=== PATIENT | male | born 1940 | race Caucasian/White ===

== ENCOUNTER 2018-06-10 12:21 | Inpatient (IN) ==
[2018-06-10] MEDS ORDERED: Sodium Chlor 0.9% Inj 500 ML IV.SIG SCH (13:00)
[2018-06-10 13:07] LABS: Baso # (Auto) 0.1 th/mm3 (0.0-0.2); Baso % (Auto) 0.6 % (0.0-2.0); Eos % (Auto) 0.1 % (0.0-4.0); Hematocrit 28.9 % (39.0-51.0); Hemoglobin 9.5 gm/dL (13.0-17.0); Lymph # (Auto) 0.7 th/mm3 (1.0-4.8); Lymph % (Auto) 7.5 % (9.0-44.0); Mean Corpuscular Hemoglobin 31.3 pg (27.0-34.0); Mean Corpuscular Volume 94.6 fL (80.0-100.0); Mean Platelet Volume 9.8 fL (7.0-11.0); Mono # (Auto) 1.2 th/mm3 (0.0-0.9); Mono % (Auto) 12.9 % (0.0-8.0); Neut # (Auto) 7.1 th/mm3 (1.8-7.7); Neut % (Auto) 78.9 % (16.0-70.0); Platelet Count 250 th/mm3 (150-450); Red Blood Count 3.05 mil/mm3 (4.50-5.90); Red Cell Distribution Width 21.1 % (11.6-17.2)
[2018-06-10 13:14] LABS: Bacteria,Urine Rare /hpf; Bilirubin,Urine Negative (Negative); Clarity,Urine Hazy (Clear); Color,Urine Yellow (Yellw/Straw); Glucose,Urine (UA) Negative (Negative); Leukocyte Esterase,Urine Trace (Negative); Nitrite,Urine Negative (Negative); Specific Gravity,Urine 1.015 (1.002-1.035)
[2018-06-10 13:17] LABS: Alanine Aminotransferase 22 U/L (12-78); Albumin 3.1 g/dL (3.4-5.0); Anion Gap 9 meq/L (5-15); Aspartate Aminotransferase 32 U/L (15-37); Blood Urea Nitrogen 33 mg/dL (7-18); Calcium 8.7 mg/dL (8.5-10.1); Carbon Dioxide 28.3 meq/L (21.0-32.0); Chloride 110 meq/L (98-107); Glomerular Filtration Rate 29 mL/min (>89); Glucose,Random 99 mg/dL (74-106); Magnesium 2.4 mg/dL (1.5-2.5); Potassium 4.5 meq/L (3.5-5.1); Sodium 147 meq/L (136-145)
[2018-06-10 13:21] LABS: Alkaline Phosphatase 73 U/L (45-117); Creatine Kinase 489 U/L (39-308); Total Protein 7.7 g/dL (6.4-8.2)
[2018-06-10 13:28] LABS: Troponin I 1.17 ng/mL (0.02-0.05)
[2018-06-10 13:37] LABS: Lymphocytes 6 % (9-44); Monocytes 19 % (0-8)
[2018-06-10 13:38] LABS: Platelet Estimate Normal (Normal)
[2018-06-10 13:41] LABS: CKMB Percent 0.8 % (0.0-4.0)
--- NOTE | 2018-06-10 13:56 | XR ---
EXAM DATE: 06/10/2018 1:49 PM EST AGE/SEX: 78 years / Male INDICATIONS: Fever. CLINICAL DATA: This is the patient's initial encounter. Patient reports that signs and symptoms have been present for 1 day and indicates a pain score of Nonresponsive. MEDICAL/SURGICAL HISTORY: Non-responsive. Non-responsive. COMPARISON: No prior exams available for comparison. FINDINGS: Minimal bibasilar airspace disease. Postsurgical features of prior median sternotomy. The cardiomedia stinal contours are unremarkable. Osseous structures are intact. CONCLUSION: 1. Minimal bibasilar airspace disease, presumably atelectasis. Formal PA and lateral views of the ch est may be obtained if there is continued clinical uncertainty. Electronically signed by: Dallas Pitts MD Board Certified Radiologist 06/10/2018 1:55 PM EST
[2018-06-10] MEDS ORDERED: Bisacodyl 10 MG Supp RECTAL PRN (14:38)
[2018-06-10] MEDS ORDERED: Acetaminophen 325 MG Tablet PO PRN (14:38)
[2018-06-10] MEDS ORDERED: Vancomycin Consult Pharmacy OTHER PRN (14:41)
--- NOTE | 2018-06-10 14:50 | CT ---
EXAM DATE: 06/10/2018 2:37 PM EST AGE/SEX: 78 years / Male INDICATIONS: Altered mental status. CLINICAL DATA: This is the patient's initial encounter. Patient reports that signs and symptoms have been present for 1 day and indicates a pain score of Nonresponsive. MEDICAL/SURGICAL HISTORY: Dementia. Diabetes. Hypertension. TIA. None. RADIATION DOSE: 37.02 CTDI (mGy) COMPARISON: No prior exams available for comparison. TECHNIQUE: CT of the head without contrast. Using automated exposure control and adjustment of the mA and/or kV according to patient size, radiation dose was kept as low as reasonably achievable to ob tain optimal diagnostic quality images. DICOM format image data is available electronically for revi ew and comparison. FINDINGS: There is a large area of cytotoxic edema involving the left MCA territory including frontoparietal lo bes and parts of the anterior temporal lobe extending into the insular gyrus. There is no hemorrhage. Diffuse brain atrophy is present with ventriculomegaly due to chronic atrophic changes. There is old encephalomalacia involving the left cerebellar hemisphere. Chronic white matter demyelinization is a lso seen. CONCLUSION: Acute nonhemorrhagic infarction left MCA territory without any mass effect. Findings were discussed w vkiash Mccray at the time of this dictation on 06/10/2018 at 2:45 hours. Electronically signed by: Wilfredo Cisenros MD Board Certified Radiologist 06/10/2018 2:48 PM EST
[2018-06-10] MEDS ORDERED: Piperacil/Tazo 3.375 GM Premix 3.375 GM/50 ML PIGGYBACK IV.SIG SCH (15:00)
[2018-06-10] MEDS: Sod Chloride 0.9% Inj 1,000 ML IV.CONT SCH (15:11)
[2018-06-10] MEDS: Heparin - SQ 10,000 UNITS/ML Vial SQ SCH ×2 (15:12→23:50)
--- NOTE | 2018-06-10 15:18 | XR ---
EXAM DATE: 06/10/2018 3:10 PM EST AGE/SEX: 78 years / Male INDICATIONS: Right foot pain, first and fifth digits, unknown injury. The patients great toe was red and black. CLINICAL DATA: This is the patient's initial encounter. Patient reports that signs and symptoms have been present for 1 day and indicates a pain score of 7/10. MEDICAL/SURGICAL HISTORY: Diabetes. None. COMPARISON: No prior exams available for comparison. FINDINGS: No definite fractures, or dislocations are identified. No definite lytic or sclerotic les ion is seen. 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 CONCLUSION: Chronic changes and no definite fracture for technique. Electronically signed by: Wilfredo Cisneros MD Board Certified Radiologist 06/10/2018 3:17 PM EST
--- NOTE | 2018-06-10 15:20 | P.PNCC ---
Subjective Subjective Remarks/Hospital Course: Acute nonhemorrhagic infarction left MCA territory without any mass effect. Objective Vital Signs / I&O: Vital Signs 06/10/18 12:27 06/10/18 12:46 06/10/18 12:47 Temperature 100.3 F H Pulse Rate 94 H 94 H Respiratory Rate 16 16 16 Blood Pressure 137/72 146/89 H Pulse Oximetry 100 06/10/18 12:53 06/10/18 12:54 Temperature Pulse Rate 89 Respiratory Rate 16 Blood Pressure Pulse Oximetry 100 Intake & Output 06/09/18 06/10/18 06/10/18 18:59 06:59 18:59 Intake Total 500 / 500 Balance 500 / 500 Weight 79.379 kg Intake: IV 500 / 500 NS Inj 500 ML @ 1000 mls/hr IV. 500 / 500 SIG BOLUS [facility] Rx#:[id number] Result Diagrams: 06/10/18 12:45 06/10/18 12:45
--- NOTE | 2018-06-10 15:22 | P.HPCC ---
History of Present Illness Service: Critical care Primary Care Physician: UNKNOWN Chief Complaint: Altered mental status History of Present Illness: Patient is a 78-year-old male who is a [facility] resident with past medical history of TIA, dementia, chronic kidney disease, hypertension, type 2 diabetes. He also has a history of gangrene of the right big toe and fifth toe and was receiving antibiotics (Bactrim and Flagyl) at the [facility]. He presented to the emergency department with altered mental status. No further history is available and time of onset is not clearly known. Further workup showed patient had evidence of UTI. His troponin was elevated at 1.4 with EKG showing evidence of lateral ischemia. A CT of the head showed acute left MCA stroke. Critical care medicine was consulted for admission of this critically ill patient. I evaluated the patient in the ED. He is lethargic eyes are spontaneously open with left gaze. He does not speak but moans on exam. Withdraws left upper and bilateral lower extremity right upper extremity is flaccid. He is severely encephalopathic and appears critically ill. Received 1 L normal saline bolus in the ED and vancomycin and Zosyn. I will continue vancomycin Zosyn after making sure cultures have been sent, Give additional 1 L fluid bolus. His stroke had been discussed with neurology Dr. Frederick. Because of unknown time of onset and overall poor prognosis he is not a candidate for any acute invasive procedures including angiogram, also his creatinine is elevated. He is developing multiorgan failure at this time. He also had right foot cellulitis and gangrene of right big toe and right fifth toe. I will consult palliative care for assistance in addressing goals of care - Diagnosis (1) Acute ischemic left MCA stroke (2) Acute encephalopathy (3) Sepsis (4) Non-ST elevation [place] (NSTEMI) (5) UTI (urinary tract infection) (6) Gangrene of right foot (7) Cellulitis of right foot (8) Altered mental status (9) Chronic kidney disease (10) TIA (transient ischemic attack) (11) Type 2 diabetes mellitus (12) Hypertension (13) Dementia Review of Systems unobtainable due to mental status PMFSH - History History Provided By: Medical Record, [employer] / EMT - Medical History Medical History: Medical History (Last Reviewed 06/10/18 @ 15:21 by Mylene Saunders MD) Anxiety CRD (chronic renal disease) Dementia Diabetes Hypertension Hypocalcemia Tourette disease Transient ischemic attack - Tobacco History Smoking Status: Unknown if ever smoked - Alcohol History How Often Do You Have a Drink Containing Alcohol: Unable to Obtain - Substance Use History Substance History: Unable to Obtain - Travel History Recent Travel in the [place] Within the Last 8 Weeks: No Recent Travel Out of the Country Within the Last 8 Weeks: No - Immunization History Tetanus Immunization: Unable to Assess Medications and Allergies Active Medications: Active Medications Acetaminophen (Tylenol) 650 mg PO Q6H PRN PRN Reason: PAIN 1-10 AND/OR FEVER >101F Al Hydroxide/Mg Hydroxide (Milk Of Magnesia Liq) 30 ml PO Q12H PRN PRN Reason: Mild Constipation Albuterol (Duoneb Neb (Prn)) 1 ampul NEB Q2HR NEB PRN PRN Reason: WHEEZING Bisacodyl (Dulcolax Supp) 10 mg RECTAL DAILY PRN PRN Reason: SEVERE CONSITIPATION Chlorhexidine Gluconate (Chlorhexidine 2% Cloth) 3 pack TOPICAL DAILY@0400 [facility] Stop: 06/16/18 03:59 Chlorhexidine Gluconate (Chlorhexidine 2% Cloth) 3 pack TOPICAL DAILY@0400 PRN PRN Reason: Extra cloth needed Stop: 06/16/18 03:59 Divalproex Sodium (Depakote Dr) 250 mg PO TID [facility] Famotidine (Pepcid Pf Inj) 10 mg IV.PUSH Q12HR [facility] Heparin Sodium (Porcine) (Heparin Inj) 5,000 units SQ Q8H [facility] Last Admin: 06/10/18 15:12 Dose: 5,000 units Sodium Chloride (Ns Inj) 1,000 mls @ 84 mls/hr IV.CONT .[id number] [facility] Last Admin: 06/10/18 15:11 Dose: 84 mls/hr Piperacillin/Tazobactam/Dextrose (Zosyn 2.25 Gm Premix) 2.25 gm in 50 mls @ 100 mls/hr IV.SIG Q6H [facility] Vancomycin HCl 1,500 mg/ (Sodium Chloride) 515 mls @ 250 mls/hr IV.SIG ONCE ONE Stop: 06/10/18 18:03 Lactulose (Lactulose Liq) 30 ml PO DAILY PRN PRN Reason: SEVERE CONSITIPATION Pharmacy Profile Note (Vancomycin Consult Pharmacy) 1 each OTHER UNSCH PRN PRN Reason: Pharmacy to dose Senna/Docusate Sodium (Danitza-Colace) 1 tab PO BID [facility] Sennosides (Senokot) 17.2 mg PO Q12H PRN PRN Reason: Moderate Constipation Sodium Chloride (Ns Flush) 2 ml IV.FLUSH BID [facility] Sodium Chloride (Ns Flush) 2 ml IV.FLUSH UNSCH PRN PRN Reason: FLUSH AFTER USING IV ACCESS Allergies Allergy/AdvReac Type Severity Reaction Status Date / Time No Known Allergies Allergy Verified 06/10/18 12:35 Home Medications Medication Instructions Recorded Confirmed Type albuterol sulfate 0.63 mg INHALATION Q4-6H PRN 06/10/18 06/10/18 History carvedilol 3.125 mg PO BID 06/10/18 06/10/18 History cholecalciferol (vitamin D3) 2,000 unit PO DAILY 06/10/18 06/10/18 History [Vitamin D3] collagenase clostridium histo. 1 applic TOPICAL DAILY 06/10/18 06/10/18 History [Santyl] dextromethorphan-guaifenesin 10 ml PO Q4-6H PRN 06/10/18 06/10/18 History [Robafen DM] divalproex 250 mg PO TID 06/10/18 06/10/18 History furosemide 30 mg PO DAILY 06/10/18 06/10/18 History insulin detemir U-100 [Levemir 20 unit SUBCUT QAM 06/10/18 06/10/18 History FlexTouch U-100 Insuln] liraglutide [Victoza 3-[place]] 0.6 mg SUBCUT DAILY 06/10/18 06/10/18 History lorazepam [Ativan] 0.5 mg PO TID 06/10/18 06/10/18 History melatonin 3 mg PO HS PRN 06/10/18 06/10/18 History memantine 10 mg PO BID 06/10/18 06/10/18 History metronidazole [Flagyl] 500 mg PO BID 06/10/18 06/10/18 History nut.tx.gluc.intol,lac-free,soy See Protocol PO BID 06/10/18 06/10/18 History [Glucerna Shake] pyridoxine (vitamin B6) [Vitamin 50 mg PO DAILY 06/10/18 06/10/18 History B-6] sulfamethoxazole-trimethoprim 1 tab PO BID 06/10/18 06/10/18 History [Bactrim DS] ziprasidone HCl 20 mg PO BID 06/10/18 06/10/18 History Results - Labs CBC & Chem 7: 06/10/18 12:45 06/10/18 12:45 Labs: Short CBC 06/10/18 Range/Units 12:45 WBC 9.0 (4.0-11.0) th/mm3 Hgb 9.5 L (13.0-17.0) gm/dL Hct 28.9 L (39.0-51.0) % Plt Count 250 (150-450) th/mm3 BMP 06/10/18 12:45 Sodium 147 H Potassium 4.5 Chloride 110 H Carbon Dioxide 28.3 BUN 33 H Creatinine 2.21 H Calcium 8.7 Cardiac Enzymes 06/10/18 Range/Units 12:45 Total Creatine Kinase 489 H (39-308) U/L CK-MB (CK-2) 4.0 H (0.5-3.6) ng/mL Troponin I 1.17 H* (0.02-0.05) ng/mL Liver Function 06/10/18 Range/Units 12:45 Total Bilirubin 0.4 (0.2-1.0) mg/dL AST 32 (15-37) U/L ALT 22 (12-78) U/L Alkaline Phosphatase 73 (45-117) U/L Albumin 3.1 L (3.4-5.0) g/dL Urine 06/10/18 Range/Units 12:45 Urine Color Yellow (Yellw/Straw) Urine Clarity Hazy H (Clear) Urine pH 5.0 (5.0-8.5) Ur Specific [place] 1.015 (1.002-1.035) Urine Protein 100 H (Neg-Trace) mg/dL Urine Glucose (UA) Negative (Negative) mg/dL - Imaging Impressions Foot X-Ray 06/10/18 00:00 CONCLUSION: Chronic changes and no definite fracture for technique. Chest X-Ray 06/10/18 12:45 CONCLUSION: 1. Minimal bibasilar airspace disease, presumably atelectasis. Formal PA and lateral views of the chest may be obtained if there is continued clinical uncertainty. Head CT 06/10/18 13:20 CONCLUSION: Acute nonhemorrhagic infarction left MCA territory without any mass effect. Findings were discussed with Dr. Mccray at the time of this dictation on 06/10/2018 at 2:45 hours. Exam Vital signs: Vital Signs 06/10/18 12:27 06/10/18 12:46 06/10/18 12:47 Temperature 100.3 F H Pulse Rate 94 H 94 H Respiratory Rate 16 16 16 Blood Pressure 137/72 146/89 H Pulse Oximetry 100 06/10/18 12:53 06/10/18 12:54 Temperature Pulse Rate 89 Respiratory Rate 16 Blood Pressure Pulse Oximetry 100 Intake & Output 06/09/18 06/10/18 06/10/18 18:59 06:59 18:59 Intake Total 500 / 500 Balance 500 / 500 Weight 79.379 kg Intake: IV 500 / 500 NS Inj 500 ML @ 1000 mls/hr IV. 500 / 500 SIG BOLUS [facility] Rx#:[id number] Narrative: GENERAL: Critically ill elderly male who is lying in ED gurney. He does not track has left gaze preference HEENT: Atraumatic normocephalic. Pupils reactive left gaze preference no nystagmus. Oral cavity is dry NECK: Supple. No JVD LUNGS: Bilateral coarse breath sounds, no wheezes or crackles HEART: S1 and S2 normal, no murmurs. ABDOMEN: Soft. Nontender no organomegaly EXTREMITIES: Right foot is tender to touch. Right big toe and right small toe has evidence of gangrene. Cellulitis surrounding right big toe extending to the dorsum of the right foot NEUROLOGIC: Patient is nonverbal but moans in between. Left gaze preference do not track. He is flaccid on the right upper extremities spontaneously moves other 3 extremities. Withdraws briskly left upper and bilateral lower extremities. Septic Shock Reassessment Septic shock perfusion: reassessment completed Caprini VTE Risk Assessment Caprini VTE Risk Assessment: Moderate/High Risk (score >= 2) Caprini Risk Assessment Model: Point Value = 1 Point Value = 2 Point Value = 3 Point Value = 5 Age 41-60 Minor surgery BMI > 25 kg/m2 Swollen legs Varicose veins or History of unexplained or recurrent spontaneous Oral contraceptives or hormone replacement Sepsis (< 1 month) Serious lung disease, including pneumonia (< 1 month) Abnormal pulmonary function Acute myocardial infarction Congestive heart failure (< 1 month) History of inflammatory bowel disease Medical patient at bed rest Age 61-74 Arthroscopic surgery Major open surgery (> 45 min) Laparoscopic surgery (> 45 min) Malignancy Confined to bed (> 72 hours) Immobilizing plaster cast Central venous access Age >= 75 History of VTE Family history of VTE Factor V Leiden Prothrombin [id number] Lupus anticoagulant Anticardiolipin antibodies Elevated serum homocysteine Heparin-induced thrombocytopenia Other congenital or acquired thrombophilia Stroke (< 1 month) Elective arthroplasty Hip, pelvis, or leg fracture Acute spinal cord injury (< 1 month) Prophylaxis Regimen: Total Risk Factor Score Risk Level Prophylaxis Regimen 0-1 Low Early ambulation 2 Moderate Order ONE of the following: *Sequential Compression Device (SCD) *Heparin 5000 units SQ BID 3-4 Higher Order ONE of the following medications: *Heparin 5000 units SQ TID *Enoxaparin/Lovenox 40 mg SQ daily (WT < 150 kg, CrCl > 30 mL/min) *Enoxaparin/Lovenox 30 mg SQ daily (WT < 150 kg, CrCl > 10-29 mL/min) *Enoxaparin/Lovenox 30 mg SQ BID (WT < 150 kg, CrCl > 30 mL/min) AND/OR *Sequential Compression Device (SCD) 5 or more Highest Order ONE of the following medications: *Heparin 5000 units SQ TID (Preferred with Epidurals) *Enoxaparin/Lovenox 40 mg SQ daily (WT < 150 kg, CrCl > 30 mL/min) *Enoxaparin/Lovenox 30 mg SQ daily (WT < 150 kg, CrCl > 10-29 mL/min) *Enoxaparin/Lovenox 30 mg SQ BID (WT < 150 kg, CrCl > 30 mL/min) AND *Sequential Compression Device (SCD) Assessment and Plan - Problem List (1) Acute ischemic left MCA stroke Code(s): I63.512 - Cerebral infarction due to unspecified occlusion or stenosis of left middle cerebral artery Status: Acute (2) Acute encephalopathy Code(s): G93.40 - Encephalopathy, unspecified Status: Acute (3) Sepsis Code(s): A41.9 - Sepsis, unspecified organism Status: Acute (4) Non-ST elevation [place] (NSTEMI) Code(s): I21.4 - Non-ST elevation (NSTEMI) myocardial infarction Status: Acute (5) UTI (urinary tract infection) Code(s): N39.0 - Urinary tract infection, site not specified Status: Acute (6) Gangrene of right foot Code(s): I96 - Gangrene, not elsewhere classified Status: Acute (7) Cellulitis of right foot Code(s): L03.115 - Cellulitis of right lower limb Status: Acute (8) Altered mental status Code(s): R41.82 - Altered mental status, unspecified Status: Acute (9) Chronic kidney disease Code(s): N18.9 - Chronic kidney disease, unspecified Status: Chronic (10) TIA (transient ischemic attack) Code(s): G45.9 - Transient cerebral ischemic attack, unspecified Status: Chronic (11) Type 2 diabetes mellitus Code(s): E11.9 - Type 2 diabetes mellitus without complications Status: Chronic (12) Hypertension Code(s): I10 - Essential (primary) hypertension Status: Chronic (13) Dementia Code(s): F03.90 - Unspecified dementia without behavioral disturbance Status: Chronic - Assessment and Plan Plan: NEURO: Acute left MCA stroke Acute metabolic encephalopathy History of TIA Dementia -CT shows acute stroke involving left MCA territory -Not a TPA candidate unknown time of onset -Not a candidate for CT angiogram due to creatinine more than 2.2, and unknown time of onset -Aspirin 81 mg daily -Further workup with 2D echo, B12, TSH, carotid Doppler -Statins when p.o. permitted -PT OT, swallow eval RESP: Respiratory insufficiency -DuoNeb every 6 hours scheduled and as needed -Monitor closely for airway protection CV: Non-ST elevation [place] Hypertension -Normal saline IV fluids 2 L bolus and 84 mL/h, 2d echo, cardiology consult, serial troponin -Start aspirin 81 mg daily, Lipitor 20 mg daily -Not a candidate for IV anticoagulation due to acute stroke -Start low-dose beta-timothy Coreg 3.125 mg twice daily -Avoid systolic blood pressure less than 150 due to acute stroke however need control due to acute [place] GI: -N.p.o. swallow evaluation, IV famotidine -NG tube placement for medication administration : Acute on chronic kidney disease -Monitor renal function closely. Place Joseph catheter. -Previous creatinine unknown. -Careful hydration as above, if creatinine not improving will consult nephrology ID/MSK: Severe sepsis UTI Left foot gangrene and cellulitis -Antibiotics in the form of vancomycin and Zosyn -Blood urine and sputum cultures -Podiatry consult for left foot gangrene HEME: Anemia -Monitor CBC, coags -Check B12 ENDO: -Electrolyte replacement as needed -Sliding scale insulin, if needed PROPH: -Bilateral lower extremity SCDs. Heparin/famotidine LINES: -Utilize peripheral IVs, central line if needed CC time 82 min Patient is very critical with poor prognosis. He has acute left MCA stroke which is large in size complicated by acute on chronic renal failure non-ST elevation [place], sepsis, right foot gangrene, cellulitis, and UTI. He is overall prognosis is very poor and I have consulted palliative care. He needs close ICU monitoring for potential neurological and respiratory decompensation Code Status: Full Discussed Condition With: Dr. Mccray (5) UTI (urinary tract infection) Qualifiers: Urinary tract infection type: site unspecified Hematuria presence: without hematuria Qualified Code(s): N39.0 - Urinary tract infection, site not specified (8) Altered mental status Qualifiers: Altered mental status type: unspecified Qualified Code(s): R41.82 - Altered mental status, unspecified
[2018-06-10] MEDS ORDERED: Piperacil/Tazo 3.375 GM Premix 3.375 GM/50 ML PIGGYBACK IV.SIG ONE (15:26)
[2018-06-10] MEDS ORDERED: Vancomycin Inj 1,000 MG in Sodium Chlor 0.9% Inj 250 ML IV.SIG ONE (15:26)
[2018-06-10] MEDS ORDERED: Sod Chloride 0.9% Inj 1,000 ML IV.SIG SCH (15:30)
[2018-06-10] MEDS ORDERED: Vancomycin Inj 1,500 MG in Sodium Chlor 0.9% Inj 500 ML IV.SIG ONE (16:00)
[2018-06-10] MEDS ORDERED: Piperacil/Tazo 2.25 GM Premix 2.25 GM/50 ML PIGGYBACK IV.SIG SCH (16:00)
--- NOTE | 2018-06-10 16:32 | ED ---
HPI General Chief Complaint: Altered Mental Status Stated Complaint: Medical Time Seen by Provider: 06/10/18 12:32 History of Present Illness HPI narrative: Is a 78-year-old male with a history of dementia, previous CVA, cellulitis of the right foot, hypertension, chronic kidney disease, diabetes mellitus, who presents from the longterm with altered mental status. According to the paramedics, the patient was last seen at his baseline of a GCS of 14 yesterday afternoon. Report was that after change of shift at night, he started to decline. This morning he was brought in nonverbal. He had somewhat of a left gaze. The patient was unable to give any history. Patient also had a low-grade temperature. He is currently being treated with topical Flagyl on his right foot that is infected as well as p.o. Bactrim. No further history could be elicited. The patient is reportedly a full code. Related Data Home Medications Medication Instructions Recorded Confirmed albuterol sulfate 0.63 mg INHALATION Q4-6H PRN 06/10/18 06/10/18 carvedilol 3.125 mg PO BID 06/10/18 06/10/18 cholecalciferol (vitamin D3) 2,000 unit PO DAILY 06/10/18 06/10/18 [Vitamin D3] collagenase clostridium histo. 1 applic TOPICAL DAILY 06/10/18 06/10/18 [Santyl] dextromethorphan-guaifenesin 10 ml PO Q4-6H PRN 06/10/18 06/10/18 [Robafen DM] divalproex 250 mg PO TID 06/10/18 06/10/18 furosemide 30 mg PO DAILY 06/10/18 06/10/18 insulin detemir U-100 [Levemir 20 unit SUBCUT QAM 06/10/18 06/10/18 FlexTouch U-100 Insuln] liraglutide [Victoza 3-Jefferson] 0.6 mg SUBCUT DAILY 06/10/18 06/10/18 lorazepam [Ativan] 0.5 mg PO TID 06/10/18 06/10/18 melatonin 3 mg PO HS PRN 06/10/18 06/10/18 memantine 10 mg PO BID 06/10/18 06/10/18 metronidazole [Flagyl] 500 mg PO BID 06/10/18 06/10/18 nut.tx.gluc.intol,lac-free,soy See Protocol PO BID 06/10/18 06/10/18 [Glucerna Shake] pyridoxine (vitamin B6) [Vitamin 50 mg PO DAILY 06/10/18 06/10/18 B-6] sulfamethoxazole-trimethoprim 1 tab PO BID 06/10/18 06/10/18 [Bactrim DS] ziprasidone HCl 20 mg PO BID 06/10/18 06/10/18 Allergies Allergy/AdvReac Type Severity Reaction Status Date / Time No Known Allergies Allergy Verified 06/10/18 12:35 Review of Systems ROS Unobtainable ROS Unobtainable: unobtainable due to mental status (Patient is nonverbal and gives no further history. Please see HPI) [facility] Social History Social History Substance History: Unable to Obtain Smoking Status: Unknown if ever smoked How Often Do You Have a Drink Containing Alcohol: Unable to Obtain Recent Travel in [facility] within the Last 8 Weeks: No Recent Out of Country Travel within the Last 8 Weeks: No Immunization History Tetanus Immunization: Unable to Assess Exam Narrative Exam Narrative: GENERAL: Well-developed ill-appearing male in no acute respiratory distress. SKIN: Focused skin assessment warm/dry. Patient has necrotic right great toe and right fifth toe. There is cellulitis over the foot as well. HEAD: Atraumatic. Normocephalic. EYES: Predominantly left-sided gaze. No scleral icterus. No injection or drainage. ENT: No nasal bleeding or discharge. Mucous membranes pink and moist. NECK: Trachea midline. No JVD. CARDIOVASCULAR: Regular rate and rhythm. Questionable murmur heard at the left sternal border. RESPIRATORY: No accessory muscle use. Clear to auscultation. Breath sounds equal bilaterally. Decreased respiratory effort. GASTROINTESTINAL: Abdomen soft, non-tender, nondistended. No pulsatile masses. MUSCULOSKELETAL: No obvious deformities. Patient appears to be contracted in the left upper and left lower extremity. There is necrotic toes as above on the right foot. NEUROLOGICAL: Awake and nonverbal. Patient had a predominant left-sided gaze. He would not follow commands. Course Initial Documented Vital Signs Temperature 100.3 F H 06/10/18 12:27 Pulse Rate 94 H 06/10/18 12:27 Respiratory Rate 16 06/10/18 12:27 Blood Pressure 137/72 06/10/18 12:27 Last Documented Vital Signs Temperature 100.3 F H 06/10/18 12:27 Pulse Rate 66 06/10/18 15:41 Respiratory Rate 14 06/10/18 15:41 Blood Pressure 153/66 H 06/10/18 15:41 Pulse Oximetry 99 06/10/18 15:41 Critical Care Time Critical Care Time: Yes Total Critical Care Time: 45 Attestation: Aggregate critical care time was 45 minutes. Time to perform other separately billable procedures was not included in the critical care time. My time did not include minutes spent treating any other patients simultaneously or on activities that did not directly contribute to the patient's treatment. The services I provided to this patient were to treat and/or prevent clinically significant deterioration that could result in: I provided critical care services requiring my management, as noted below: Chart data review, documentation time, medication orders and management, vital sign assessments/reviewing monitor data, ordering and reviewing lab tests, ordering and interpreting/reviewing x-rays and diagnostic studies, care of the patient and discussion of the patient with the admitting physicians. Medical Decision Making MDM Narrative Medical decision making narrative: 78-year-old male with a history of chronic kidney disease, TIAs, diabetes mellitus, hypertension, dementia, presents from the longterm with altered mental status. The patient is febrile and appears septic. He also has necrosis of his right great toe and fifth toe. He is been given Vanco and Zosyn. The patient CT scan came back showing a nonhemorrhagic stroke. In conference with the neurologist, automation and controls supervisor, the patient at this time is not a TPA candidate. He will be admitted to the intensive care service under Dr. Saunders. Medical Screen Exam Complete: Yes Emergency Medical Condition: Yes Differential Diagnosis Differential Diagnosis: Sepsis versus metabolic derangement versus CVA Lab Data Result diagrams: 06/10/18 12:45 06/10/18 12:45 Lab Results 06/10/18 06/10/18 06/10/18 Range/Units 12:45 12:45 12:45 WBC 9.0 (4.0-11.0) th/mm3 RBC 3.05 L (4.50-5.90) mil/mm3 Hgb 9.5 L (13.0-17.0) gm/dL Hct 28.9 L (39.0-51.0) % MCV 94.6 (80.0-100.0) fL MCH 31.3 (27.0-34.0) pg MCHC 33.0 (32.0-36.0) % RDW 21.1 H (11.6-17.2) % Plt Count 250 (150-450) th/mm3 MPV 9.8 (7.0-11.0) fL Prelim Diff (Auto) Slide review pending Neut % (Auto) 78.9 H (16.0-70.0) % Lymph % (Auto) 7.5 L (9.0-44.0) % [place] % (Auto) 12.9 H (0.0-8.0) % Eos % (Auto) 0.1 (0.0-4.0) % Baso % (Auto) 0.6 (0.0-2.0) % Neut # (Auto) 7.1 (1.8-7.7) th/mm3 Lymph # (Auto) 0.7 L (1.0-4.8) th/mm3 [place] # (Auto) 1.2 H (0.0-0.9) th/mm3 Eos # (Auto) 0.0 (0.0-0.4) th/mm3 Baso # (Auto) 0.1 (0.0-0.2) th/mm3 WBC Differential Manual diff final Seg Neuts % (Manual) 61 (16-70) % Band Neuts % (Manual) 14 H (0-6) % Lymphocytes % (Manual) 6 L (9-44) % Monocytes % (Manual) 19 H (0-8) % Abs Neuts (Manual) 6.8 (1.8-7.7) th/mm3 Differential Comment . Platelet Estimate Normal (Normal) Platelet Morphology Enlarged H (Normal) Sodium 147 H (136-145) meq/L Potassium 4.5 (3.5-5.1) meq/L Chloride 110 H (98-107) meq/L Carbon Dioxide 28.3 (21.0-32.0) meq/L Anion Gap 9 (5-15) meq/L BUN 33 H (7-18) mg/dL Creatinine 2.21 H (0.60-1.30) mg/dL Estimated GFR 29 L (>89) mL/min Random Glucose 99 (74-106) mg/dL Lactic Acid 2.0 (0.4-2.0) mmol/L Calcium 8.7 (8.5-10.1) mg/dL Magnesium 2.4 (1.5-2.5) mg/dL Total Bilirubin 0.4 (0.2-1.0) mg/dL AST 32 (15-37) U/L ALT 22 (12-78) U/L Alkaline Phosphatase 73 (45-117) U/L Total Creatine Kinase 489 H (39-308) U/L CK-MB (CK-2) 4.0 H (0.5-3.6) ng/mL CK-MB (CK-2) % 0.8 (0.0-4.0) % Troponin I 1.17 H* (0.02-0.05) ng/mL Total Protein 7.7 (6.4-8.2) g/dL Albumin 3.1 L (3.4-5.0) g/dL Urine Color (Yellw/Straw) Urine Clarity (Clear) Urine pH (5.0-8.5) Ur Specific [place] (1.002-1.035) Urine Protein (Neg-Trace) mg/dL Urine Glucose (UA) (Negative) mg/dL Urine Ketones (Negative) mg/dL Urine Occult Blood (Negative) Urine Nitrate (Negative) Urine Bilirubin (Negative) Urine Urobilinogen (Less than 2) mg/dL Ur Leukocyte Esterase (Negative) Urine RBC (0-3) /hpf Urine WBC (0-5) /hpf Urine Bacteria (None) /hpf Micro UA Comment Ur Microscopic Review Urine Culture Comments 06/10/18 Range/Units 12:45 WBC (4.0-11.0) th/mm3 RBC (4.50-5.90) mil/mm3 Hgb (13.0-17.0) gm/dL Hct (39.0-51.0) % MCV (80.0-100.0) fL MCH (27.0-34.0) pg MCHC (32.0-36.0) % RDW (11.6-17.2) % Plt Count (150-450) th/mm3 MPV (7.0-11.0) fL Prelim Diff (Auto) Neut % (Auto) (16.0-70.0) % Lymph % (Auto) (9.0-44.0) % [place] % (Auto) (0.0-8.0) % Eos % (Auto) (0.0-4.0) % Baso % (Auto) (0.0-2.0) % Neut # (Auto) (1.8-7.7) th/mm3 Lymph # (Auto) (1.0-4.8) th/mm3 [place] # (Auto) (0.0-0.9) th/mm3 Eos # (Auto) (0.0-0.4) th/mm3 Baso # (Auto) (0.0-0.2) th/mm3 WBC Differential Seg Neuts % (Manual) (16-70) % Band Neuts % (Manual) (0-6) % Lymphocytes % (Manual) (9-44) % Monocytes % (Manual) (0-8) % Abs Neuts (Manual) (1.8-7.7) th/mm3 Differential Comment Platelet Estimate (Normal) Platelet Morphology (Normal) Sodium (136-145) meq/L Potassium (3.5-5.1) meq/L Chloride (98-107) meq/L Carbon Dioxide (21.0-32.0) meq/L Anion Gap (5-15) meq/L BUN (7-18) mg/dL Creatinine (0.60-1.30) mg/dL Estimated GFR (>89) mL/min Random Glucose (74-106) mg/dL Lactic Acid (0.4-2.0) mmol/L Calcium (8.5-10.1) mg/dL Magnesium (1.5-2.5) mg/dL Total Bilirubin (0.2-1.0) mg/dL AST (15-37) U/L ALT (12-78) U/L Alkaline Phosphatase (45-117) U/L Total Creatine Kinase (39-308) U/L CK-MB (CK-2) (0.5-3.6) ng/mL CK-MB (CK-2) % (0.0-4.0) % Troponin I (0.02-0.05) ng/mL Total Protein (6.4-8.2) g/dL Albumin (3.4-5.0) g/dL Urine Color Yellow (Yellw/Straw) Urine Clarity Hazy H (Clear) Urine pH 5.0 (5.0-8.5) Ur Specific [place] 1.015 (1.002-1.035) Urine Protein 100 H (Neg-Trace) mg/dL Urine Glucose (UA) Negative (Negative) mg/dL Urine Ketones Negative (Negative) mg/dL Urine Occult Blood Moderate H (Negative) Urine Nitrate Negative (Negative) Urine Bilirubin Negative (Negative) Urine Urobilinogen 2.0 H (Less than 2) mg/dL Ur Leukocyte Esterase Trace H (Negative) Urine RBC 18 H (0-3) /hpf Urine WBC 31 H (0-5) /hpf Urine Bacteria Rare H (None) /hpf Micro UA Comment Cath-culture ind Ur Microscopic Review Not Reportable Urine Culture Comments Cath-cult indicated Imaging Data Radiologist's impression: Foot X-Ray 06/10/18 00:00 CONCLUSION: Chronic changes and no definite fracture for technique. Chest X-Ray 06/10/18 12:45 CONCLUSION: 1. Minimal bibasilar airspace disease, presumably atelectasis. Formal PA and lateral views of the chest may be obtained if there is continued clinical uncertainty. Head CT 06/10/18 13:20 CONCLUSION: Acute nonhemorrhagic infarction left MCA territory without any mass effect. Findings were discussed with Dr. Mccray at the time of this dictation on 06/10/2018 at 2:45 hours. Discharge Plan Discharge Disposition Patient Disposition: ED Admit(ED Internal Use Only) Discharge Order Discharge Orders: ED Use Only Admit Order (Routine); Ordered 06/10/18 Ordered By: Don Mccray Discharge Details Diagnosis: Altered mental status, Sepsis, Non-ST elevation SD (NSTEMI), UTI (urinary tract infection), Gangrene of right foot, Acute cerebrovascular accident Physicians Team ED Provider: Don Mccray Primary Care Provider: UNKNOWN, Attending Provider: Mylene Saunders Other Providers: Yanni Callaway ; Mariluz Velazquez ; Kenia Alexander Discharge Interventions Interventions: Vital Signs Last Done: 06/10/18 12:46 Status ED Status: Admitted Patient
--- NOTE | 2018-06-10 16:42 | US ---
EXAM DATE: 06/10/2018 4:40 PM EST AGE/SEX: 78 years / Male INDICATIONS: Altered mental status. CLINICAL DATA: This is the patient's initial encounter. Patient reports that signs and symptoms have been present for 1 day and indicates a pain score of Nonresponsive. MEDICAL/SURGICAL HISTORY: Hypertension. Diabetes. Transient ischemic attack. Hypocalcemia. T ourette disease. None. COMPARISON: No prior exams available for comparison. VELOCITY PARAMETERS: ICA/CCA Ratio: Right 0.9 , Left 0.8 ICA: Right 69 cm/sec, Left 79 cm/sec CCA: Right 76 cm/sec, Left 103 cm/sec ECA: Right 133 cm/sec, Left 97 cm/sec Vertebral: Right 38 cm/sec antegrade, Left Not visualized. Cm/sec absent FINDINGS: Right Carotid: Moderate arteriosclerotic plaque is visualized.The waveforms are within normal limits . Left Carotid: Moderate arteriosclerotic plaque is visualized. The waveforms are within normal limits . Other: None. CONCLUSION: 1. Moderate atherosclerotic plaquing at both carotid bifurcations. 2. No focal high-grade or hemodynamically significant stenosis. 3. The left vertebral artery was not visualized. Electronically signed by: Олег Gautam MD Board Certified Radiologist 06/10/2018 4:41 PM EST
--- NOTE | 2018-06-10 17:32 | P.PNPAL ---
Palliative care was consulted to assist and clarification of medical treatment goals in this 78-year-old male patient with dementia who was admitted with acute CVA, sepsis, right foot gangrene and NSTEMI. Patient is a resident at [facility]. Spoke to the merit system director at [facility] who stated the patient did not have written advanced directives or any known family. Attempted to contact Tatum Vargas, court appointed guardian, at . Message left on Mrs. Vargas's voicemail with [facility] contact information;awaiting return phone call. Goals remain aggressive pending conversations with patient's court appointed guardian. Dr. Saunders notified.
--- NOTE | 2018-06-10 19:04 | MB ---
cc: Mike Johnosn MD DATE: 06/10/2018 REASON FOR CONSULTATION: Abnormal troponin level. HISTORY OF PRESENT ILLNESS: The patient is unable to give any history. He is nonverbal. He apparently is a 78-year-old white male with a history of dementia, CVA, hypertension, chronic renal insufficiency, diabetes, who was brought to the hospital due to mental status changes. Troponin level was checked and found to be abnormal. The patient appears to be resting comfortably. PAST MEDICAL HISTORY: 1. Dementia. 2. Cerebrovascular accident. 3. Hypertension. 4. Chronic renal insufficiency. 5. Diabetes. PAST SURGICAL HISTORY: Unknown. CARDIAC MEDICATIONS AT HOME: 1. Furosemide 30 mg daily. 2. Carvedilol 3.125 mg b.i.d. ALLERGIES: NO KNOWN DRUG ALLERGIES. FAMILY HISTORY: Currently unobtainable. SOCIAL HISTORY: Currently unobtainable. REVIEW OF SYSTEMS: Currently unobtainable. PHYSICAL EXAMINATION: VITAL SIGNS: His blood pressure 157/70 with a pulse of 100, and respirations 20. GENERAL: He is a well-developed, well-nourished white male, in no acute distress. HEENT: Jugular venous pressure is normal. Carotid pulses are 2+ bilaterally and without bruits. CHEST: Reveals clear lungs pro anteriorly. CARDIAC: He has a regular rhythm and rate with a grade 1-2/6 systolic murmur heard at the lower left sternal border. No gallop is audible. ABDOMEN: He has a soft, nontender abdomen. Bowel sounds are present. There is no definite hepatosplenomegaly. EXTREMITIES: Reveals no clubbing, cyanosis or edema. LABORATORY DATA: EKG shows extensive baseline artifact, possible sinus rhythm, anterolateral ST and T-wave abnormality, consider ischemia. Chest x-ray shows minimal bibasilar airspace disease. LABORATORY DATA: Includes WBC 9.0, hemoglobin 9.5, platelets 250. Potassium 4.5, BUN 33, creatinine 2.21, AST 32, ALT 22. CK 489, with 0.8% MB fraction. Troponin 1.17. IMPRESSION: Mildly elevated troponin level in the setting of renal insufficiency in this 78-year-old white male with a history of hypertension, diabetes, chronic renal insufficiency, CVA, dementia, admitted with mental status changes. It is somewhat difficult to interpret the significance of the elevated troponin level in the setting of a creatinine of 2.2. CK MB% is negative for myocardial infarction. Unfortunately, clinical history is unobtainable from the patient at this time. He has no reported history of coronary artery disease. EKG does show anterolateral ST and T-wave abnormalities suggestive of ischemia, the chronicity of which is unclear. Given his poor functional status, renal insufficiency, comorbid conditions, would recommend conservative cardiac management and workup. RECOMMENDATIONS: 1. Agree with continuing his carvedilol and adding daily aspirin. 2. Await his 2-D echo. 3. As noted above, given his renal insufficiency and comorbid conditions recommend conservative cardiac management. MD ANDI Patrick/wenceslao , 06:40 PM , 06:48 PM MTDKari
[2018-06-10] MEDS: Senna/Docusate Sodium 8.6/50 MG Tablet PO SCH (20:38)
[2018-06-10] MEDS: Famotidine PF Inj 20 MG/2 ML Vial IV.PUSH SCH (20:41)
[2018-06-10] MEDS: Piperacil/Tazo 2.25 GM Premix 2.25 GM/50 ML PIGGYBACK IV.SIG SCH (23:51)
[2018-06-10 23:57] LABS: Troponin I 1.15 ng/mL (0.02-0.05)
[2018-06-11 03:08] LABS: Baso % (Auto) 0.5 % (0.0-2.0); Eos % (Auto) 0.3 % (0.0-4.0); Hemoglobin 8.7 gm/dL (13.0-17.0); Lymph # (Auto) 0.8 th/mm3 (1.0-4.8); Lymph % (Auto) 11.6 % (9.0-44.0); Mean Corpuscular HGB Conc 33.4 % (32.0-36.0); Mean Corpuscular Hemoglobin 31.4 pg (27.0-34.0); Mean Corpuscular Volume 93.9 fL (80.0-100.0); Mean Platelet Volume 10.1 fL (7.0-11.0); Mono % (Auto) 14.2 % (0.0-8.0); Neut # (Auto) 5.2 th/mm3 (1.8-7.7); Neut % (Auto) 73.4 % (16.0-70.0); Platelet Count 209 th/mm3 (150-450); Red Blood Count 2.77 mil/mm3 (4.50-5.90)
[2018-06-11] MEDS: Piperacil/Tazo 2.25 GM Premix 2.25 GM/50 ML PIGGYBACK IV.SIG SCH ×4 (03:14→22:34)
[2018-06-11] MEDS: Sod Chloride 0.9% Inj 1,000 ML IV.CONT SCH ×2 (03:15→14:51)
[2018-06-11] MEDS ORDERED: Chlorhexidine Gluconate 2% 1 Pack (2 Cloths) TOPICAL PRN (04:00)
[2018-06-11 04:06] LABS: Alanine Aminotransferase 21 U/L (12-78); Albumin 2.6 g/dL (3.4-5.0); Alkaline Phosphatase 62 U/L (45-117); Anion Gap 11 meq/L (5-15); Aspartate Aminotransferase 32 U/L (15-37); Blood Urea Nitrogen 32 mg/dL (7-18); Calcium 7.8 mg/dL (8.5-10.1); Carbon Dioxide 22.1 meq/L (21.0-32.0); Chloride 116 meq/L (98-107); Glomerular Filtration Rate 37 mL/min (>89); Glucose,Random 114 mg/dL (74-106); Magnesium 2.1 mg/dL (1.5-2.5); Potassium 4.4 meq/L (3.5-5.1); Sodium 149 meq/L (136-145); Total Protein 6.6 g/dL (6.4-8.2); Vancomycin,Random 9.8 Comment
[2018-06-11] MEDS: Heparin - SQ 10,000 UNITS/ML Vial SQ SCH ×2 (07:57→15:23)
[2018-06-11] MEDS: Famotidine PF Inj 20 MG/2 ML Vial IV.PUSH SCH ×2 (08:00→20:46)
[2018-06-11] MEDS: Senna/Docusate Sodium 8.6/50 MG Tablet PO SCH ×2 (08:00→20:45)
[2018-06-11] MEDS: Divalproex 250 MG DR Tablet PO SCH ×4 (08:00→17:27)
--- NOTE | 2018-06-11 11:16 | MB ---
cc: Mariluz Velazquez MD DATE: 06/11/2018 REASON FOR CONSULT: Stroke. HISTORY OF PRESENT ILLNESS: This is a 78-year-old man, resident of a [place] [facility], with prior history of transient ischemic attack, dementia, chronic kidney disease, type 2 diabetes, hypertension, gangrene of the left big toe and fifth toe, on antibiotics at the [place] [facility]. He comes in with altered mental status. No further history. Admitted to ICU, not on the ventilator, found to have a left MCA infarct without mass effect on his CT. There was no time of onset when he came in. Due to the patient's presentation, he was not deemed a tPA candidate. PHYSICAL EXAMINATION: VITAL SIGNS: Temperature is 98.4, pulse 85, respiratory rate 17, blood pressure 112/56, saturating at 100%. GENERAL: The patient is a 78-year-old man, lying in bed, in no distress, nonverbal, tense gaze to the right. Pupils are pinpoint and reactive. Does not follow commands. Withdraws to pain, moans. Toes withdraws. Does not follow any commands. LABORATORY DATA: Reviewed. His hemoglobin is 8.7, white count 7, platelets 209,000. His chemistries: Sodium 149, BUN 32, creatinine 1.79, GFR of 37, albumin 2.6. B12 677. TSH 1.570. UA culture is pending. Moderate blood, 31 white cells. IMAGING STUDIES: CT head confirms an acute infarct, left MCA without any mass effect. Carotid ultrasound shows moderate arthrosclerosis both bifurcations of the carotid, not nonvisualized left vertebral. No focal high-grade stenosis. ASSESSMENT AND PLAN: A 78-year-old man with a left middle cerebral artery stroke. Recommend completing a stroke workup. We will get an echo. I believe he has been seen by cardiology. Get an MRI of brain [place]. Start him on aspirin. Continue Lipitor. Check a lipid panel. Permissible hypertension. Monitor for any mass effect. I believe palliative is on the case. Trying to find who his legal POA court-appointed is. I believe they left a message on this person's phone. Will continue current care and make further recommendations accordingly. I will go ahead and order an MRI/MRA for completion. MD Karine Blanchard , 10:46 AM , 10:52 AM
--- NOTE | 2018-06-11 12:46 | P.CONPOD ---
History of Present Illness Service: podiatry Consult date: 06/11/18 Reason for Consult: right 1st/5th toes necrotic Primary Care Provider: UNKNOWN Chief Complaint: Altered mental status History of Present Illness: Patient known to me in [facility] has not been seen in quite some time. Now with signs of gangrenous changes to right 1st and 5th digits. He is not awake, so uncertain of how long it has been present or if painful. He is not a good historian due to dementia, as well, and comes to my clinic with a health customer sales representative each time. Review of Systems All other systems reviewed negative except as stated in [facility] - History History Provided By: Medical Record, Bullet Maker / EMT - Medical History Medical History: Medical History (Last Reviewed 06/11/18 @ 11:40 by Rocio Vera) Anxiety CRD (chronic renal disease) Dementia Diabetes Hypertension Hypocalcemia Tourette disease Transient ischemic attack - Tobacco History Smoking Status: Unknown if ever smoked - Alcohol History How Often Do You Have a Drink Containing Alcohol: Unable to Obtain - Substance Use History Substance History: Unable to Obtain - Travel History Recent Travel in the [facility] Within the Last 8 Weeks: No Recent Travel Out of the Country Within the Last 8 Weeks: No - Immunization History Tetanus Immunization: Unable to Assess Medications and Allergies Active Medications: Active Medications Acetaminophen (Tylenol) 650 mg PO Q6H PRN PRN Reason: PAIN 1-10 AND/OR FEVER >101F Al Hydroxide/Mg Hydroxide (Milk Of [place] Liq) 30 ml PO Q12H PRN PRN Reason: Mild Constipation Albuterol (Duoneb Neb (Prn)) 1 ampul NEB Q2HR NEB PRN PRN Reason: WHEEZING Albuterol (Duoneb Neb (Maria Luz)) 1 ampul NEB Q6HR NEB [facility] Last Admin: 06/11/18 09:22 Dose: 1 ampul Aspirin (Aspirin Chew) 81 mg PO DAILY [facility] Last Admin: 06/11/18 09:17 Dose: 81 mg Atorvastatin Calcium (Lipitor) 20 mg PO HS [facility] Last Admin: 06/10/18 20:37 Dose: 20 mg Bisacodyl (Dulcolax Supp) 10 mg RECTAL DAILY PRN PRN Reason: SEVERE CONSITIPATION Carvedilol (Coreg) 3.125 mg PO BID [facility] Last Admin: 06/11/18 08:00 Dose: 3.125 mg Chlorhexidine Gluconate (Chlorhexidine 2% Cloth) 3 pack TOPICAL DAILY@0400 [facility] Stop: 06/16/18 03:59 Chlorhexidine Gluconate (Chlorhexidine 2% Cloth) 3 pack TOPICAL DAILY@0400 PRN PRN Reason: Extra cloth needed Stop: 06/16/18 03:59 Divalproex Sodium (Depakote Dr) 250 mg PO TID [facility] Last Admin: 06/11/18 08:00 Dose: 250 mg Famotidine (Pepcid Pf Inj) 10 mg IV.PUSH Q12HR [facility] Last Admin: 06/11/18 08:00 Dose: 10 mg Heparin Sodium (Porcine) (Heparin Inj) 5,000 units SQ Q8H [facility] Last Admin: 06/11/18 07:57 Dose: 5,000 units Sodium Chloride (Ns Inj) 1,000 mls @ 84 mls/hr IV.CONT .[id number] [facility] Last Admin: 06/11/18 03:15 Dose: 84 mls/hr Piperacillin/Tazobactam/Dextrose (Zosyn 2.25 Gm Premix) 2.25 gm in 50 mls @ 100 mls/hr IV.SIG Q6H [facility] Last Admin: 06/11/18 11:43 Dose: 100 mls/hr Vancomycin HCl 1,000 mg/ (Sodium Chloride) 250 mls @ 250 mls/hr IV.SIG Q24H [facility] Lactulose (Lactulose Liq) 30 ml PO DAILY PRN PRN Reason: SEVERE CONSITIPATION Miscellaneous Information ([facility] [place] [facility] Ordered Lab Info) 0 each OTHER ONCE ONE Stop: 06/13/18 15:46 Pharmacy Profile Note (Vancomycin Consult Pharmacy) 1 each OTHER UNSCH PRN PRN Reason: Pharmacy to dose Senna/Docusate Sodium (Danitza-Colace) 1 tab PO BID [facility] Last Admin: 06/11/18 08:00 Dose: 1 tab Sennosides (Senokot) 17.2 mg PO Q12H PRN PRN Reason: Moderate Constipation Sodium Chloride (Ns Flush) 2 ml IV.FLUSH BID [facility] Last Admin: 06/11/18 08:01 Dose: 2 ml Sodium Chloride (Ns Flush) 2 ml IV.FLUSH UNSCH PRN PRN Reason: FLUSH AFTER USING IV ACCESS Allergies Allergy/AdvReac Type Severity Reaction Status Date / Time No Known Allergies Allergy Verified 06/10/18 12:35 Home Medications Medication Instructions Recorded Confirmed Type albuterol sulfate 0.63 mg INHALATION Q4-6H PRN 06/10/18 06/10/18 History carvedilol 3.125 mg PO BID 06/10/18 06/10/18 History cholecalciferol (vitamin D3) 2,000 unit PO DAILY 06/10/18 06/10/18 History [Vitamin D3] collagenase clostridium histo. 1 applic TOPICAL DAILY 06/10/18 06/10/18 History [Santyl] dextromethorphan-guaifenesin 10 ml PO Q4-6H PRN 06/10/18 06/10/18 History [Robafen DM] divalproex 250 mg PO TID 06/10/18 06/10/18 History furosemide 30 mg PO DAILY 06/10/18 06/10/18 History insulin detemir U-100 [Levemir 20 unit SUBCUT QAM 06/10/18 06/10/18 History FlexTouch U-100 Insuln] liraglutide [Victoza 3-[place]] 0.6 mg SUBCUT DAILY 06/10/18 06/10/18 History lorazepam [Ativan] 0.5 mg PO TID 06/10/18 06/10/18 History melatonin 3 mg PO HS PRN 06/10/18 06/10/18 History memantine 10 mg PO BID 06/10/18 06/10/18 History metronidazole [Flagyl] 500 mg PO BID 06/10/18 06/10/18 History nut.tx.gluc.intol,lac-free,soy See Protocol PO BID 06/10/18 06/10/18 History [Glucerna Shake] pyridoxine (vitamin B6) [Vitamin 50 mg PO DAILY 06/10/18 06/10/18 History B-6] sulfamethoxazole-trimethoprim 1 tab PO BID 06/10/18 06/10/18 History [Bactrim DS] ziprasidone HCl 20 mg PO BID 06/10/18 06/10/18 History Physical Exam Vital signs: Vital Signs 06/10/18 12:46 06/10/18 12:47 06/10/18 12:53 Temperature Pulse Rate 94 H 89 Respiratory Rate 16 16 Blood Pressure 146/89 H Pulse Oximetry 100 100 06/10/18 12:54 06/10/18 15:41 06/10/18 16:33 Temperature Pulse Rate 66 68 Respiratory Rate 16 14 18 Blood Pressure 153/66 H Pulse Oximetry 99 06/10/18 17:18 06/10/18 17:42 06/10/18 17:43 Temperature Pulse Rate 93 H 97 H Respiratory Rate 16 23 16 Blood Pressure 145/66 H Pulse Oximetry 100 100 06/10/18 18:00 06/10/18 18:30 06/10/18 19:00 Temperature 98.7 F Pulse Rate 100 H 92 H 99 H Respiratory Rate 23 18 25 H Blood Pressure 157/71 H 138/65 143/71 H Pulse Oximetry 100 100 100 06/10/18 19:30 06/10/18 20:00 06/10/18 20:30 Temperature 98.8 F Pulse Rate 93 H 93 H 92 H Respiratory Rate 28 H 20 22 Blood Pressure 151/71 H 135/63 131/63 Pulse Oximetry 99 98 100 06/10/18 21:00 06/10/18 21:16 06/10/18 21:30 Temperature Pulse Rate 92 H 102 H 89 Respiratory Rate 21 20 21 Blood Pressure 133/64 123/57 L Pulse Oximetry 99 99 100 06/10/18 22:00 06/10/18 22:30 06/10/18 23:00 Temperature Pulse Rate 88 95 H 99 H Respiratory Rate 20 22 22 Blood Pressure 129/68 127/81 115/67 Pulse Oximetry 98 100 99 06/10/18 23:30 06/11/18 00:00 06/11/18 00:30 Temperature 98.4 F Pulse Rate 93 H 91 H 107 H Respiratory Rate 23 22 21 Blood Pressure 114/58 L 112/63 135/60 Pulse Oximetry 97 100 96 06/11/18 01:00 06/11/18 01:30 06/11/18 02:00 Temperature Pulse Rate 93 H 103 H 93 H Respiratory Rate 25 H 17 21 Blood Pressure 134/56 L 126/58 L 126/60 Pulse Oximetry 99 98 100 06/11/18 02:36 06/11/18 03:00 06/11/18 03:30 Temperature Pulse Rate 111 H 97 H 106 H Respiratory Rate 25 H 22 21 Blood Pressure 127/65 146/67 H 129/62 Pulse Oximetry 95 100 98 06/11/18 03:40 06/11/18 04:00 06/11/18 04:30 Temperature 98.0 F Pulse Rate 103 H 110 H 117 H Respiratory Rate 20 21 20 Blood Pressure 129/63 120/70 Pulse Oximetry 100 99 06/11/18 05:00 06/11/18 05:30 06/11/18 06:00 Temperature Pulse Rate 102 H 118 H 108 H Respiratory Rate 22 21 23 Blood Pressure 132/64 129/73 137/63 Pulse Oximetry 99 99 79 L 06/11/18 06:30 06/11/18 07:00 06/11/18 07:30 Temperature Pulse Rate 107 H 95 H 98 H Respiratory Rate 18 23 17 Blood Pressure 123/64 122/56 L 128/64 Pulse Oximetry 100 85 L 100 06/11/18 08:00 06/11/18 08:30 06/11/18 09:00 Temperature 98.4 F Pulse Rate 91 H 75 99 H Respiratory Rate 20 25 H 23 Blood Pressure 113/72 133/59 L 123/75 Pulse Oximetry 100 98 99 06/11/18 09:22 06/11/18 09:31 06/11/18 10:00 Temperature Pulse Rate 95 H 84 102 H Respiratory Rate 20 20 24 Blood Pressure 139/57 L 134/63 Pulse Oximetry 97 100 99 06/11/18 10:30 Temperature Pulse Rate 85 Respiratory Rate 17 Blood Pressure 112/56 L Pulse Oximetry 100 Intake & Output 06/10/18 06/11/18 06/11/18 18:59 06:59 18:59 Intake Total 800 / 800 1220 / 1220 Balance 800 / 800 1220 / 1220 Weight 61 kg 60.5 kg Intake: IV 800 / 800 1100 / 1100 NS Inj 1,000 ML @ 84 mls/hr IV. 1000 / 1000 CONT .[id number] MARIA LUZ Rx#:[id number] Zosyn 2.25 GM Premix 2.25 gm In 100 / 100 50 ml @ 100 mls/hr IV.SIG Q6H MARIA LUZ Rx#:[id number] Zosyn 3.375 GM Premix 3.375 gm 50 / 50 In 50 ml @ 100 mls/hr IV.SIG ONCE ONE Rx#:[id number] NS Inj 500 ML @ 1000 mls/hr IV. 500 / 500 SIG BOLUS MARIA LUZ Rx#:[id number] Vancomycin Inj 1,000 MG In NS 250 / 250 Inj 250 ML @ 250 mls/hr IV.SIG ONCE ONE Rx#:[id number] Water Bolus Amount 120 / 120 Other: # Voids 5 Weight On Admission 61 kg Narrative: Right distal hallux and 5th toe with dark necrotic tissue to plantar pad. Stable margins. Cool skin temperature. No signs of acute infection. No erythema , no purulence. Thin atrophic skin. Nonpalpable pedal pulses. Results - Labs CBC & Chem 7: 06/11/18 02:20 06/11/18 02:20 Laboratory Results - last 24 hr 06/10/18 06/10/18 06/10/18 12:45 12:45 12:45 WBC 9.0 RBC 3.05 L Hgb 9.5 L Hct 28.9 L MCV 94.6 MCH 31.3 MCHC 33.0 RDW 21.1 H Plt Count 250 MPV 9.8 Prelim Diff (Auto) Slide review pending Neut % (Auto) 78.9 H Lymph % (Auto) 7.5 L [place] % (Auto) 12.9 H Eos % (Auto) 0.1 Baso % (Auto) 0.6 Neut # (Auto) 7.1 Lymph # (Auto) 0.7 L [place] # (Auto) 1.2 H Eos # (Auto) 0.0 Baso # (Auto) 0.1 WBC Differential Manual diff final Seg Neuts % (Manual) 61 Band Neuts % (Manual) 14 H Lymphocytes % (Manual) 6 L Monocytes % (Manual) 19 H Abs Neuts (Manual) 6.8 Differential Comment . Platelet Estimate Normal Platelet Morphology Enlarged H Sodium 147 H Potassium 4.5 Chloride 110 H Carbon Dioxide 28.3 Anion Gap 9 BUN 33 H Creatinine 2.21 H Estimated GFR 29 L Random Glucose 99 Lactic Acid 2.0 Calcium 8.7 Magnesium 2.4 Total Bilirubin 0.4 AST 32 ALT 22 Alkaline Phosphatase 73 Total Creatine Kinase 489 H CK-MB (CK-2) 4.0 H CK-MB (CK-2) % 0.8 Troponin I 1.17 H* Total Protein 7.7 Albumin 3.1 L Vitamin B12 TSH 1.570 Urine Color Urine Clarity Urine pH Ur Specific [place] Urine Protein Urine Glucose (UA) Urine Ketones Urine Occult Blood Urine Nitrate Urine Bilirubin Urine Urobilinogen Ur Leukocyte Esterase Urine RBC Urine WBC Urine Bacteria Micro UA Comment Ur Microscopic Review Urine Culture Comments Nasal Screen MRSA (PCR) Random Vancomycin 06/10/18 06/10/18 06/10/18 12:45 12:45 18:15 WBC RBC Hgb Hct MCV MCH MCHC RDW Plt Count MPV Prelim Diff (Auto) Neut % (Auto) Lymph % (Auto) [place] % (Auto) Eos % (Auto) Baso % (Auto) Neut # (Auto) Lymph # (Auto) [place] # (Auto) Eos # (Auto) Baso # (Auto) WBC Differential Seg Neuts % (Manual) Band Neuts % (Manual) Lymphocytes % (Manual) Monocytes % (Manual) Abs Neuts (Manual) Differential Comment Platelet Estimate Platelet Morphology Sodium Potassium Chloride Carbon Dioxide Anion Gap BUN Creatinine Estimated GFR Random Glucose Lactic Acid Calcium Magnesium Total Bilirubin AST ALT Alkaline Phosphatase Total Creatine Kinase CK-MB (CK-2) CK-MB (CK-2) % Troponin I Total Protein Albumin Vitamin B12 TSH Cancelled Urine Color Yellow Urine Clarity Hazy H Urine pH 5.0 Ur Specific [place] 1.015 Urine Protein 100 H Urine Glucose (UA) Negative Urine Ketones Negative Urine Occult Blood Moderate H Urine Nitrate Negative Urine Bilirubin Negative Urine Urobilinogen 2.0 H Ur Leukocyte Esterase Trace H Urine RBC 18 H Urine WBC 31 H Urine Bacteria Rare H Micro UA Comment Cath-culture ind Ur Microscopic Review Not Reportable Urine Culture Comments Cath-cult indicated Nasal Screen MRSA (PCR) Not detected Random Vancomycin 06/10/18 06/11/18 06/11/18 22:04 02:20 02:20 WBC 7.0 RBC 2.77 L Hgb 8.7 L Hct 26.0 L MCV 93.9 MCH 31.4 MCHC 33.4 RDW 21.0 H Plt Count 209 MPV 10.1 Prelim Diff (Auto) Neut % (Auto) 73.4 H Lymph % (Auto) 11.6 [place] % (Auto) 14.2 H Eos % (Auto) 0.3 Baso % (Auto) 0.5 Neut # (Auto) 5.2 Lymph # (Auto) 0.8 L [place] # (Auto) 1.0 H Eos # (Auto) 0.0 Baso # (Auto) 0.0 WBC Differential . Seg Neuts % (Manual) Band Neuts % (Manual) Lymphocytes % (Manual) Monocytes % (Manual) Abs Neuts (Manual) Differential Comment Auto diff final Platelet Estimate Platelet Morphology Sodium 149 H Potassium 4.4 Chloride 116 H Carbon Dioxide 22.1 Anion Gap 11 BUN 32 H Creatinine 1.79 H Estimated GFR 37 L Random Glucose 114 H Lactic Acid Calcium 7.8 L D Magnesium 2.1 Total Bilirubin 0.5 AST 32 ALT 21 Alkaline Phosphatase 62 Total Creatine Kinase CK-MB (CK-2) CK-MB (CK-2) % Troponin I 1.15 H* Total Protein 6.6 D Albumin 2.6 L Vitamin B12 677 TSH Urine Color Urine Clarity Urine pH Ur Specific [place] Urine Protein Urine Glucose (UA) Urine Ketones Urine Occult Blood Urine Nitrate Urine Bilirubin Urine Urobilinogen Ur Leukocyte Esterase Urine RBC Urine WBC Urine Bacteria Micro UA Comment Ur Microscopic Review Urine Culture Comments Nasal Screen MRSA (PCR) Random Vancomycin 9.8 Microbiology 06/10/18 12:50 Blood - Peripheral Aerobic Blood Culture - Preliminary No growth in 1 day 06/10/18 12:50 Blood - Peripheral Anaerobic Blood Culture - Preliminary No growth in 1 day 06/10/18 12:45 Blood - Peripheral Aerobic Blood Culture - Preliminary No growth in 1 day 06/10/18 12:45 Blood - Peripheral Anaerobic Blood Culture - Preliminary No growth in 1 day - Imaging Impressions Carotid Doppler Study 06/10/18 00:00 CONCLUSION: 1. Moderate atherosclerotic plaquing at both carotid bifurcations. 2. No focal high-grade or hemodynamically significant stenosis. 3. The left vertebral artery was not visualized. Foot X-Ray 06/10/18 00:00 CONCLUSION: Chronic changes and no definite fracture for technique. Chest X-Ray 06/10/18 12:45 CONCLUSION: 1. Minimal bibasilar airspace disease, presumably atelectasis. Formal PA and lateral views of the chest may be obtained if there is continued clinical uncertainty. Head CT 06/10/18 13:20 CONCLUSION: Acute nonhemorrhagic infarction left MCA territory without any mass effect. Findings were discussed with Dr. Mccray at the time of this dictation on 06/10/2018 at 2:45 hours. Assessment and Plan - Assessment (1) Gangrene of right foot Code(s): I96 - Gangrene, not elsewhere classified Status: Acute Plan: Stable at this time. Consulted vascular in case patient able to move forward with any testing and/or intervention at some point. Nothing to do from podiatry standpoint at this time. Will plan to check weekly while in-house. Patient may follow up in my clinic after discharge.
--- NOTE | 2018-06-11 12:58 | MR ---
EXAM DATE: 06/11/2018 12:50 PM EST AGE/SEX: 78 years / Male INDICATIONS: CVA. CLINICAL DATA: This is the patient's initial encounter. Patient reports that signs and symptoms have been present for 1 day and indicates a pain score of 0/10. MEDICAL/SURGICAL HISTORY: Hypertension. Diabetes mellitus type II. Dementia. Non-responsive. CABG. COMPARISON: [facility] [place], CT HEAD W/O CONTRAST, 06/10/2018. . TECHNIQUE: Multiplanar, multisequence examination of the brain was performed without contrast. FINDINGS: There are extensive areas of abnormal diffusion involving left frontal, temporal, and parietal lobes with extension into left periventricular regions and basal ganglia. Similar type of finding is presen t in the right posterior parietal lobe parts of the right frontal lobe. There are additional scattere d areas of abnormal diffusion involving frontal lobes, bilateral occipital lobes and right cerebellar hemisphere. No definite hemorrhage is identified. CONCLUSION: 1. Extensive bilateral infarctions worse on the left without any significant mass effect or hemor rhage. Electronically signed by: Wilfredo Cisneros MD Board Certified Radiologist 06/11/2018 12:57 PM EST
--- NOTE | 2018-06-11 13:11 | MR ---
EXAM DATE: 06/11/2018 12:50 PM EST AGE/SEX: 78 years / Male INDICATIONS: CVA. CLINICAL DATA: This is the patient's initial encounter. Patient reports that signs and symptoms have been present for 1 day and indicates a pain score of 0/10. MEDICAL/SURGICAL HISTORY: Dementia. Hypertension. Diabetes mellitus type II. Non-responsive. CABG. COMPARISON: [facility] [place], MR HEAD W/O CONTRAST, 06/11/2018. . TECHNIQUE: 3D [id number] MRA was performed. Source images, multiplanar STS MIP, and 3D volum e MIP reconstructions were reviewed. FINDINGS: There is absent flow past the left M1 branch. 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 Significant area of stenosis involving multiple MCA bra nches on the right. CONCLUSION: 1. There is absent flow past the left M1 and possibility of acute thrombus at this site should be en tertained. 2. Extensive atherosclerotic disease bilaterally worse involving the right MCA branches with multipl e areas of high-grade stenosis. Electronically signed by: Wilfredo Cisneros MD Board Certified Radiologist 06/11/2018 1:10 PM EST
--- NOTE | 2018-06-11 14:20 | P.PNCA ---
Subjective Interval history: Nonverbal. Appears comfortable. Medications and Allergies Active Medications: Active Medications Acetaminophen (Tylenol) 650 mg PO Q6H PRN PRN Reason: PAIN 1-10 AND/OR FEVER >101F Al Hydroxide/Mg Hydroxide (Milk Of [place] Liq) 30 ml PO Q12H PRN PRN Reason: Mild Constipation Albuterol (Duoneb Neb (Prn)) 1 ampul NEB Q2HR NEB PRN PRN Reason: WHEEZING Albuterol (Duoneb Neb (Maria Luz)) 1 ampul NEB Q6HR NEB [facility] Last Admin: 06/11/18 09:22 Dose: 1 ampul Aspirin (Aspirin Chew) 81 mg PO DAILY [facility] Last Admin: 06/11/18 09:17 Dose: 81 mg Atorvastatin Calcium (Lipitor) 20 mg PO HS [facility] Last Admin: 06/10/18 20:37 Dose: 20 mg Bisacodyl (Dulcolax Supp) 10 mg RECTAL DAILY PRN PRN Reason: SEVERE CONSITIPATION Carvedilol (Coreg) 3.125 mg PO BID [facility] Last Admin: 06/11/18 08:00 Dose: 3.125 mg Chlorhexidine Gluconate (Chlorhexidine 2% Cloth) 3 pack TOPICAL DAILY@0400 [facility] Stop: 06/16/18 03:59 Chlorhexidine Gluconate (Chlorhexidine 2% Cloth) 3 pack TOPICAL DAILY@0400 PRN PRN Reason: Extra cloth needed Stop: 06/16/18 03:59 Divalproex Sodium (Depakote Dr) 250 mg PO TID [facility] Last Admin: 06/11/18 08:00 Dose: 250 mg Famotidine (Pepcid Pf Inj) 10 mg IV.PUSH Q12HR [facility] Last Admin: 06/11/18 08:00 Dose: 10 mg Heparin Sodium (Porcine) (Heparin Inj) 5,000 units SQ Q8H [facility] Last Admin: 06/11/18 07:57 Dose: 5,000 units Sodium Chloride (Ns Inj) 1,000 mls @ 84 mls/hr IV.CONT .[id number] [facility] Last Admin: 06/11/18 03:15 Dose: 84 mls/hr Piperacillin/Tazobactam/Dextrose (Zosyn 2.25 Gm Premix) 2.25 gm in 50 mls @ 100 mls/hr IV.SIG Q6H [facility] Last Admin: 06/11/18 11:43 Dose: 100 mls/hr Vancomycin HCl 1,000 mg/ (Sodium Chloride) 250 mls @ 250 mls/hr IV.SIG Q24H [facility] Lactulose (Lactulose Liq) 30 ml PO DAILY PRN PRN Reason: SEVERE CONSITIPATION Miscellaneous Information ([facility] Ordered Lab Info) 0 each OTHER ONCE ONE Stop: 06/13/18 15:46 Pharmacy Profile Note (Vancomycin Consult Pharmacy) 1 each OTHER UNSCH PRN PRN Reason: Pharmacy to dose Senna/Docusate Sodium (Danitza-Colace) 1 tab PO BID [facility] Last Admin: 06/11/18 08:00 Dose: 1 tab Sennosides (Senokot) 17.2 mg PO Q12H PRN PRN Reason: Moderate Constipation Sodium Chloride (Ns Flush) 2 ml IV.FLUSH BID [facility] Last Admin: 06/11/18 08:01 Dose: 2 ml Sodium Chloride (Ns Flush) 2 ml IV.FLUSH UNSCH PRN PRN Reason: FLUSH AFTER USING IV ACCESS Allergies Allergy/AdvReac Type Severity Reaction Status Date / Time No Known Allergies Allergy Verified 06/10/18 12:35 Home Medications Medication Instructions Recorded Confirmed Type albuterol sulfate 0.63 mg INHALATION Q4-6H PRN 06/10/18 06/10/18 History carvedilol 3.125 mg PO BID 06/10/18 06/10/18 History cholecalciferol (vitamin D3) 2,000 unit PO DAILY 06/10/18 06/10/18 History [Vitamin D3] collagenase clostridium histo. 1 applic TOPICAL DAILY 06/10/18 06/10/18 History [Santyl] dextromethorphan-guaifenesin 10 ml PO Q4-6H PRN 06/10/18 06/10/18 History [Robafen DM] divalproex 250 mg PO TID 06/10/18 06/10/18 History furosemide 30 mg PO DAILY 06/10/18 06/10/18 History insulin detemir U-100 [Levemir 20 unit SUBCUT QAM 06/10/18 06/10/18 History FlexTouch U-100 Insuln] liraglutide [Victoza 3-Jefferson] 0.6 mg SUBCUT DAILY 06/10/18 06/10/18 History lorazepam [Ativan] 0.5 mg PO TID 06/10/18 06/10/18 History melatonin 3 mg PO HS PRN 06/10/18 06/10/18 History memantine 10 mg PO BID 06/10/18 06/10/18 History metronidazole [Flagyl] 500 mg PO BID 06/10/18 06/10/18 History nut.tx.gluc.intol,lac-free,soy See Protocol PO BID 06/10/18 06/10/18 History [Glucerna Shake] pyridoxine (vitamin B6) [Vitamin 50 mg PO DAILY 06/10/18 06/10/18 History B-6] sulfamethoxazole-trimethoprim 1 tab PO BID 06/10/18 06/10/18 History [Bactrim DS] ziprasidone HCl 20 mg PO BID 06/10/18 06/10/18 History Physical Exam Vital signs: Vital Signs 06/10/18 15:41 06/10/18 16:33 06/10/18 17:18 Temperature Pulse Rate 66 68 Respiratory Rate 14 18 16 Blood Pressure 153/66 H Pulse Oximetry 99 06/10/18 17:42 06/10/18 17:43 06/10/18 18:00 Temperature 98.7 F Pulse Rate 93 H 97 H 100 H Respiratory Rate 23 16 23 Blood Pressure 145/66 H 157/71 H Pulse Oximetry 100 100 100 06/10/18 18:30 06/10/18 19:00 06/10/18 19:30 Temperature 98.8 F Pulse Rate 92 H 99 H 93 H Respiratory Rate 18 25 H 28 H Blood Pressure 138/65 143/71 H 151/71 H Pulse Oximetry 100 100 99 06/10/18 20:00 06/10/18 20:30 06/10/18 21:00 Temperature Pulse Rate 93 H 92 H 92 H Respiratory Rate 20 22 21 Blood Pressure 135/63 131/63 133/64 Pulse Oximetry 98 100 99 06/10/18 21:16 06/10/18 21:30 06/10/18 22:00 Temperature Pulse Rate 102 H 89 88 Respiratory Rate 20 21 20 Blood Pressure 123/57 L 129/68 Pulse Oximetry 99 100 98 06/10/18 22:30 06/10/18 23:00 06/10/18 23:30 Temperature Pulse Rate 95 H 99 H 93 H Respiratory Rate 22 22 23 Blood Pressure 127/81 115/67 114/58 L Pulse Oximetry 100 99 97 06/11/18 00:00 06/11/18 00:30 06/11/18 01:00 Temperature 98.4 F Pulse Rate 91 H 107 H 93 H Respiratory Rate 22 21 25 H Blood Pressure 112/63 135/60 134/56 L Pulse Oximetry 100 96 99 06/11/18 01:30 06/11/18 02:00 06/11/18 02:36 Temperature Pulse Rate 103 H 93 H 111 H Respiratory Rate 17 21 25 H Blood Pressure 126/58 L 126/60 127/65 Pulse Oximetry 98 100 95 06/11/18 03:00 06/11/18 03:30 06/11/18 03:40 Temperature Pulse Rate 97 H 106 H 103 H Respiratory Rate 22 21 20 Blood Pressure 146/67 H 129/62 Pulse Oximetry 100 98 06/11/18 04:00 06/11/18 04:30 06/11/18 05:00 Temperature 98.0 F Pulse Rate 110 H 117 H 102 H Respiratory Rate 21 20 22 Blood Pressure 129/63 120/70 132/64 Pulse Oximetry 100 99 99 06/11/18 05:30 06/11/18 06:00 06/11/18 06:30 Temperature Pulse Rate 118 H 108 H 107 H Respiratory Rate 21 23 18 Blood Pressure 129/73 137/63 123/64 Pulse Oximetry 99 79 L 100 06/11/18 07:00 06/11/18 07:30 06/11/18 08:00 Temperature 98.4 F Pulse Rate 95 H 98 H 91 H Respiratory Rate 23 17 20 Blood Pressure 122/56 L 128/64 113/72 Pulse Oximetry 85 L 100 100 06/11/18 08:30 06/11/18 09:00 06/11/18 09:22 Temperature Pulse Rate 75 99 H 95 H Respiratory Rate 25 H 23 20 Blood Pressure 133/59 L 123/75 Pulse Oximetry 98 99 97 06/11/18 09:31 06/11/18 10:00 06/11/18 10:30 Temperature Pulse Rate 84 102 H 85 Respiratory Rate 20 24 17 Blood Pressure 139/57 L 134/63 112/56 L Pulse Oximetry 100 99 100 06/11/18 11:00 06/11/18 11:30 06/11/18 12:00 Temperature 98.1 F Pulse Rate 99 H 98 H 98 H Respiratory Rate 22 19 18 Blood Pressure 119/67 136/63 125/58 L Pulse Oximetry 99 100 99 06/11/18 13:16 Temperature Pulse Rate 88 Respiratory Rate 24 Blood Pressure Pulse Oximetry Intake & Output 06/10/18 06/11/18 06/11/18 18:59 06:59 18:59 Intake Total 800 / 800 1220 / 1220 Balance 800 / 800 1220 / 1220 Weight 61 kg 60.5 kg Intake: IV 800 / 800 1100 / 1100 NS Inj 1,000 ML @ 84 mls/hr IV. 1000 / 1000 CONT .[id number] [facility]IA [facility]Z Rx#:[id number] Zosyn 2.25 GM Premix 2.25 gm In 100 / 100 50 ml @ 100 mls/hr IV.SIG Q6H [facility] Rx#:[id number] Zosyn 3.375 GM Premix 3.375 gm 50 / 50 In 50 ml @ 100 mls/hr IV.SIG ONCE ONE Rx#:[id number] NS Inj 500 ML @ 1000 mls/hr IV. 500 / 500 SIG BOLUS [facility] Rx#:[id number] Vancomycin Inj 1,000 MG In NS 250 / 250 Inj 250 ML @ 250 mls/hr IV.SIG ONCE ONE Rx#:[id number] Water Bolus Amount 120 / 120 Other: # Voids 5 Weight On Admission 61 kg - Constitutional no acute distress - Routine Neck Exam Absent: JVD - Routine Respiratory Exam Present: CTA bilaterally - Routine Cardiovascular Exam Present: S1, S2, irregular rhythm. Absent: murmur, gallop - Routine Abdominal Exam Present: soft, normoactive bowel sounds. Absent: organomegaly - Routine Extremities Exam Absent: cyanosis, clubbing, edema Results 06/11/18 02:20 06/11/18 02:20 Cardiac Enzymes 06/10/18 06/10/18 06/11/18 Range/Units 12:45 22:04 02:20 AST 32 32 (15-37) U/L CK-MB (CK-2) 4.0 H (0.5-3.6) ng/mL Troponin I 1.17 H* 1.15 H* (0.02-0.05) ng/mL CBC 06/10/18 06/11/18 Range/Units 12:45 02:20 WBC 9.0 7.0 (4.0-11.0) th/mm3 RBC 3.05 L 2.77 L (4.50-5.90) mil/mm3 Hgb 9.5 L 8.7 L (13.0-17.0) gm/dL Hct 28.9 L 26.0 L (39.0-51.0) % Plt Count 250 209 (150-450) th/mm3 Neut # (Auto) 7.1 5.2 (1.8-7.7) th/mm3 Lymph # (Auto) 0.7 L 0.8 L (1.0-4.8) th/mm3 Delta # (Auto) 1.2 H 1.0 H (0.0-0.9) th/mm3 Eos # (Auto) 0.0 0.0 (0.0-0.4) th/mm3 Baso # (Auto) 0.1 0.0 (0.0-0.2) th/mm3 Comprehensive Metabolic Panel 06/10/18 06/11/18 Range/Units 12:45 02:20 Sodium 147 H 149 H (136-145) meq/L Potassium 4.5 4.4 (3.5-5.1) meq/L Chloride 110 H 116 H (98-107) meq/L Carbon Dioxide 28.3 22.1 (21.0-32.0) meq/L BUN 33 H 32 H (7-18) mg/dL Creatinine 2.21 H 1.79 H (0.60-1.30) mg/dL Calcium 8.7 7.8 L D (8.5-10.1) mg/dL AST 32 32 (15-37) U/L ALT 22 21 (12-78) U/L Alkaline Phosphatase 73 62 (45-117) U/L Total Protein 7.7 6.6 D (6.4-8.2) g/dL Albumin 3.1 L 2.6 L (3.4-5.0) g/dL Intake and Output 06/10/18 06/11/18 06/11/18 22:59 06:59 14:59 Intake Total 300 / 300 1220 / 1220 Balance 300 / 300 1220 / 1220 Intake: IV 300 / 300 1100 / 1100 NS Inj 1,000 ML @ 84 mls/hr IV. 1000 / 1000 CONT .[id number] [facility] Rx#:[id number] Zosyn 2.25 GM Premix 2.25 gm In 100 / 100 50 ml @ 100 mls/hr IV.SIG Q6H [facility] Rx#:[id number] Zosyn 3.375 GM Premix 3.375 gm 50 / 50 In 50 ml @ 100 mls/hr IV.SIG ONCE ONE Rx#:[id number] Vancomycin Inj 1,000 MG In NS 250 / 250 Inj 250 ML @ 250 mls/hr IV.SIG ONCE ONE Rx#:[id number] Water Bolus Amount 120 / 120 Other: # Voids 5 Weight 61 kg 60.5 kg Weight On Admission 61 kg - Imaging and Cardiology Imaging: Impressions Carotid Doppler Study 06/10/18 00:00 CONCLUSION: 1. Moderate atherosclerotic plaquing at both carotid bifurcations. 2. No focal high-grade or hemodynamically significant stenosis. 3. The left vertebral artery was not visualized. Foot X-Ray 06/10/18 00:00 CONCLUSION: Chronic changes and no definite fracture for technique. Chest X-Ray 06/10/18 12:45 CONCLUSION: 1. Minimal bibasilar airspace disease, presumably atelectasis. Formal PA and lateral views of the chest may be obtained if there is continued clinical uncertainty. Head CT 06/10/18 13:20 CONCLUSION: Acute nonhemorrhagic infarction left MCA territory without any mass effect. Findings were discussed with Dr. Mccray at the time of this dictation on 06/10/2018 at 2:45 hours. Head MRI 06/11/18 00:00 CONCLUSION: 1. Extensive bilateral infarctions worse on the left without any significant mass effect or hemorrhage. Head MRA 06/11/18 00:00 CONCLUSION: 1. There is absent flow past the left M1 and possibility of acute thrombus at this site should be entertained. 2. Extensive atherosclerotic disease bilaterally worse involving the right MCA branches with multiple areas of high-grade stenosis. Assessment and Plan - Assessment (1) Elevated troponin Code(s): R74.8 - Abnormal levels of other serum enzymes Status: Acute Plan: Cardiac status stable. Troponin level remains flat, mildly elevated, in the setting of renal insufficiency. Overall doubt ACS. No definite CHF. Extensive bilateral infarctions on brain MRI. Patient not candidate for aggressive cardiac evaluation. Recommend continue carvedilol, aspirin. Will f /u as needed. - Plan Code Status: full code
--- NOTE | 2018-06-11 14:26 | MB ---
cc: Shamar Ragsdale MD DATE: 06/11/2018 REASON FOR CONSULTATION: Stroke and peripheral vascular disease. HISTORY OF PRESENT ILLNESS: This 78-year-old gentleman is a shelter resident and presented to the hospital with altered mental status and diagnosed with acute left middle cerebral artery stroke. In the process of workup, the patient was found to have gangrene of the right hallux and fifth toe and questionable vascular supply and any possible implications for the same. PAST MEDICAL AND SURGICAL HISTORY: Taken off the chart. The patient clearly cannot answer any questions. I know this from chart that the patient has chronic renal insufficiency, hypertension, dementia and several TIAs in the past. FAMILY HISTORY: Unknown. MEDICATIONS: Can be found in the record. SOCIAL HISTORY: The patient is a shelter resident. PHYSICAL EXAMINATION: GENERAL: Reveals a 78-year-old gentleman, who is lying in ICU bed, not answering any questions being completely aphasic. HEENT: Normocephalic. No trauma to the head. Pupils are equal and reactive. Extraocular muscles cannot be tested. The patient has a right-sided gaze. NECK: Bilateral carotid pulses. I do not hear any bruits. CHEST: Bilateral breath sounds, decreased over both lung pro. There is atrophy of the chest wall musculature and the patient has a significant functional decline. HEART: Regular rhythm. ABDOMEN: Soft, patulous thin. Active bowel sounds. No rebound, no masses. No guarding. EXTREMITIES: The patient does have palpable femoral pulses and very weak, popliteal pulses by Doppler. He has dorsalis pedis palpable, posterior tibial by Doppler. He does have a gangrenous first and fifth toe of the right foot. This is dry gangrene and clearly at this point does not need any debridement or a surgical approach. RECOMMENDATIONS: I reviewed laboratory and diagnostic procedures. This gentleman is in functional decline. 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 His Allyson coma scale is about 7-8. At this point, the patient is not a candidate for any surgical procedure and in my opinion, hospice should be consulted for terminal care of this unfortunate gentleman. I thank you very much for the referral. Shamar Ragsdale MD SJ/ct , 02:07 PM , 02:13 PM
--- NOTE | 2018-06-11 14:29 | ECG ---
Date Performed: 06/10/2018 Time Performed: 18:56:26 PTAGE: 78 years EKG: SINUS TACHYCARDIA WITH FREQUENT SUPRAVENTRICULAR PREMATURE COMPLEXES LOW QRS VOLTAGE IN PRE CORDIAL LEADS ST DEVIATION AND MODERATE T-WAVE ABNORMALITY, CONSIDER ANTERIOR ISCHEMIA ABNORMAL ECG S med PREVIOUS TRACING , no significant change noted PREVIOUS TRACIN06/10/2018 13.20 DOCTOR: Josue Barragan Interpretating Date/Time 06/11/2018 14:28:48
--- NOTE | 2018-06-11 14:29 | ECG ---
Date Performed: 06/10/2018 Time Performed: 13:20:50 PTAGE: 78 years EKG: Baseline artifact Sinus rhythm with occasional PAC's Diffuse nonspecific ST-T wave change May be small inferior Q waves of undeterm ined significance NO PREVIOUS TRACING DOCTOR: Josue Barragan Interpretating Date/Time 06/11/2018 14:28:19
--- NOTE | 2018-06-11 15:15 | ECHRPT ---
Indication: CVA/TIA CONCLUSIONS Normal left ventricular size. Mild concentric left ventricular hypertrophy. The left ventricular systolic function is normal with an estimated ejection fraction in the range of 60-65%. Mild mitral valve regurgitation. Mitral annular calcification is present. Aortic valve sclerosis is present. There is trace tricuspid valve regurgitation. The estimated pulmonary arterial pressure is 35 mmHg. BP: / HR: Rhythm: MEASUREMENTS (Male / Female) Normal Values Technical Quality:Fair 2D ECHO LV Diastolic Diameter PLAX 4.2 cm 4.2 - 5.9 / 3.9 - 5.3 cm LV Systolic Diameter PLAX 3.0 cm IVS Diastolic Thickness 1.0 cm 0.6 - 1.0 / 0.6 - 0.9 cm LVPW Diastolic Thickness 1.1 cm 0.6 - 1.0 / 0.6 - 0.9 cm LV Relative Wall Thickness 0.5 RV Internal Dim ED PLAX 2.6 cm LVOT Diameter 1.7 cm Aortic Root Diameter 2.7 cm LA Systolic Diameter LX 3.7 cm 3.0 - 4.0 / 2.7 - 3.8 cm DOPPLER AV Peak Velocity 167.0 cm/s AV Peak Gradient 11.2 mmHg LVOT Peak Velocity 85.9 cm/s LVOT Peak Gradient 3.0 mmHg AV Area Cont Eq pk 1.2 cm Mitral E Point Velocity 102.0 cm/s Mitral A Point Velocity 118.0 cm/s Mitral E to A Ratio 0.9 LV E' Lateral Velocity 8.9 cm/s Mitral E to LV E' Lateral Ratio 11.5 LV E' Septal Velocity 6.1 cm/s Mitral E to LV E' Septal Ratio 16.6 TR Peak Velocity 251.0 cm/s TR Peak Gradient 25.2 mmHg Right Atrial Pressure 10.0 mmHg Pulmonary Artery Systolic Pressu 35.2 mmHg Right Ventricular Systolic Press 35.2 mmHg PV Peak Velocity 128.0 cm/s PV Peak Gradient 6.6 mmHg FINDINGS LEFT VENTRICLE Normal left ventricular size. Mild concentric left ventricular hypertrophy. The left ventricular systolic function is normal with an estimated ejection fraction in the range of 60-65%. Doppler parameters are consistent with impaired left ventricular relaxtion (grade 1 diastolic dysfun ction). RIGHT VENTRICLE Normal right ventricular size and systolic function. LEFT ATRIUM The left atrial size is normal. RIGHT ATRIUM The right atrial size is normal. ATRIAL SEPTUM Normal atrial septal thickness without atrial level shunting by limited color doppler interrogation. AORTA The aortic root and proximal ascending aorta are normal in size on limited imaging. MITRAL VALVE Mild mitral valve regurgitation. Mitral annular calcification is present. AORTIC VALVE Trileaflet aortic valve. Aortic valve sclerosis is present. TRICUSPID VALVE There is trace tricuspid valve regurgitation. The estimated pulmonary arterial pressure is 35 mmHg. PULMONARY VALVE The pulmonary valve is not well visualized. VESSELS The inferior vena cava is normal in size. PERICARDIUM No pericardial effusion. Bernabe Craig MD (Electronically Signed) Final Date:11 June 2018 15:15
[2018-06-11] MEDS: Vancomycin Inj 1,000 MG in Sodium Chlor 0.9% Inj 250 ML IV.SIG SCH (15:23)
--- NOTE | 2018-06-11 15:31 | P.PNCC ---
Subjective Subjective Remarks/Hospital Course: 06/11: Noted right gaze deviation this a.m. neurologist Dr. Marcus mcelroy. MRI brain obtained revealed extensive bilateral infarct. Cardiology following patient was noted not to be candidate for aggressive cardiac evaluation secondary to the extensive bilateral brain infarcts. Vascular surgery was consulted regarding discoloration right great toe no plans for surgical intervention noted dry gangrene. Tube feedings initiated. Objective Vital Signs / I&O: Vital Signs 06/10/18 15:41 06/10/18 16:33 06/10/18 17:18 Temperature Pulse Rate 66 68 Respiratory Rate 14 18 16 Blood Pressure 153/66 H Pulse Oximetry 99 06/10/18 17:42 06/10/18 17:43 06/10/18 18:00 Temperature 98.7 F Pulse Rate 93 H 97 H 100 H Respiratory Rate 23 16 23 Blood Pressure 145/66 H 157/71 H Pulse Oximetry 100 100 100 06/10/18 18:30 06/10/18 19:00 06/10/18 19:30 Temperature 98.8 F Pulse Rate 92 H 99 H 93 H Respiratory Rate 18 25 H 28 H Blood Pressure 138/65 143/71 H 151/71 H Pulse Oximetry 100 100 99 06/10/18 20:00 06/10/18 20:30 06/10/18 21:00 Temperature Pulse Rate 93 H 92 H 92 H Respiratory Rate 20 22 21 Blood Pressure 135/63 131/63 133/64 Pulse Oximetry 98 100 99 06/10/18 21:16 06/10/18 21:30 06/10/18 22:00 Temperature Pulse Rate 102 H 89 88 Respiratory Rate 20 21 20 Blood Pressure 123/57 L 129/68 Pulse Oximetry 99 100 98 06/10/18 22:30 06/10/18 23:00 06/10/18 23:30 Temperature Pulse Rate 95 H 99 H 93 H Respiratory Rate 22 22 23 Blood Pressure 127/81 115/67 114/58 L Pulse Oximetry 100 99 97 06/11/18 00:00 06/11/18 00:30 06/11/18 01:00 Temperature 98.4 F Pulse Rate 91 H 107 H 93 H Respiratory Rate 22 21 25 H Blood Pressure 112/63 135/60 134/56 L Pulse Oximetry 100 96 99 06/11/18 01:30 06/11/18 02:00 06/11/18 02:36 Temperature Pulse Rate 103 H 93 H 111 H Respiratory Rate 17 21 25 H Blood Pressure 126/58 L 126/60 127/65 Pulse Oximetry 98 100 95 06/11/18 03:00 06/11/18 03:30 06/11/18 03:40 Temperature Pulse Rate 97 H 106 H 103 H Respiratory Rate 22 21 20 Blood Pressure 146/67 H 129/62 Pulse Oximetry 100 98 06/11/18 04:00 06/11/18 04:30 06/11/18 05:00 Temperature 98.0 F Pulse Rate 110 H 117 H 102 H Respiratory Rate 21 20 22 Blood Pressure 129/63 120/70 132/64 Pulse Oximetry 100 99 99 06/11/18 05:30 06/11/18 06:00 06/11/18 06:30 Temperature Pulse Rate 118 H 108 H 107 H Respiratory Rate 21 23 18 Blood Pressure 129/73 137/63 123/64 Pulse Oximetry 99 79 L 100 06/11/18 07:00 06/11/18 07:30 06/11/18 08:00 Temperature 98.4 F Pulse Rate 95 H 98 H 91 H Respiratory Rate 23 17 20 Blood Pressure 122/56 L 128/64 113/72 Pulse Oximetry 85 L 100 100 06/11/18 08:30 06/11/18 09:00 06/11/18 09:22 Temperature Pulse Rate 75 99 H 95 H Respiratory Rate 25 H 23 20 Blood Pressure 133/59 L 123/75 Pulse Oximetry 98 99 97 06/11/18 09:31 06/11/18 10:00 06/11/18 10:30 Temperature Pulse Rate 84 102 H 85 Respiratory Rate 20 24 17 Blood Pressure 139/57 L 134/63 112/56 L Pulse Oximetry 100 99 100 06/11/18 11:00 06/11/18 11:30 06/11/18 12:00 Temperature 98.1 F Pulse Rate 99 H 98 H 98 H Respiratory Rate 22 19 18 Blood Pressure 119/67 136/63 125/58 L Pulse Oximetry 99 100 99 06/11/18 13:16 06/11/18 14:00 06/11/18 15:03 Temperature Pulse Rate 88 114 H 103 H Respiratory Rate 24 18 20 Blood Pressure Pulse Oximetry Intake & Output 06/10/18 06/11/18 06/11/18 18:59 06:59 18:59 Intake Total 800 / 800 1220 / 1220 1050 / 1050 Balance 800 / 800 1220 / 1220 1050 / 1050 Weight 61 kg 60.5 kg Intake: IV 800 / 800 1100 / 1100 1050 / 1050 NS Inj 1,000 ML @ 84 mls/hr IV. 1000 / 1000 1000 / 1000 CONT .[id number] [facility] Rx#:[id number] Zosyn 2.25 GM Premix 2.25 gm In 100 / 100 50 / 50 50 ml @ 100 mls/hr IV.SIG Q6H [facility] Rx#:[id number] Zosyn 3.375 GM Premix 3.375 gm 50 / 50 In 50 ml @ 100 mls/hr IV.SIG ONCE ONE Rx#:[id number] NS Inj 500 ML @ 1000 mls/hr IV. 500 / 500 SIG BOLUS [facility] Rx#:[id number] Vancomycin Inj 1,000 MG In NS 250 / 250 Inj 250 ML @ 250 mls/hr IV.SIG ONCE ONE Rx#:[id number] Water Bolus Amount 120 / 120 Other: # Voids 5 Weight On Admission 61 kg Result Diagrams: 06/11/18 02:20 06/11/18 02:20 Other Results: Laboratory Results WBC 7.0 th/mm3 (4.0-11.0) 06/11/18 02:20 RBC 2.77 mil/mm3 (4.50-5.90) L 06/11/18 02:20 Hgb 8.7 gm/dL (13.0-17.0) L 06/11/18 02:20 Hct 26.0 % (39.0-51.0) L 06/11/18 02:20 MCV 93.9 fL (80.0-100.0) 06/11/18 02:20 MCH 31.4 pg (27.0-34.0) 06/11/18 02:20 MCHC 33.4 % (32.0-36.0) 06/11/18 02:20 RDW 21.0 % (11.6-17.2) H 06/11/18 02:20 Plt Count 209 th/mm3 (150-450) 06/11/18 02:20 MPV 10.1 fL (7.0-11.0) 06/11/18 02:20 Prelim Diff (Auto) Slide review pending 06/10/18 12:45 Neut % (Auto) 73.4 % (16.0-70.0) H 06/11/18 02:20 Lymph % (Auto) 11.6 % (9.0-44.0) 06/11/18 02:20 [place] % (Auto) 14.2 % (0.0-8.0) H 06/11/18 02:20 Eos % (Auto) 0.3 % (0.0-4.0) 06/11/18 02:20 Baso % (Auto) 0.5 % (0.0-2.0) 06/11/18 02:20 Neut # (Auto) 5.2 th/mm3 (1.8-7.7) 06/11/18 02:20 Lymph # (Auto) 0.8 th/mm3 (1.0-4.8) L 06/11/18 02:20 [place] # (Auto) 1.0 th/mm3 (0.0-0.9) H 06/11/18 02:20 Eos # (Auto) 0.0 th/mm3 (0.0-0.4) 06/11/18 02:20 Baso # (Auto) 0.0 th/mm3 (0.0-0.2) 06/11/18 02:20 WBC Differential . 06/11/18 02:20 Seg Neuts % (Manual) 61 % (16-70) 06/10/18 12:45 Band Neuts % (Manual) 14 % (0-6) H 06/10/18 12:45 Lymphocytes % (Manual) 6 % (9-44) L 06/10/18 12:45 Monocytes % (Manual) 19 % (0-8) H 06/10/18 12:45 Abs Neuts (Manual) 6.8 th/mm3 (1.8-7.7) 06/10/18 12:45 Differential Comment Auto diff final 06/11/18 02:20 Platelet Estimate Normal (Normal) 06/10/18 12:45 Platelet Morphology Enlarged (Normal) H 06/10/18 12:45 Sodium 149 meq/L (136-145) H 06/11/18 02:20 Potassium 4.4 meq/L (3.5-5.1) 06/11/18 02:20 Chloride 116 meq/L (98-107) H 06/11/18 02:20 Carbon Dioxide 22.1 meq/L (21.0-32.0) 06/11/18 02:20 Anion Gap 11 meq/L (5-15) 06/11/18 02:20 BUN 32 mg/dL (7-18) H 06/11/18 02:20 Creatinine 1.79 mg/dL (0.60-1.30) H 06/11/18 02:20 Estimated GFR 37 mL/min (>89) L 06/11/18 02:20 Random Glucose 114 mg/dL (74-106) H 06/11/18 02:20 Lactic Acid 2.0 mmol/L (0.4-2.0) 06/10/18 12:45 Calcium 7.8 mg/dL (8.5-10.1) L D 06/11/18 02:20 Magnesium 2.1 mg/dL (1.5-2.5) 06/11/18 02:20 Total Bilirubin 0.5 mg/dL (0.2-1.0) 06/11/18 02:20 AST 32 U/L (15-37) 06/11/18 02:20 ALT 21 U/L (12-78) 06/11/18 02:20 Alkaline Phosphatase 62 U/L (45-117) 06/11/18 02:20 Total Creatine Kinase 489 U/L (39-308) H 06/10/18 12:45 CK-MB (CK-2) 4.0 ng/mL (0.5-3.6) H 06/10/18 12:45 CK-MB (CK-2) % 0.8 % (0.0-4.0) 06/10/18 12:45 Troponin I 1.15 ng/mL (0.02-0.05) H* 06/10/18 22:04 Total Protein 6.6 g/dL (6.4-8.2) D 06/11/18 02:20 Albumin 2.6 g/dL (3.4-5.0) L 06/11/18 02:20 Vitamin B12 677 pg/mL (193-986) 06/10/18 22:04 TSH 1.570 uIU/mL (0.358-3.740) 06/10/18 12:45 Urine Color Yellow (Yellw/Straw) 06/10/18 12:45 Urine Clarity Hazy (Clear) H 06/10/18 12:45 Urine pH 5.0 (5.0-8.5) 06/10/18 12:45 Ur Specific [place] 1.015 (1.002-1.035) 06/10/18 12:45 Urine Protein 100 mg/dL (Neg-Trace) H 06/10/18 12:45 Urine Glucose (UA) Negative mg/dL (Negative) 06/10/18 12:45 Urine Ketones Negative mg/dL (Negative) 06/10/18 12:45 Urine Occult Blood Moderate (Negative) H 06/10/18 12:45 Urine Nitrate Negative (Negative) 06/10/18 12:45 Urine Bilirubin Negative (Negative) 06/10/18 12:45 Urine Urobilinogen 2.0 mg/dL (Less than 2) H 06/10/18 12:45 Ur Leukocyte Esterase Trace (Negative) H 06/10/18 12:45 Urine RBC 18 /hpf (0-3) H 06/10/18 12:45 Urine WBC 31 /hpf (0-5) H 06/10/18 12:45 Urine Bacteria Rare /hpf (None) H 06/10/18 12:45 Micro UA Comment Cath-culture ind 06/10/18 12:45 Ur Microscopic Review Not Reportable 06/10/18 12:45 Urine Culture Comments Cath-cult indicated 06/10/18 12:45 Nasal Screen MRSA (PCR) Not detected (Negative) 06/10/18 18:15 Random Vancomycin 9.8 Comment 06/11/18 02:20 Impressions Carotid Doppler Study 06/10/18 00:00 CONCLUSION: 1. Moderate atherosclerotic plaquing at both carotid bifurcations. 2. No focal high-grade or hemodynamically significant stenosis. 3. The left vertebral artery was not visualized. Foot X-Ray 06/10/18 00:00 CONCLUSION: Chronic changes and no definite fracture for technique. Chest X-Ray 06/10/18 12:45 CONCLUSION: 1. Minimal bibasilar airspace disease, presumably atelectasis. Formal PA and lateral views of the chest may be obtained if there is continued clinical uncertainty. Head CT 06/10/18 13:20 CONCLUSION: Acute nonhemorrhagic infarction left MCA territory without any mass effect. Findings were discussed with Dr. Mccray at the time of this dictation on 06/10/2018 at 2:45 hours. Head MRI 06/11/18 00:00 CONCLUSION: 1. Extensive bilateral infarctions worse on the left without any significant mass effect or hemorrhage. Head MRA 06/11/18 00:00 CONCLUSION: 1. There is absent flow past the left M1 and possibility of acute thrombus at this site should be entertained. 2. Extensive atherosclerotic disease bilaterally worse involving the right MCA branches with multiple areas of high-grade stenosis. Objective Remarks: GENERAL: This is a well-developed well-nourished a phasic gentleman of stated age SKIN: Warm and dry. HEAD: Atraumatic. Normocephalic. EYES: Pupils equal and round. No scleral icterus. No injection or drainage. ENT: No nasal bleeding or discharge. Mucous membranes pink and moist. NECK: Trachea midline. No JVD. CARDIOVASCULAR: Normal rate, regular rhythm. RESPIRATORY: No accessory muscle use. Clear to auscultation. Breath sounds equal bilaterally. GASTROINTESTINAL: Abdomen soft, non-tender, nondistended. No guarding. MUSCULOSKELETAL: Extremities without clubbing or edema. Noted gangrene right great and fifth toe with discoloration NEUROLOGICAL: Awake, aphasic. RASS 0. Right gaze deviation. Rigidity right upper extremity. Spontaneous movement of bilateral lower extremities. Does not follow commands. Assessment and Plan - Problem List (1) Acute ischemic left MCA stroke Code(s): I63.512 - Cerebral infarction due to unspecified occlusion or stenosis of left middle cerebral artery Status: Acute (2) Acute encephalopathy Code(s): G93.40 - Encephalopathy, unspecified Status: Acute (3) Sepsis Code(s): A41.9 - Sepsis, unspecified organism Status: Acute (4) Non-ST elevation SC (NSTEMI) Code(s): I21.4 - Non-ST elevation (NSTEMI) myocardial infarction Status: Acute (5) UTI (urinary tract infection) Code(s): N39.0 - Urinary tract infection, site not specified Status: Acute (6) Gangrene of right foot Code(s): I96 - Gangrene, not elsewhere classified Status: Acute (7) Cellulitis of right foot Code(s): L03.115 - Cellulitis of right lower limb Status: Acute (8) Altered mental status Code(s): R41.82 - Altered mental status, unspecified Status: Acute (9) Chronic kidney disease Code(s): N18.9 - Chronic kidney disease, unspecified Status: Chronic (10) TIA (transient ischemic attack) Code(s): G45.9 - Transient cerebral ischemic attack, unspecified Status: Chronic (11) Type 2 diabetes mellitus Code(s): E11.9 - Type 2 diabetes mellitus without complications Status: Chronic (12) Hypertension Code(s): I10 - Essential (primary) hypertension Status: Chronic (13) Dementia Code(s): F03.90 - Unspecified dementia without behavioral disturbance Status: Chronic - Assessment and Plan Plan: NEURO: Acute left MCA stroke Acute metabolic encephalopathy History of TIA Dementia -CT shows acute stroke involving left MCA territory -06/11 MRI brain extensive bilateral infarcts -Not a TPA candidate unknown time of onset -Not a candidate for CT angiogram due to creatinine more than 2.2, and unknown time of onset -Aspirin 81 mg daily -Further workup with 2D echo, B12, TSH, carotid Doppler -Statins when p.o. permitted -PT OT, swallow eval RESP: Respiratory insufficiency -DuoNeb every 6 hours scheduled and as needed -Monitor closely for airway protection CV: Non-ST elevation SC Hypertension -Normal saline IV fluids 2 L bolus and 84 mL/h, -06/11 2d echo-EF 60-65%, grade 1 diastolic dysfunction -cardiology consulted-no plans for aggressive cardiac evaluation secondary to extensive bilateral brain infarct -Start aspirin 81 mg daily, Lipitor 20 mg daily -Not a candidate for IV anticoagulation due to acute stroke -Start low-dose beta-timothy Coreg 3.125 mg twice daily -Avoid systolic blood pressure less than 150 due to acute stroke however need control due to acute SC GI: -N.p.o. -Obtain swallow evaluation, IV famotidine -NG tube placement for medication administration : Acute on chronic kidney disease -Monitor renal function closely. Place Joseph catheter. -Previous creatinine unknown. -Careful hydration as above, if creatinine not improving will consult nephrology ID/MSK: Severe sepsis UTI Right foot gangrene and cellulitis -Antibiotics in the form of vancomycin and Zosyn, metronidazole -Blood urine and sputum cultures -Podiatry consult for left foot gangrene HEME: Anemia -Monitor CBC, coags -Check B12 ENDO: -Electrolyte replacement as needed -Sliding scale insulin, if needed PROPH: -Bilateral lower extremity SCDs. Heparin/famotidine LINES: -Utilize peripheral IVs, central line if needed Patient is very critical with poor prognosis. He has acute left MCA stroke, which now has progressed to bilateral extensive infarcts which is large in size complicated by acute on chronic renal failure non-ST elevation SC, sepsis, right foot gangrene, cellulitis, and UTI. He is overall prognosis is very poor and I have consulted palliative care. He needs close ICU monitoring for potential neurological and respiratory decompensation My billing statement This patient remains critically ill with one or more organ systems which are or may become a threat to life. I have spent in excess of 37 minutes discontinuously in the care and management of this patient. This time is exclusive of procedures, and includes, but is not limited to, evaluation of the patient, review of the medical record, discussions with family, consultants, nursing staff, or respiratory therapy, and documentation in the medical record. Code Status: Full Discussed Condition With: NET MANAGER at bedside (5) UTI (urinary tract infection) Qualifiers: Urinary tract infection type: site unspecified Hematuria presence: without hematuria Qualified Code(s): N39.0 - Urinary tract infection, site not specified (8) Altered mental status Qualifiers: Altered mental status type: unspecified Qualified Code(s): R41.82 - Altered mental status, unspecified
[2018-06-12] MEDS: Piperacil/Tazo 2.25 GM Premix 2.25 GM/50 ML PIGGYBACK IV.SIG SCH ×4 (04:05→22:44)
[2018-06-12 05:09] LABS: Baso # (Auto) 0.1 th/mm3 (0.0-0.2); Baso % (Auto) 1.2 % (0.0-2.0); Eos # (Auto) 0.1 th/mm3 (0.0-0.4); Eos % (Auto) 1.8 % (0.0-4.0); Hemoglobin 9.1 gm/dL (13.0-17.0); Lymph # (Auto) 0.9 th/mm3 (1.0-4.8); Lymph % (Auto) 17.7 % (9.0-44.0); Mean Corpuscular HGB Conc 32.5 % (32.0-36.0); Mean Corpuscular Hemoglobin 30.8 pg (27.0-34.0); Mean Platelet Volume 10.1 fL (7.0-11.0); Mono # (Auto) 0.9 th/mm3 (0.0-0.9); Mono % (Auto) 17.4 % (0.0-8.0); Neut # (Auto) 3.1 th/mm3 (1.8-7.7); Neut % (Auto) 61.9 % (16.0-70.0); Platelet Count 224 th/mm3 (150-450); Red Blood Count 2.94 mil/mm3 (4.50-5.90); Red Cell Distribution Width 21.5 % (11.6-17.2)
--- NOTE | 2018-06-12 05:22 | P.PNVS ---
Subjective Subjective/Hospital Course: 06/12/2018 This 78-year-old gentleman is a long term resident and presented to the hospital with altered mental status and diagnosed with acute left middle cerebral artery stroke. In the process of workup, the patient was found to have gangrene of the right hallux and fifth toe and questionable vascular supply and any possible implications for the same. Patient is in severe functional decline consistent of multiorgan dysfunction including acute cerebral infarct, respiratory insufficiency, elevation of cardiac enzymes with cardiac dysfunction, renal insufficiency and decreased level of consciousness Patient is not a candidate for any further workup or aggressive therapy and his condition is terminal with being imminent Palliative care consult is recommended We will sign off from vascular point but will be available for any interventions Thanks J Objective Vital Signs / I&O: Vital Signs 06/11/18 05:30 06/11/18 06:00 06/11/18 06:30 Temperature Pulse Rate 118 H 108 H 107 H Respiratory Rate 21 23 18 Blood Pressure 129/73 137/63 123/64 Pulse Oximetry 99 79 L 100 06/11/18 07:00 06/11/18 07:30 06/11/18 08:00 Temperature 98.4 F Pulse Rate 95 H 98 H 91 H Respiratory Rate 23 17 20 Blood Pressure 122/56 L 128/64 113/72 Pulse Oximetry 85 L 100 100 06/11/18 08:30 06/11/18 09:00 06/11/18 09:22 Temperature Pulse Rate 75 99 H 95 H Respiratory Rate 25 H 23 20 Blood Pressure 133/59 L 123/75 Pulse Oximetry 98 99 97 06/11/18 09:31 06/11/18 10:00 06/11/18 10:30 Temperature Pulse Rate 84 102 H 85 Respiratory Rate 20 24 17 Blood Pressure 139/57 L 134/63 112/56 L Pulse Oximetry 100 99 100 06/11/18 11:00 06/11/18 11:30 06/11/18 12:00 Temperature 98.1 F Pulse Rate 99 H 98 H 98 H Respiratory Rate 22 19 18 Blood Pressure 119/67 136/63 125/58 L Pulse Oximetry 99 100 99 06/11/18 13:16 06/11/18 14:00 06/11/18 15:00 Temperature Pulse Rate 88 114 H 101 H Respiratory Rate 24 18 19 Blood Pressure Pulse Oximetry 100 06/11/18 15:03 06/11/18 16:00 06/11/18 16:04 Temperature Pulse Rate 103 H 107 H 99 H Respiratory Rate 20 16 17 Blood Pressure 127/58 L Pulse Oximetry 100 93 L 06/11/18 16:30 06/11/18 17:00 06/11/18 17:30 Temperature Pulse Rate 107 H 105 H 97 H Respiratory Rate 17 15 19 Blood Pressure 124/61 135/73 152/77 H Pulse Oximetry 97 100 100 06/11/18 18:00 06/11/18 18:30 06/11/18 19:00 Temperature Pulse Rate 109 H 109 H 101 H Respiratory Rate 15 17 19 Blood Pressure 120/67 125/69 123/60 Pulse Oximetry 99 99 96 06/11/18 19:30 06/11/18 20:00 06/11/18 20:01 Temperature 98.4 F Pulse Rate 110 H 102 H 108 H Respiratory Rate 20 21 20 Blood Pressure 147/60 H 135/63 Pulse Oximetry 97 95 98 06/11/18 20:30 06/11/18 21:00 06/11/18 21:30 Temperature Pulse Rate 103 H 100 H 98 H Respiratory Rate 21 21 24 Blood Pressure 135/58 L 129/59 L 127/60 Pulse Oximetry 96 97 93 L 06/11/18 22:00 06/11/18 22:30 06/11/18 23:00 Temperature Pulse Rate 108 H 95 H 97 H Respiratory Rate 21 27 H 24 Blood Pressure 124/57 L 121/63 130/60 Pulse Oximetry 92 L 93 L 95 06/11/18 23:30 06/12/18 00:00 06/12/18 00:30 Temperature 98.2 F Pulse Rate 104 H 101 H 109 H Respiratory Rate 23 23 19 Blood Pressure 126/73 121/68 99/54 L Pulse Oximetry 93 L 94 L 96 06/12/18 01:00 06/12/18 01:31 06/12/18 02:00 Temperature Pulse Rate 101 H 108 H 95 H Respiratory Rate 20 18 20 Blood Pressure 102/65 130/65 143/67 H Pulse Oximetry 97 99 99 06/12/18 02:31 06/12/18 03:00 06/12/18 03:30 Temperature Pulse Rate 100 H 102 H 97 H Respiratory Rate 17 14 21 Blood Pressure 121/62 137/72 162/68 H Pulse Oximetry 99 98 96 06/12/18 04:00 06/12/18 04:01 06/12/18 04:21 Temperature 97.9 F Pulse Rate 114 H 112 H 102 H Respiratory Rate 21 20 17 Blood Pressure 138/111 H Pulse Oximetry 92 L 97 06/12/18 04:30 Temperature Pulse Rate 95 H Respiratory Rate 23 Blood Pressure 135/65 Pulse Oximetry 93 L Intake & Output 06/11/18 06/11/18 06/12/18 06:59 18:59 06:59 Intake Total 1220 / 1220 1470 / 1470 246 / 246 Output Total 250 / 250 Balance 1220 / 1220 1220 / 1220 246 / 246 Weight 60.5 kg Intake: IV 1100 / 1100 1350 / 1350 NS Inj 1,000 ML @ 84 mls/hr IV. 1000 / 1000 1000 / 1000 CONT .[id number] [facility] Rx#:[id number] Zosyn 2.25 GM Premix 2.25 gm In 100 / 100 100 / 100 50 ml @ 100 mls/hr IV.SIG Q6H [facility] Rx#:[id number] Vancomycin Inj 1,000 MG In NS 250 / 250 Inj 250 ML @ 250 mls/hr IV.SIG Q24H [facility] Rx#:[id number] Tube Feeding 136 / 136 Water Bolus Amount 120 / 120 120 / 120 110 / 110 Output: Urine 250 / 250 Other: # Voids 5 5 3 Date of Last Bowel Movement 06/12/18 # Bowel Movements 1 Laboratory Results - last 24 hr 06/12/18 03:44 WBC 5.0 RBC 2.94 L Hgb 9.1 L Hct 28.0 L MCV 95.0 MCH 30.8 MCHC 32.5 RDW 21.5 H Plt Count 224 MPV 10.1 Neut % (Auto) 61.9 Lymph % (Auto) 17.7 [place] % (Auto) 17.4 H Eos % (Auto) 1.8 Baso % (Auto) 1.2 Neut # (Auto) 3.1 Lymph # (Auto) 0.9 L [place] # (Auto) 0.9 Eos # (Auto) 0.1 Baso # (Auto) 0.1 WBC Differential . Differential Comment Auto diff final Microbiology 06/10/18 12:45 Urine Culture - Preliminary Catheterized Urine No growth in 24 hours 06/10/18 12:50 Aerobic Blood Culture - Preliminary Blood - Peripheral No growth in 1 day Anaerobic Blood Culture - Preliminary No growth in 1 day 06/10/18 12:45 Aerobic Blood Culture - Preliminary Blood - Peripheral No growth in 1 day Anaerobic Blood Culture - Preliminary No growth in 1 day Impressions Carotid Doppler Study 06/10/18 00:00 CONCLUSION: 1. Moderate atherosclerotic plaquing at both carotid bifurcations. 2. No focal high-grade or hemodynamically significant stenosis. 3. The left vertebral artery was not visualized. Foot X-Ray 06/10/18 00:00 CONCLUSION: Chronic changes and no definite fracture for technique. Chest X-Ray 06/10/18 12:45 CONCLUSION: 1. Minimal bibasilar airspace disease, presumably atelectasis. Formal PA and lateral views of the chest may be obtained if there is continued clinical uncertainty. Head CT 06/10/18 13:20 CONCLUSION: Acute nonhemorrhagic infarction left MCA territory without any mass effect. Findings were discussed with Dr. Mccray at the time of this dictation on 06/10/2018 at 2:45 hours. Head MRI 06/11/18 00:00 CONCLUSION: 1. Extensive bilateral infarctions worse on the left without any significant mass effect or hemorrhage. Head MRA 06/11/18 00:00 CONCLUSION: 1. There is absent flow past the left M1 and possibility of acute thrombus at this site should be entertained. 2. Extensive atherosclerotic disease bilaterally worse involving the right MCA branches with multiple areas of high-grade stenosis.
[2018-06-12 05:32] LABS: Albumin 2.6 g/dL (3.4-5.0); Anion Gap 8 meq/L (5-15); Aspartate Aminotransferase 29 U/L (15-37); Blood Urea Nitrogen 28 mg/dL (7-18); Calcium 8.1 mg/dL (8.5-10.1); Chloride 117 meq/L (98-107); Glomerular Filtration Rate 39 mL/min (>89); Glucose,Random 137 mg/dL (74-106); Magnesium 2.1 mg/dL (1.5-2.5); Potassium 4.1 meq/L (3.5-5.1); Sodium 148 meq/L (136-145)
[2018-06-12 05:34] LABS: Alanine Aminotransferase 19 U/L (12-78)
[2018-06-12 05:37] LABS: Alkaline Phosphatase 57 U/L (45-117); Phosphorus 2.6 mg/dL (2.5-4.9); Total Protein 6.3 g/dL (6.4-8.2)
[2018-06-12] MEDS: Chlorhexidine Gluconate 2% 1 Pack (2 Cloths) TOPICAL SCH (06:05)
[2018-06-12] MEDS: Heparin - SQ 10,000 UNITS/ML Vial SQ SCH ×4 (06:06→23:18)
[2018-06-12] MEDS: Sod Chloride 0.9% Inj 1,000 ML IV.CONT SCH ×3 (06:06→16:49)
[2018-06-12] MEDS: Divalproex 250 MG DR Tablet PO SCH ×3 (08:37→17:20)
[2018-06-12] MEDS: Famotidine PF Inj 20 MG/2 ML Vial IV.PUSH SCH ×2 (08:38→21:45)
[2018-06-12] MEDS: Senna/Docusate Sodium 8.6/50 MG Tablet PO SCH ×2 (08:39→22:44)
--- NOTE | 2018-06-12 09:36 | P.PNNEU ---
Subjective Subjective Comments: no new events nonverbal Active Medications: Active Medications Acetaminophen (Tylenol) 650 mg PO Q6H PRN PRN Reason: PAIN 1-10 AND/OR FEVER >101F Al Hydroxide/Mg Hydroxide (Milk Of Darek [place]) 30 ml PO Q12H PRN PRN Reason: Mild Constipation Albuterol (Duoneb Neb (Prn)) 1 ampul NEB Q2HR NEB PRN PRN Reason: WHEEZING Albuterol (Duoneb Neb (Maria Luz)) 1 ampul NEB Q6HR NEB [facility] Last Admin: 06/12/18 08:16 Dose: 1 ampul Aspirin (Aspirin Chew) 81 mg PO DAILY [facility] Last Admin: 06/12/18 08:37 Dose: 81 mg Atorvastatin Calcium (Lipitor) 20 mg PO HS [facility] Last Admin: 06/11/18 20:45 Dose: 20 mg Bisacodyl (Dulcolax Supp) 10 mg RECTAL DAILY PRN PRN Reason: SEVERE CONSITIPATION Carvedilol (Coreg) 3.125 mg PO BID [facility] Last Admin: 06/12/18 08:37 Dose: 3.125 mg Chlorhexidine Gluconate (Chlorhexidine 2% Cloth) 3 pack TOPICAL DAILY@0400 [facility] Stop: 06/16/18 03:59 Last Admin: 06/12/18 06:05 Dose: Not Given Chlorhexidine Gluconate (Chlorhexidine 2% Cloth) 3 pack TOPICAL DAILY@0400 PRN PRN Reason: Extra cloth needed Stop: 06/16/18 03:59 Divalproex Sodium (Depakote Dr) 250 mg PO TID [facility] Last Admin: 06/12/18 08:37 Dose: 250 mg Famotidine (Pepcid Pf Inj) 10 mg IV.PUSH Q12HR [facility] Last Admin: 06/12/18 08:38 Dose: 10 mg Heparin Sodium (Porcine) (Heparin Inj) 5,000 units SQ Q8H [facility] Last Admin: 06/12/18 08:37 Dose: 5,000 units Sodium Chloride (Ns Inj) 1,000 mls @ 84 mls/hr IV.CONT .[id number] [facility] Last Admin: 06/12/18 06:16 Dose: 84 mls/hr Piperacillin/Tazobactam/Dextrose (Zosyn 2.25 Gm Premix) 2.25 gm in 50 mls @ 100 mls/hr IV.SIG Q6H [facility] Last Infusion: 06/12/18 04:35 Dose: Infused Vancomycin HCl 1,000 mg/ (Sodium Chloride) 250 mls @ 250 mls/hr IV.SIG Q24H [facility] Last Infusion: 06/11/18 17:57 Dose: Infused Lactulose (Lactulose Liq) 30 ml PO DAILY PRN PRN Reason: SEVERE CONSITIPATION Miscellaneous Information ([facility] Ordered Lab Info) 0 each OTHER ONCE ONE Stop: 06/13/18 15:46 Pharmacy Profile Note (Vancomycin Consult Pharmacy) 1 each OTHER UNSCH PRN PRN Reason: Pharmacy to dose Senna/Docusate Sodium (Danitza-Colace) 1 tab PO BID [facility] Last Admin: 06/12/18 08:39 Dose: Not Given Sennosides (Senokot) 17.2 mg PO Q12H PRN PRN Reason: Moderate Constipation Sodium Chloride (Ns Flush) 2 ml IV.FLUSH BID [facility] Last Admin: 06/12/18 08:38 Dose: 2 ml Sodium Chloride (Ns Flush) 2 ml IV.FLUSH UNSCH PRN PRN Reason: FLUSH AFTER USING IV ACCESS Allergies/Adverse Reactions: Allergies Allergy/AdvReac Type Severity Reaction Status Date / Time No Known Allergies Allergy Verified 06/10/18 12:35 Physical Exam Vital signs: Vital Signs 06/11/18 10:00 06/11/18 10:30 06/11/18 11:00 Temperature Pulse Rate 102 H 85 99 H Respiratory Rate 24 17 22 Blood Pressure 134/63 112/56 L 119/67 Pulse Oximetry 99 100 99 06/11/18 11:30 06/11/18 12:00 06/11/18 13:16 Temperature 98.1 F Pulse Rate 98 H 98 H 88 Respiratory Rate 19 18 24 Blood Pressure 136/63 125/58 L Pulse Oximetry 100 99 06/11/18 14:00 06/11/18 15:00 06/11/18 15:03 Temperature Pulse Rate 114 H 101 H 103 H Respiratory Rate 18 19 20 Blood Pressure Pulse Oximetry 100 06/11/18 16:00 06/11/18 16:04 06/11/18 16:30 Temperature Pulse Rate 107 H 99 H 107 H Respiratory Rate 16 17 17 Blood Pressure 127/58 L 124/61 Pulse Oximetry 100 93 L 97 06/11/18 17:00 01/05/19 17:30 06/11/18 18:00 Temperature Pulse Rate 105 H 97 H 109 H Respiratory Rate 15 19 15 Blood Pressure 135/73 152/77 H 120/67 Pulse Oximetry 100 100 99 06/11/18 18:30 06/11/18 19:00 06/11/18 19:30 Temperature 98.4 F Pulse Rate 109 H 101 H 110 H Respiratory Rate 17 19 20 Blood Pressure 125/69 123/60 147/60 H Pulse Oximetry 99 96 97 06/11/18 20:00 06/11/18 20:01 06/11/18 20:30 Temperature Pulse Rate 102 H 108 H 103 H Respiratory Rate 21 20 21 Blood Pressure 135/63 135/58 L Pulse Oximetry 95 98 96 06/11/18 21:00 06/11/18 21:30 06/11/18 22:00 Temperature Pulse Rate 100 H 98 H 108 H Respiratory Rate 21 24 21 Blood Pressure 129/59 L 127/60 124/57 L Pulse Oximetry 97 93 L 92 L 06/11/18 22:30 06/11/18 23:00 06/11/18 23:30 Temperature Pulse Rate 95 H 97 H 104 H Respiratory Rate 27 H 24 23 Blood Pressure 121/63 130/60 126/73 Pulse Oximetry 93 L 95 93 L 06/12/18 00:00 06/12/18 00:30 06/12/18 01:00 Temperature 98.2 F Pulse Rate 101 H 109 H 101 H Respiratory Rate 23 19 20 Blood Pressure 121/68 99/54 L 102/65 Pulse Oximetry 94 L 96 97 06/12/18 01:31 06/12/18 02:00 06/12/18 02:31 Temperature Pulse Rate 108 H 101 H 100 H Respiratory Rate 18 20 17 Blood Pressure 130/65 143/67 H 121/62 Pulse Oximetry 99 99 99 06/12/18 03:00 06/12/18 03:30 06/12/18 04:00 Temperature 97.9 F Pulse Rate 102 H 97 H 102 H Respiratory Rate 14 21 21 Blood Pressure 137/72 162/68 H Pulse Oximetry 98 96 92 L 06/12/18 04:01 06/12/18 04:21 06/12/18 04:30 Temperature Pulse Rate 112 H 102 H 95 H Respiratory Rate 20 17 23 Blood Pressure 138/111 H 135/65 Pulse Oximetry 97 93 L 06/12/18 05:00 06/12/18 05:30 06/12/18 06:00 Temperature Pulse Rate 108 H 97 H 98 H Respiratory Rate 19 17 18 Blood Pressure 133/63 140/78 120/60 Pulse Oximetry 97 100 99 06/12/18 06:30 06/12/18 07:00 06/12/18 07:30 Temperature Pulse Rate 101 H 100 H 108 H Respiratory Rate 15 12 20 Blood Pressure 118/69 135/74 137/72 Pulse Oximetry 99 99 100 06/12/18 08:00 06/12/18 08:15 06/12/18 08:30 Temperature 98.6 F Pulse Rate 99 H 96 H 108 H Respiratory Rate 17 22 18 Blood Pressure 147/90 H 146/70 H Pulse Oximetry 98 97 99 06/12/18 09:00 Temperature Pulse Rate 100 H Respiratory Rate 19 Blood Pressure 149/65 H Pulse Oximetry 98 Intake & Output 06/11/18 06/12/18 06/12/18 18:59 06:59 18:59 Intake Total 1470 / 1470 1346 / 1346 Output Total 250 / 250 Balance 1220 / 1220 1346 / 1346 Weight 60.5 kg Intake: IV 1350 / 1350 1100 / 1100 NS Inj 1,000 ML @ 84 mls/hr IV. 1000 / 1000 1000 / 1000 CONT .[id number] [facility] Rx#:[id number] Zosyn 2.25 GM Premix 2.25 gm In 100 / 100 100 / 100 50 ml @ 100 mls/hr IV.SIG Q6H [facility] Rx#:[id number] Vancomycin Inj 1,000 MG In NS 250 / 250 Inj 250 ML @ 250 mls/hr IV.SIG Q24H [facility] Rx#:[id number] Tube Feeding 136 / 136 Water Bolus Amount 120 / 120 110 / 110 Output: Urine 250 / 250 Other: # Voids 5 3 Date of Last Bowel Movement 06/12/18 06/12/18 # Bowel Movements 1 - Constitutional no acute distress - Routine HEENT Exam Head: Present: normocephalic - Routine Neurological Exam Present: motor deficit, altered mental status, facial asymmetry opens eyes does not track right gaze better does not follow w/d top pain - Detailed Neurological Exam: Coma Scale Eye Opening: Spontaneous Verbal Response: None Motor Response: Localizing [place] Coma Scale Total: 10 Objective Radiology Results: mri c/w b/l hemispheric infarcts left >right mra cow absent flow left m1 ats dz worse right cus ats dz Laboratory Results - last 24 hr 06/12/18 06/12/18 03:44 03:44 WBC 5.0 RBC 2.94 L Hgb 9.1 L Hct 28.0 L MCV 95.0 MCH 30.8 MCHC 32.5 RDW 21.5 H Plt Count 224 MPV 10.1 Neut % (Auto) 61.9 Lymph % (Auto) 17.7 [place] % (Auto) 17.4 H Eos % (Auto) 1.8 Baso % (Auto) 1.2 Neut # (Auto) 3.1 Lymph # (Auto) 0.9 L [place] # (Auto) 0.9 Eos # (Auto) 0.1 Baso # (Auto) 0.1 WBC Differential . Differential Comment Auto diff final Sodium 148 H Potassium 4.1 Chloride 117 H Carbon Dioxide 23.0 Anion Gap 8 BUN 28 H Creatinine 1.72 H Estimated GFR 39 L Random Glucose 137 H Calcium 8.1 L Phosphorus 2.6 Magnesium 2.1 Total Bilirubin 0.5 AST 29 ALT 19 Alkaline Phosphatase 57 Total Protein 6.3 L Albumin 2.6 L Microbiology 06/10/18 12:45 Urine Culture - Preliminary Catheterized Urine No growth in 24 hours 06/10/18 12:50 Aerobic Blood Culture - Preliminary Blood - Peripheral No growth in 1 day Anaerobic Blood Culture - Preliminary No growth in 1 day 06/10/18 12:45 Aerobic Blood Culture - Preliminary Blood - Peripheral No growth in 1 day Anaerobic Blood Culture - Preliminary No growth in 1 day Review/Management - Diagnosis (1) CVA (cerebral vascular accident) Code(s): I63.9 - Cerebral infarction, unspecified Status: Acute Current Visit: Yes - Review/Management Plan: asa qd ac higer risk of bleeding due to large stroke on the left sq heparin dvt prevention pt-ot-st likely will need feeding tube poor prognosis given his large strokes.
--- NOTE | 2018-06-12 11:22 | P.DIET ---
Nutritional Evaluation Type of nutrition evaluation: initial Nutrition consult regarding: Tube Feeding Objective - Diagnosis Sepsis, stroke, dementia - Objective % IBW: 80 (IBW: 166lbs) Energy Needs - Lower Range (kCal/kg): 28 Energy Needs - Upper Range (kCal/kg): 33 Lower Limit kCal/kg (kCals): 1,694 Upper Limit kCal/kg (kCals): 1,997 Lower Limit Protein Factor (Grams per Kg): 1 Upper Limit Protein Factor (Grams per Kg): 1.3 Lower Protein Needs (Protein): 61 Upper Protein Needs (Protein): 79 Fluid Factor (ml/kg): 30 Estimated Fluid Needs (ml): 1,815 Dietitian Reviewed in Medical Record: Current diet, Curent medications, Intake & Output, Labs, Medical history Diet Order: NPO Objective Comments: Labs: Cr 1.72 (down from 2.21, glu 137, Na 148 +BM Assessment Assessment: Pt at high nutritional risk r/t current clinical status. Pt s/p large strokes, noted very poor prognosis per MD reports, palliative care consult pending. TF Jevity 1.5 has been started. Pt's nutritional needs as assessed above. To meet his needs, a goal rate of 50ml/hr will be necessary. This will provide 1800kcals , 77gms protein and 912mls free water. Will monitor TF tolerance, clinical course. Recommendations: TF Jevity 1.5 with goal rate 50ml/hr
[2018-06-12] MEDS: Vancomycin Inj 1,000 MG in Sodium Chlor 0.9% Inj 250 ML IV.SIG SCH (15:27)
--- NOTE | 2018-06-12 16:44 | P.PNCC ---
Subjective Subjective Remarks/Hospital Course: 06/11: Noted right gaze deviation this a.m. neurologist Dr. Marcus mcelroy. MRI brain obtained revealed extensive bilateral infarct. Cardiology following patient was noted not to be candidate for aggressive cardiac evaluation secondary to the extensive bilateral brain infarcts. Vascular surgery was consulted regarding discoloration right great toe no plans for surgical intervention noted dry gangrene. Tube feedings initiated. 06/12: Afebrile .Noted left gaze deviation today. Withdraws to pain . No change in neurological status. Awaiting discussion with guardian and palliative care team as patient will require gastric feeding tube. Patient tolerating tube feeds. Objective Vital Signs / I&O: Vital Signs 06/11/18 17:00 06/11/18 17:30 06/11/18 18:00 Temperature Pulse Rate 105 H 97 H 109 H Respiratory Rate 15 19 15 Blood Pressure 135/73 152/77 H 120/67 Pulse Oximetry 100 100 99 06/11/18 18:30 06/11/18 19:00 06/11/18 19:30 Temperature 98.4 F Pulse Rate 109 H 101 H 110 H Respiratory Rate 17 19 20 Blood Pressure 125/69 123/60 147/60 H Pulse Oximetry 99 96 97 06/11/18 20:00 06/11/18 20:01 06/11/18 20:30 Temperature Pulse Rate 102 H 108 H 103 H Respiratory Rate 21 20 21 Blood Pressure 135/63 135/58 L Pulse Oximetry 95 98 96 06/11/18 21:00 06/11/18 21:30 06/11/18 22:00 Temperature Pulse Rate 100 H 98 H 108 H Respiratory Rate 21 24 21 Blood Pressure 129/59 L 127/60 124/57 L Pulse Oximetry 97 93 L 92 L 06/11/18 22:30 06/11/18 23:00 06/11/18 23:30 Temperature Pulse Rate 95 H 97 H 104 H Respiratory Rate 27 H 24 23 Blood Pressure 121/63 130/60 126/73 Pulse Oximetry 93 L 95 93 L 06/12/18 00:00 06/12/18 00:30 06/12/18 01:00 Temperature 98.2 F Pulse Rate 101 H 109 H 101 H Respiratory Rate 23 19 20 Blood Pressure 121/68 99/54 L 102/65 Pulse Oximetry 94 L 96 97 06/12/18 01:31 06/12/18 02:00 06/12/18 02:31 Temperature Pulse Rate 108 H 101 H 100 H Respiratory Rate 18 20 17 Blood Pressure 130/65 143/67 H 121/62 Pulse Oximetry 99 99 99 06/12/18 03:00 06/12/18 03:30 06/12/18 04:00 Temperature 97.9 F Pulse Rate 102 H 97 H 102 H Respiratory Rate 14 21 21 Blood Pressure 137/72 162/68 H Pulse Oximetry 98 96 92 L 06/12/18 04:01 06/12/18 04:21 06/12/18 04:30 Temperature Pulse Rate 112 H 102 H 95 H Respiratory Rate 20 17 23 Blood Pressure 138/111 H 135/65 Pulse Oximetry 97 93 L 06/12/18 05:00 06/12/18 05:30 06/12/18 06:00 Temperature Pulse Rate 108 H 97 H 98 H Respiratory Rate 19 17 18 Blood Pressure 133/63 140/78 120/60 Pulse Oximetry 97 100 99 06/12/18 06:30 06/12/18 07:00 06/12/18 07:30 Temperature Pulse Rate 101 H 100 H 108 H Respiratory Rate 15 12 20 Blood Pressure 118/69 135/74 137/72 Pulse Oximetry 99 99 100 06/12/18 08:00 06/12/18 08:15 06/12/18 08:30 Temperature 98.6 F Pulse Rate 99 H 96 H 108 H Respiratory Rate 17 22 18 Blood Pressure 147/90 H 146/70 H Pulse Oximetry 98 97 99 06/12/18 09:00 06/12/18 09:30 06/12/18 10:00 Temperature Pulse Rate 100 H 101 H 92 H Respiratory Rate 19 14 21 Blood Pressure 149/65 H 146/72 H 142/82 H Pulse Oximetry 98 98 98 06/12/18 10:30 06/12/18 11:00 06/12/18 11:30 Temperature Pulse Rate 100 H 96 H 101 H Respiratory Rate 22 22 21 Blood Pressure 145/65 H 113/66 123/66 Pulse Oximetry 98 92 L 06/12/18 12:00 06/12/18 12:30 06/12/18 13:00 Temperature 98.4 F Pulse Rate 106 H 100 H 106 H Respiratory Rate 21 22 18 Blood Pressure 136/71 137/66 146/76 H Pulse Oximetry 94 L 87 L 100 06/12/18 13:30 06/12/18 14:00 06/12/18 14:39 Temperature Pulse Rate 98 H 95 H 108 H Respiratory Rate 20 24 20 Blood Pressure 142/84 H 154/65 H Pulse Oximetry 100 100 Intake & Output 06/11/18 06/12/18 06/12/18 18:59 06:59 18:59 Intake Total 1470 / 1470 1346 / 1346 50 / 50 Output Total 250 / 250 Balance 1220 / 1220 1346 / 1346 50 / 50 Weight 60.5 kg Intake: IV 1350 / 1350 1100 / 1100 50 / 50 NS Inj 1,000 ML @ 84 mls/hr IV. 1000 / 1000 1000 / 1000 CONT .[id number] [facility] Rx#:[id number] Zosyn 2.25 GM Premix 2.25 gm In 100 / 100 100 / 100 50 / 50 50 ml @ 100 mls/hr IV.SIG Q6H [facility] Rx#:[id number] Vancomycin Inj 1,000 MG In NS 250 / 250 Inj 250 ML @ 250 mls/hr IV.SIG Q24H [facility] Rx#:[id number] Tube Feeding 136 / 136 Water Bolus Amount 120 / 120 110 / 110 Output: Urine 250 / 250 Other: # Voids 5 3 Date of Last Bowel Movement 06/12/18 06/12/18 # Bowel Movements 1 Result Diagrams: 06/12/18 03:44 06/12/18 03:44 Other Results: Laboratory Results WBC 5.0 th/mm3 (4.0-11.0) 06/12/18 03:44 RBC 2.94 mil/mm3 (4.50-5.90) L 06/12/18 03:44 Hgb 9.1 gm/dL (13.0-17.0) L 06/12/18 03:44 Hct 28.0 % (39.0-51.0) L 06/12/18 03:44 MCV 95.0 fL (80.0-100.0) 06/12/18 03:44 MCH 30.8 pg (27.0-34.0) 06/12/18 03:44 MCHC 32.5 % (32.0-36.0) 06/12/18 03:44 RDW 21.5 % (11.6-17.2) H 06/12/18 03:44 Plt Count 224 th/mm3 (150-450) 06/12/18 03:44 MPV 10.1 fL (7.0-11.0) 06/12/18 03:44 Prelim Diff (Auto) Slide review pending 06/10/18 12:45 Neut % (Auto) 61.9 % (16.0-70.0) 06/12/18 03:44 Lymph % (Auto) 17.7 % (9.0-44.0) 06/12/18 03:44 [place] % (Auto) 17.4 % (0.0-8.0) H 06/12/18 03:44 Eos % (Auto) 1.8 % (0.0-4.0) 06/12/18 03:44 Baso % (Auto) 1.2 % (0.0-2.0) 06/12/18 03:44 Neut # (Auto) 3.1 th/mm3 (1.8-7.7) 06/12/18 03:44 Lymph # (Auto) 0.9 th/mm3 (1.0-4.8) L 06/12/18 03:44 [place] # (Auto) 0.9 th/mm3 (0.0-0.9) 06/12/18 03:44 Eos # (Auto) 0.1 th/mm3 (0.0-0.4) 06/12/18 03:44 Baso # (Auto) 0.1 th/mm3 (0.0-0.2) 06/12/18 03:44 WBC Differential . 06/12/18 03:44 Seg Neuts % (Manual) 61 % (16-70) 06/10/18 12:45 Band Neuts % (Manual) 14 % (0-6) H 06/10/18 12:45 Lymphocytes % (Manual) 6 % (9-44) L 06/10/18 12:45 Monocytes % (Manual) 19 % (0-8) H 06/10/18 12:45 Abs Neuts (Manual) 6.8 th/mm3 (1.8-7.7) 06/10/18 12:45 Differential Comment Auto diff final 06/12/18 03:44 Platelet Estimate Normal (Normal) 06/10/18 12:45 Platelet Morphology Enlarged (Normal) H 06/10/18 12:45 Sodium 148 meq/L (136-145) H 06/12/18 03:44 Potassium 4.1 meq/L (3.5-5.1) 06/12/18 03:44 Chloride 117 meq/L (98-107) H 06/12/18 03:44 Carbon Dioxide 23.0 meq/L (21.0-32.0) 06/12/18 03:44 Anion Gap 8 meq/L (5-15) 06/12/18 03:44 BUN 28 mg/dL (7-18) H 06/12/18 03:44 Creatinine 1.72 mg/dL (0.60-1.30) H 06/12/18 03:44 Estimated GFR 39 mL/min (>89) L 06/12/18 03:44 Random Glucose 137 mg/dL (74-106) H 06/12/18 03:44 Lactic Acid 2.0 mmol/L (0.4-2.0) 06/10/18 12:45 Calcium 8.1 mg/dL (8.5-10.1) L 06/12/18 03:44 Phosphorus 2.6 mg/dL (2.5-4.9) 06/12/18 03:44 Magnesium 2.1 mg/dL (1.5-2.5) 06/12/18 03:44 Total Bilirubin 0.5 mg/dL (0.2-1.0) 06/12/18 03:44 AST 29 U/L (15-37) 06/12/18 03:44 ALT 19 U/L (12-78) 06/12/18 03:44 Alkaline Phosphatase 57 U/L (45-117) 06/12/18 03:44 Total Creatine Kinase 489 U/L (39-308) H 06/10/18 12:45 CK-MB (CK-2) 4.0 ng/mL (0.5-3.6) H 06/10/18 12:45 CK-MB (CK-2) % 0.8 % (0.0-4.0) 06/10/18 12:45 Troponin I 1.15 ng/mL (0.02-0.05) H* 06/10/18 22:04 Total Protein 6.3 g/dL (6.4-8.2) L 06/12/18 03:44 Albumin 2.6 g/dL (3.4-5.0) L 06/12/18 03:44 Vitamin B12 677 pg/mL (193-986) 06/10/18 22:04 TSH 1.570 uIU/mL (0.358-3.740) 06/10/18 12:45 Urine Color Yellow (Yellw/Straw) 06/10/18 12:45 Urine Clarity Hazy (Clear) H 06/10/18 12:45 Urine pH 5.0 (5.0-8.5) 06/10/18 12:45 Ur Specific [place] 1.015 (1.002-1.035) 06/10/18 12:45 Urine Protein 100 mg/dL (Neg-Trace) H 06/10/18 12:45 Urine Glucose (UA) Negative mg/dL (Negative) 06/10/18 12:45 Urine Ketones Negative mg/dL (Negative) 06/10/18 12:45 Urine Occult Blood Moderate (Negative) H 06/10/18 12:45 Urine Nitrate Negative (Negative) 06/10/18 12:45 Urine Bilirubin Negative (Negative) 06/10/18 12:45 Urine Urobilinogen 2.0 mg/dL (Less than 2) H 06/10/18 12:45 Ur Leukocyte Esterase Trace (Negative) H 06/10/18 12:45 Urine RBC 18 /hpf (0-3) H 06/10/18 12:45 Urine WBC 31 /hpf (0-5) H 06/10/18 12:45 Urine Bacteria Rare /hpf (None) H 06/10/18 12:45 Micro UA Comment Cath-culture ind 06/10/18 12:45 Ur Microscopic Review Not Reportable 06/10/18 12:45 Urine Culture Comments Cath-cult indicated 06/10/18 12:45 Nasal Screen MRSA (PCR) Not detected (Negative) 06/10/18 18:15 Random Vancomycin 9.8 Comment 06/11/18 02:20 Impressions Carotid Doppler Study 06/10/18 00:00 CONCLUSION: 1. Moderate atherosclerotic plaquing at both carotid bifurcations. 2. No focal high-grade or hemodynamically significant stenosis. 3. The left vertebral artery was not visualized. Foot X-Ray 06/10/18 00:00 CONCLUSION: Chronic changes and no definite fracture for technique. Chest X-Ray 06/10/18 12:45 CONCLUSION: 1. Minimal bibasilar airspace disease, presumably atelectasis. Formal PA and lateral views of the chest may be obtained if there is continued clinical uncertainty. Head CT 06/10/18 13:20 CONCLUSION: Acute nonhemorrhagic infarction left MCA territory without any mass effect. Findings were discussed with Dr. Mccray at the time of this dictation on 06/10/2018 at 2:45 hours. Head MRI 06/11/18 00:00 CONCLUSION: 1. Extensive bilateral infarctions worse on the left without any significant mass effect or hemorrhage. Head MRA 06/11/18 00:00 CONCLUSION: 1. There is absent flow past the left M1 and possibility of acute thrombus at this site should be entertained. 2. Extensive atherosclerotic disease bilaterally worse involving the right MCA branches with multiple areas of high-grade stenosis. Objective Remarks: GENERAL: This is a well-developed well-nourished a phasic gentleman of stated age non-responsive SKIN: Warm and dry. HEAD: Atraumatic. Normocephalic. EYES: PERRLA. No scleral icterus. No injection or drainage. ENT: No nasal bleeding or discharge. Mucous membranes pink and moist. NECK: Trachea midline. No JVD. CARDIOVASCULAR: Normal rate, regular rhythm. RESPIRATORY: No accessory muscle use. Clear to auscultation. Breath sounds equal bilaterally. GASTROINTESTINAL: Abdomen soft, non-tender, nondistended. No guarding. MUSCULOSKELETAL: Extremities without clubbing or edema. Noted gangrene right great and fifth toe with discoloration NEUROLOGICAL: Awake, aphasic. RASS 0. Left gaze deviation. Rigidity right upper extremity. Spontaneous movement of bilateral lower extremities. Does not follow commands. Withdraws to pain. Assessment and Plan - Problem List (1) Acute ischemic left MCA stroke Code(s): I63.512 - Cerebral infarction due to unspecified occlusion or stenosis of left middle cerebral artery Status: Acute (2) Acute encephalopathy Code(s): G93.40 - Encephalopathy, unspecified Status: Acute (3) Sepsis Code(s): A41.9 - Sepsis, unspecified organism Status: Acute (4) Non-ST elevation NV (NSTEMI) Code(s): I21.4 - Non-ST elevation (NSTEMI) myocardial infarction Status: Acute (5) UTI (urinary tract infection) Code(s): N39.0 - Urinary tract infection, site not specified Status: Acute (6) Gangrene of right foot Code(s): I96 - Gangrene, not elsewhere classified Status: Acute (7) Cellulitis of right foot Code(s): L03.115 - Cellulitis of right lower limb Status: Acute (8) Altered mental status Code(s): R41.82 - Altered mental status, unspecified Status: Acute (9) Chronic kidney disease Code(s): N18.9 - Chronic kidney disease, unspecified Status: Chronic (10) TIA (transient ischemic attack) Code(s): G45.9 - Transient cerebral ischemic attack, unspecified Status: Chronic (11) Type 2 diabetes mellitus Code(s): E11.9 - Type 2 diabetes mellitus without complications Status: Chronic (12) Hypertension Code(s): I10 - Essential (primary) hypertension Status: Chronic (13) Dementia Code(s): F03.90 - Unspecified dementia without behavioral disturbance Status: Chronic - Assessment and Plan Plan: NEURO: Acute left MCA stroke Acute metabolic encephalopathy History of TIA Dementia -CT shows acute stroke involving left MCA territory -06/11 MRI brain extensive bilateral infarcts -Not a TPA candidate unknown time of onset -Not a candidate for CT angiogram due to creatinine more than 2.2, and unknown time of onset -Aspirin 81 mg daily -Further workup with 2D echo, B12, TSH, carotid Doppler -Statins when p.o. permitted -PT OT, swallow evalpending RESP: Respiratory insufficiency -DuoNeb every 6 hours scheduled and as needed -Monitor closely for airway protection CV: Non-ST elevation NV Hypertension -Normal saline IV fluids 2 L bolus and 84 mL/h, -06/11 2d echo-EF 60-65%, grade 1 diastolic dysfunction -cardiology consulted-no plans for aggressive cardiac evaluation secondary to extensive bilateral brain infarct -Start aspirin 81 mg daily, Lipitor 20 mg daily -Not a candidate for IV anticoagulation due to acute stroke -Start low-dose beta-timothy Coreg 3.125 mg twice daily -Avoid systolic blood pressure less than 150 due to acute stroke however need control due to acute NV GI: -N.p.o. -Obtain swallow evaluation, IV famotidine -NG tube placement for medication administration -Patient will probably require PEG tube placement : Acute on chronic kidney disease -Monitor renal function closely. Joseph catheter continue. -Previous creatinine unknown. -Careful hydration as above, if creatinine not improving will consult nephrology -Noted continued improvement of creatinine ID/MSK: Severe sepsis UTI Right foot gangrene and cellulitis -Antibiotics in the form of vancomycin and Zosyn, metronidazole -Blood urine and sputum cultures -Podiatry consult for left foot gangrene HEME: Anemia -Monitor CBC, coags -Check B12 ENDO: -Electrolyte replacement as needed -Sliding scale insulin, if needed PROPH: -Bilateral lower extremity SCDs. Heparin/famotidine LINES: -Utilize peripheral IVs, central line if needed Patient is very critical with poor prognosis. He has acute left MCA stroke, which now has progressed to bilateral extensive infarcts which is large in size complicated by acute on chronic renal failure non-ST elevation NV, sepsis, right foot gangrene, cellulitis, and UTI. He is overall prognosis is very poor and I have consulted palliative care. He needs close ICU monitoring for potential neurological and respiratory decompensation Level 3 follow-up Code Status: Full Discussed Condition With: Discussed with [employer] at bedside (5) UTI (urinary tract infection) Qualifiers: Urinary tract infection type: site unspecified Hematuria presence: without hematuria Qualified Code(s): N39.0 - Urinary tract infection, site not specified (8) Altered mental status Qualifiers: Altered mental status type: unspecified Qualified Code(s): R41.82 - Altered mental status, unspecified
[2018-06-12] MEDS ORDERED: Labetalol HCl Inj 100 MG/20 ML Vial IV.PUSH PRN (16:48)
[2018-06-13] MEDS: Sod Chloride 0.9% Inj 1,000 ML IV.CONT SCH ×2 (03:01→15:30)
[2018-06-13] MEDS: Piperacil/Tazo 2.25 GM Premix 2.25 GM/50 ML PIGGYBACK IV.SIG SCH ×3 (04:48→15:29)
[2018-06-13 06:46] LABS: Baso % (Auto) 0.6 % (0.0-2.0); Eos # (Auto) 0.1 th/mm3 (0.0-0.4); Eos % (Auto) 1.5 % (0.0-4.0); Hematocrit 29.4 % (39.0-51.0); Hemoglobin 9.5 gm/dL (13.0-17.0); Lymph % (Auto) 15.7 % (9.0-44.0); Mean Corpuscular HGB Conc 32.3 % (32.0-36.0); Mean Corpuscular Hemoglobin 31.1 pg (27.0-34.0); Mean Corpuscular Volume 96.3 fL (80.0-100.0); Mean Platelet Volume 10.2 fL (7.0-11.0); Mono # (Auto) 1.4 th/mm3 (0.0-0.9); Mono % (Auto) 21.8 % (0.0-8.0); Neut # (Auto) 3.9 th/mm3 (1.8-7.7); Neut % (Auto) 60.4 % (16.0-70.0); Platelet Count 231 th/mm3 (150-450); Red Blood Count 3.06 mil/mm3 (4.50-5.90); White Blood Count 6.5 th/mm3 (4.0-11.0)
[2018-06-13] MEDS: Chlorhexidine Gluconate 2% 1 Pack (2 Cloths) TOPICAL SCH ×2 (08:07→08:08)
[2018-06-13 08:17] LABS: Eosinophils 3 % (0-4); Lymphocytes 17 % (9-44); Monocytes 16 % (0-8)
[2018-06-13 08:18] LABS: Ovalocytes 1+; Platelet Estimate Normal (Normal)
--- NOTE | 2018-06-13 08:43 | MG ---
cc: Mariluz Velazquez MD EEG NUMBER: ROOM: 510. With photic stimulation only. Not alert, somnolent. Does not follow commands. MRI shows bilateral infarcts, left greater than right. MEDICATIONS: 1. Aspirin. 2. Depakote. 3. Coreg. 4. Zosyn. DESCRIPTION OF RECORD: Overall slowing of background predominantly of 2 Hz was seen bilaterally. Photic stimulation without any significant driving response. EKG cannot be interpreted due to artifact, but there is also myogenic artifact. No epileptiform features. The patient did not follow commands for the claims technician. IMPRESSION: Moderately severe slowing of the background consistent with encephalopathy, likely due to the patient's stroke, without any epileptiform features. Clinical correlation. Mariluz Velazquez MD DF/shawn , 08:21 AM , 08:26 AM
[2018-06-13] MEDS: Divalproex 250 MG DR Tablet PO SCH ×2 (10:13→15:29)
[2018-06-13] MEDS: Heparin - SQ 10,000 UNITS/ML Vial SQ SCH ×2 (10:14→15:33)
--- NOTE | 2018-06-13 10:14 | P.CONPAL ---
Consult Service: Palliative Care Requesting Physician: Mylene Saunders Reason for Consult: a. To assist with evaluation and management of symptoms including: dyspnea, pain b. To assist medical decision maker(s) with: better understanding of current medical conditions; weighing benefits/burdens of medical treatment options; making medical treatment decisions. Primary Care Provider: UNKNOWN History of Present Illness History of Present Illness: Mr. Chicas is a 78-year-old custodial resident with a history of dementia, previous CVA, gangrene of the right foot, cellulitis, hypertension, CKD and DM who presented to [facility] on 06/10/2018 via EMS for evaluation of altered mental status. The patient was seen at baseline (GCS of 14) the day before. The following morning (06/10/2018) the patient was nonverbal with a leftward gaze. He had a low-grade fever. Patient was being treated with topical Flagyl on his right foot that was infected as well as oral Bactrim. Additional diagnostic data: * Vital signs: Pulse 94, respirations 16, BP 137/72, oxygen saturation 100% on 2 L via nasal cannula, rectal temp 100.3 * WBC: 9.0, hemoglobin 9.5, hematocrit 28.9, platelets 250, neutrophils 78.9% * Sodium: 147, potassium 4.5, chloride 110, carbon dioxide 28.3, glucose 99, calcium 8.7, magnesium 2.4 * BUN: 33, creatinine 2.21, GFR 29 * Lactic acid: 2.0 * Total bilirubin: 0.4, AST 32, ALT 22, alkaline phosphatase 73 * Total creatine kinase: 49 * CK-MB: 4.0 * Troponin: 1.17 * Total protein: 7.7, albumin 3.1 * TSH: 1.570 * Urinalysis consistent with UTI; urine culture with no growth x 2 days * Blood culture: No growth in 2 days * CT of the head showed acute left MCA stroke. * EKG showing evidence of lateral ischemia. * Chest x-ray revealed minimal bibasilar airspace disease, presumably atelectasis. * Foot x-ray showed no definite fractures; no definite lytic or sclerotic lesions. Degenerative osteoarthritis was present. * US carotid Doppler revealed moderate atherosclerotic plaquing in both carotid bifurcations. No focal high-grade or hemodynamically significant stenosis. The left vertebral artery was not visualized. On exam, the patient was lethargic with leftward gaze and nonverbal. Patient withdraws left upper extremity; bilateral lower extremities and right upper extremity were flaccid. The patient received a 1L normal saline bolus x2 in the ED as well as IV antibiotics, Vancomycin and Zosyn. His stroke was discussed with Dr. Frederick, neurology. Given unknown duration of symptoms and overall prognosis, patient was not a candidate for any invasive procedures including angiogram. His is creatinine is elevated, and he was developing multiorgan failure. He also had right foot cellulitis and gangrene of right big toe and right fifth toe; his ballistician was made aware of his hospitalization. Palliative Care was consulted on 06/10/2018 to assist with symptom management and clarification of medical treatment goals. Patient is a resident at [facility]. Spoke to the director of conservation at [facility] who stated the patient had a court appointed guardian but did not have written advanced directives. Attempted to contact Tatum Vargas, court appointed guardian, at . Message left on Mrs. Vargas's voicemail with [facility] and Palliative Care contact information;awaiting return phone call. Goals remain aggressive pending conversations with patient's court appointed guardian. Dr. Saunders notified. MRI head showed extensive bilateral infarctions worse on the left without any significant mass-effect or hemorrhage. MRA head revealed absent blood flow past the left [place], possibility of acute thrombus should be entertained. There was extensive arthrosclerotic disease bilaterally worse involving the right MCA branches with multiple areas of high-grade stenosis. Dr. Johnson, cardiology, was consulted due to the patient's elevated troponin levels. Given patient's renal insufficiency and multiple comorbid conditions, recommendations were made for conservative management. Patient to remain on carvedilol and daily aspirin. Echocardiogram on 06/11/2018 showed normal left ventricular systolic function and an EF in the range of 60-65%. Cardiothoracic surgery, Dr. Sehn, evaluated this patient due to his severe peripheral vascular disease and stroke. Unfortunately, the patient is not a candidate for any surgical procedures because of his advanced age, poor performance status, complex medical history and overall poor prognosis. EEG this morning 06/13/2018 with moderately severe slowing in the background consistent with encephalopathy, likely due to the patient's stroke, without any epileptiform features. Patient's oxygen saturation is in the mid 90s on 2 L via nasal cannula. He is intermittently tachypneic with accessory muscle usage. Per nursing report, patient grimacing with care and repositioning. Palliative care met with the court appointed guardian, Tatum Vargas, in the patient room. Medical updated provided. Patient had an acute left MCA stroke which progressed to the intensive bilateral infarcts. Prognosis is exacerbated by acute on chronic renal failure, non-STEMI, sepsis, right foot gangrene, cellulitis and UTI. Patient is not a candidate for aggressive interventions. Hospice would be an appropriate option at this time. Patient's CODE STATUS was changed to NO CODE-DNR/DNI. The court appointed guardian discussed medical treatment goals with her supervisor cigarette making department as well as the patient's children. Requesting hospice services for comfort and dignity at end of life. Function/Cognitive Trajectory: Pending further conversations Review of Systems unobtainable due to mental status PMFSH - History History Provided By: Medical Record, Water Meter Reader / EMT - Medical History Medical History: Medical History (Last Reviewed 06/11/18 @ 11:40 by Rocio Vera) Anxiety CRD (chronic renal disease) Dementia Diabetes Hypertension Hypocalcemia Tourette disease Transient ischemic attack - Social History I have reviewed the patient's Social History: Yes - Tobacco History Smoking Status: Unknown if ever smoked - Alcohol History How Often Do You Have a Drink Containing Alcohol: Unable to Obtain - Substance Use History Substance History: Unable to Obtain - Travel History Recent Travel in the [place] Within the Last 8 Weeks: No Recent Travel Out of the Country Within the Last 8 Weeks: No - Immunization History Tetanus Immunization: Unable to Assess Medications and Allergies Active Medications: Active Medications Acetaminophen (Tylenol) 650 mg PO Q6H PRN PRN Reason: PAIN 1-10 AND/OR FEVER >101F Al Hydroxide/Mg Hydroxide (Milk Of Magnesia Liq) 30 ml PO Q12H PRN PRN Reason: Mild Constipation Albuterol (Duoneb Neb (Prn)) 1 ampul NEB Q2HR NEB PRN PRN Reason: WHEEZING Albuterol (Duoneb Neb (Maria Luz)) 1 ampul NEB Q6HR NEB MARIA LUZ Last Admin: 06/13/18 08:30 Dose: Not Given Aspirin (Aspirin Chew) 81 mg PO DAILY MARIA LU[facility] Last Admin: 06/12/18 08:37 Dose: 81 mg Atorvastatin Calcium (Lipitor) 20 mg PO HS [facility] Last Admin: 06/12/18 21:45 Dose: 20 mg Bisacodyl (Dulcolax Supp) 10 mg RECTAL DAILY PRN PRN Reason: SEVERE CONSITIPATION Carvedilol (Coreg) 3.125 mg PO BID [facility] Last Admin: 06/12/18 21:45 Dose: 3.125 mg Chlorhexidine Gluconate (Chlorhexidine 2% Cloth) 3 pack TOPICAL DAILY@0400 [facility] Stop: 06/16/18 03:59 Last Admin: 06/13/18 08:08 Dose: Not Given Chlorhexidine Gluconate (Chlorhexidine 2% Cloth) 3 pack TOPICAL DAILY@0400 PRN PRN Reason: Extra cloth needed Stop: 06/16/18 03:59 Divalproex Sodium (Depakote Dr) 250 mg PO TID [facility] Last Admin: 06/12/18 17:20 Dose: 250 mg Famotidine (Pepcid Pf Inj) 10 mg IV.PUSH Q12HR [facility] Last Admin: 06/12/18 21:45 Dose: 10 mg Heparin Sodium (Porcine) (Heparin Inj) 5,000 units SQ Q8H [facility] Last Admin: 06/12/18 23:18 Dose: 5,000 units Sodium Chloride (Ns Inj) 1,000 mls @ 84 mls/hr IV.CONT .[id number] [facility] Last Admin: 06/13/18 03:01 Dose: 84 mls/hr Piperacillin/Tazobactam/Dextrose (Zosyn 2.25 Gm Premix) 2.25 gm in 50 mls @ 100 mls/hr IV.SIG Q6H [facility] Last Infusion: 06/13/18 08:08 Dose: Infused Vancomycin HCl 1,000 mg/ (Sodium Chloride) 250 mls @ 250 mls/hr IV.SIG Q24H [facility] Last Infusion: 06/13/18 08:08 Dose: Infused Labetalol HCl (Trandate Inj) 10 mg IV.PUSH Q4H PRN PRN Reason: HYPERTENSION Lactulose (Lactulose Liq) 30 ml PO DAILY PRN PRN Reason: SEVERE CONSITIPATION Miscellaneous Information ([facility] [facility] Info) 0 each OTHER ONCE ONE Stop: 06/13/18 15:46 Pharmacy Profile Note (Vancomycin Consult Pharmacy) 1 each OTHER UNSCH PRN PRN Reason: Pharmacy to dose Senna/Docusate Sodium (Danitza-Colace) 1 tab PO BID [facility] Last Admin: 06/12/18 22:44 Dose: Not Given Sennosides (Senokot) 17.2 mg PO Q12H PRN PRN Reason: Moderate Constipation Sodium Chloride (Ns Flush) 2 ml IV.FLUSH BID [facility] Last Admin: 06/12/18 21:45 Dose: 2 ml Sodium Chloride (Ns Flush) 2 ml IV.FLUSH UNSCH PRN PRN Reason: FLUSH AFTER USING IV ACCESS Allergies Allergy/AdvReac Type Severity Reaction Status Date / Time No Known Allergies Allergy Verified 06/10/18 12:35 Home Medications Medication Instructions Recorded Confirmed Type albuterol sulfate 0.63 mg INHALATION Q4-6H PRN 06/10/18 06/10/18 History carvedilol 3.125 mg PO BID 06/10/18 06/10/18 History cholecalciferol (vitamin D3) 2,000 unit PO DAILY 06/10/18 06/10/18 History [Vitamin D3] collagenase clostridium histo. 1 applic TOPICAL DAILY 06/10/18 06/10/18 History [Santyl] dextromethorphan-guaifenesin 10 ml PO Q4-6H PRN 06/10/18 06/10/18 History [Robafen DM] divalproex 250 mg PO TID 06/10/18 06/10/18 History furosemide 30 mg PO DAILY 06/10/18 06/10/18 History insulin detemir U-100 [Levemir 20 unit SUBCUT QAM 06/10/18 06/10/18 History FlexTouch U-100 Insuln] liraglutide [Victoza 3-[place]] 0.6 mg SUBCUT DAILY 06/10/18 06/10/18 History lorazepam [Ativan] 0.5 mg PO TID 06/10/18 06/10/18 History melatonin 3 mg PO HS PRN 06/10/18 06/10/18 History memantine 10 mg PO BID 06/10/18 06/10/18 History metronidazole [Flagyl] 500 mg PO BID 06/10/18 06/10/18 History nut.tx.gluc.intol,lac-free,soy See Protocol PO BID 06/10/18 06/10/18 History [Glucerandrew Shake] pyridoxine (vitamin B6) [Vitamin 50 mg PO DAILY 06/10/18 06/10/18 History B-6] sulfamethoxazole-trimethoprim 1 tab PO BID 06/10/18 06/10/18 History [Bactrim DS] ziprasidone HCl 20 mg PO BID 06/10/18 06/10/18 History Advance Directives Ethical and Legal Issues: Court appointed guardian Tatum Vargas. Phone number: [phone]. Physical Exam Vital Signs: Vital Signs - 24 hr 06/12/18 09:30 06/12/18 10:00 06/12/18 10:30 Temperature Pulse Rate 101 H 92 H 100 H Respiratory Rate 14 21 22 Blood Pressure 146/72 H 142/82 H 145/65 H Pulse Oximetry 98 98 98 06/12/18 11:00 06/12/18 11:30 06/12/18 12:00 Temperature 98.4 F Pulse Rate 96 H 101 H 106 H Respiratory Rate 22 21 21 Blood Pressure 113/66 123/66 136/71 Pulse Oximetry 92 L 94 L 06/12/18 12:30 06/12/18 13:00 06/12/18 13:30 Temperature Pulse Rate 100 H 106 H 98 H Respiratory Rate 22 18 20 Blood Pressure 137/66 146/76 H 142/84 H Pulse Oximetry 87 L 100 100 06/12/18 14:00 06/12/18 14:30 06/12/18 14:39 Temperature Pulse Rate 95 H 97 H 108 H Respiratory Rate 24 20 20 Blood Pressure 154/65 H 142/65 H Pulse Oximetry 100 100 06/12/18 15:00 06/12/18 15:30 06/12/18 16:00 Temperature 98.3 F Pulse Rate 104 H 102 H 110 H Respiratory Rate 21 21 23 Blood Pressure 157/71 H 144/67 H 164/79 H Pulse Oximetry 99 99 95 06/12/18 16:30 06/12/18 17:00 06/12/18 17:30 Temperature Pulse Rate 94 H 99 H 99 H Respiratory Rate 18 23 16 Blood Pressure 137/78 151/79 H 153/82 H Pulse Oximetry 100 97 100 06/12/18 18:00 06/12/18 19:00 06/12/18 19:30 Temperature Pulse Rate 99 H 96 H 100 H Respiratory Rate 11 L 20 21 Blood Pressure 144/113 H 125/84 143/81 H Pulse Oximetry 100 97 99 06/12/18 20:00 06/12/18 20:30 06/12/18 21:00 Temperature 99.6 F Pulse Rate 98 H 99 H 92 H Respiratory Rate 20 22 25 H Blood Pressure 151/80 H 157/77 H 165/67 H Pulse Oximetry 99 99 99 06/12/18 21:30 06/12/18 21:54 06/12/18 22:00 Temperature Pulse Rate 94 H 95 H 104 H Respiratory Rate 21 20 22 Blood Pressure 147/71 H 140/75 Pulse Oximetry 99 100 100 06/12/18 22:30 06/12/18 23:00 06/12/18 23:30 Temperature Pulse Rate 100 H 103 H 96 H Respiratory Rate 26 H 24 32 H Blood Pressure 158/70 H 161/71 H 128/85 Pulse Oximetry 99 96 93 L 06/13/18 00:00 06/13/18 00:30 06/13/18 01:00 Temperature 99.8 F H Pulse Rate 96 H 97 H 101 H Respiratory Rate 19 18 20 Blood Pressure 134/75 152/81 H 155/76 H Pulse Oximetry 100 99 99 06/13/18 01:30 06/13/18 02:00 06/13/18 02:30 Temperature Pulse Rate 98 H 102 H 99 H Respiratory Rate 18 21 26 H Blood Pressure 169/83 H 151/112 H 160/80 H Pulse Oximetry 100 100 100 06/13/18 03:00 06/13/18 03:30 06/13/18 04:00 Temperature 99.6 F Pulse Rate 97 H 95 H 98 H Respiratory Rate 20 22 19 Blood Pressure 156/81 H 155/79 H 158/76 H Pulse Oximetry 97 99 92 L 06/13/18 04:03 06/13/18 04:30 06/13/18 04:53 Temperature Pulse Rate 93 H 95 H 91 H Respiratory Rate 24 22 23 Blood Pressure 185/76 H 170/79 H Pulse Oximetry 97 98 06/13/18 05:00 06/13/18 05:30 06/13/18 06:00 Temperature Pulse Rate 98 H 94 H 98 H Respiratory Rate 18 19 24 Blood Pressure 161/77 H 141/57 H 155/71 H Pulse Oximetry 90 L 01/07/19 06:30 06/13/18 08:30 Temperature Pulse Rate 102 H Respiratory Rate 21 Blood Pressure 159/67 H Pulse Oximetry 97 I&O: Intake & Output 06/11/18 06/12/18 06/13/18 06/14/18 06:59 06:59 06:59 06:59 Intake Total 2019 2816 / 2816 1672 / 1672 300 / 300 Output Total 250 / 250 Balance 2019 2566 / 2566 1672 / 1672 300 / 300 Weight 60.5 kg 60.5 kg 62.5 kg Physical Exam: CONSTITUTIONAL/GENERAL: This is a frail, elderly gentleman in no acute distress TUBES/LINES/DRAINS: PIV, put his boots, NGT SKIN: No jaundice, rashes, or lesions. Ecchymoses on upper extremities. No wounds seen anteriorly. Skin temperature appropriate. Not diaphoretic. HEAD: Atraumatic. Normocephalic. EYES: Pupils equal and round and reactive. No scleral icterus. No injection or drainage. Fundi not examined. ENT: Hearing grossly normal. Nose without bleeding or purulent drainage. Mucous membranes moist and pink NECK: Trachea midline. Supple, nontender. No palpable thyroid enlargement or nodularity. CARDIOVASCULAR: Regular rate and rhythm without murmurs, gallops, or rubs. No JVD. Peripheral pulses symmetric. RESPIRATORY/CHEST: Symmetric, unlabored respirations. Clear to auscultation. Breath sounds equal bilaterally. No wheezes, rales, or rhonchi. GASTROINTESTINAL: Abdomen soft, non-tender, nondistended. Bowel sounds present. GENITOURINARY: Without palpable bladder distension. . MUSCULOSKELETAL: Extremities without clubbing, cyanosis, or edema. Noted gangrene right great and fifth toe with discoloration LYMPHATICS: No palpable cervical or supraclavicular adenopathy. NEUROLOGICAL: Does not follow commands. Withdraws to pain. PSYCHIATRIC: No obvious anxiety/depression. no apparent hallucinations or other psychotic thought process. Diagnostic Tests Laboratory: Laboratory Results - last 72 hr 06/10/18 06/10/18 06/10/18 12:45 12:45 12:45 WBC 9.0 RBC 3.05 L Hgb 9.5 L Hct 28.9 L MCV 94.6 MCH 31.3 MCHC 33.0 RDW 21.1 H Plt Count 250 MPV 9.8 Prelim Diff (Auto) Slide review pending Neut % (Auto) 78.9 H Lymph % (Auto) 7.5 L [place] % (Auto) 12.9 H Eos % (Auto) 0.1 Baso % (Auto) 0.6 Neut # (Auto) 7.1 Lymph # (Auto) 0.7 L [place] # (Auto) 1.2 H Eos # (Auto) 0.0 Baso # (Auto) 0.1 WBC Differential Manual diff final Seg Neuts % (Manual) 61 Band Neuts % (Manual) 14 H Lymphocytes % (Manual) 6 L Monocytes % (Manual) 19 H Eosinophils % (Manual) Basophils % (Manual) Abs Neuts (Manual) 6.8 Differential Comment . Platelet Estimate Normal Platelet Morphology Enlarged H Ovalocytes Sodium 147 H Potassium 4.5 Chloride 110 H Carbon Dioxide 28.3 Anion Gap 9 BUN 33 H Creatinine 2.21 H Estimated GFR 29 L Random Glucose 99 Lactic Acid 2.0 Calcium 8.7 Phosphorus Magnesium 2.4 Total Bilirubin 0.4 AST 32 ALT 22 Alkaline Phosphatase 73 Total Creatine Kinase 489 H CK-MB (CK-2) 4.0 H CK-MB (CK-2) % 0.8 Troponin I 1.17 H* Total Protein 7.7 Albumin 3.1 L Vitamin B12 TSH 1.570 Urine Color Urine Clarity Urine pH Ur Specific [place] Urine Protein Urine Glucose (UA) Urine Ketones Urine Occult Blood Urine Nitrate Urine Bilirubin Urine Urobilinogen Ur Leukocyte Esterase Urine RBC Urine WBC Urine Bacteria Micro UA Comment Ur Microscopic Review Urine Culture Comments Nasal Screen MRSA (PCR) Random Vancomycin 06/10/18 06/10/18 06/10/18 12:45 12:45 18:15 WBC RBC Hgb Hct MCV MCH MCHC RDW Plt Count MPV Prelim Diff (Auto) Neut % (Auto) Lymph % (Auto) [place] % (Auto) Eos % (Auto) Baso % (Auto) Neut # (Auto) Lymph # (Auto) [place] # (Auto) Eos # (Auto) Baso # (Auto) WBC Differential Seg Neuts % (Manual) Band Neuts % (Manual) Lymphocytes % (Manual) Monocytes % (Manual) Eosinophils % (Manual) Basophils % (Manual) Abs Neuts (Manual) Differential Comment Platelet Estimate Platelet Morphology Ovalocytes Sodium Potassium Chloride Carbon Dioxide Anion Gap BUN Creatinine Estimated GFR Random Glucose Lactic Acid Calcium Phosphorus Magnesium Total Bilirubin AST ALT Alkaline Phosphatase Total Creatine Kinase CK-MB (CK-2) CK-MB (CK-2) % Troponin I Total Protein Albumin Vitamin B12 TSH Cancelled Urine Color Yellow Urine Clarity Hazy H Urine pH 5.0 Ur Specific [place] 1.015 Urine Protein 100 H Urine Glucose (UA) Negative Urine Ketones Negative Urine Occult Blood Moderate H Urine Nitrate Negative Urine Bilirubin Negative Urine Urobilinogen 2.0 H Ur Leukocyte Esterase Trace H Urine RBC 18 H Urine WBC 31 H Urine Bacteria Rare H Micro UA Comment Cath-culture ind Ur Microscopic Review Not Reportable Urine Culture Comments Cath-cult indicated Nasal Screen MRSA (PCR) Not detected Random Vancomycin 06/10/18 06/11/18 06/11/18 22:04 02:20 02:20 WBC 7.0 RBC 2.77 L Hgb 8.7 L Hct 26.0 L MCV 93.9 MCH 31.4 MCHC 33.4 RDW 21.0 H Plt Count 209 MPV 10.1 Prelim Diff (Auto) Neut % (Auto) 73.4 H Lymph % (Auto) 11.6 [place] % (Auto) 14.2 H Eos % (Auto) 0.3 Baso % (Auto) 0.5 Neut # (Auto) 5.2 Lymph # (Auto) 0.8 L [place] # (Auto) 1.0 H Eos # (Auto) 0.0 Baso # (Auto) 0.0 WBC Differential . Seg Neuts % (Manual) Band Neuts % (Manual) Lymphocytes % (Manual) Monocytes % (Manual) Eosinophils % (Manual) Basophils % (Manual) Abs Neuts (Manual) Differential Comment Auto diff final Platelet Estimate Platelet Morphology Ovalocytes Sodium 149 H Potassium 4.4 Chloride 116 H Carbon Dioxide 22.1 Anion Gap 11 BUN 32 H Creatinine 1.79 H Estimated GFR 37 L Random Glucose 114 H Lactic Acid Calcium 7.8 L D Phosphorus Magnesium 2.1 Total Bilirubin 0.5 AST 32 ALT 21 Alkaline Phosphatase 62 Total Creatine Kinase CK-MB (CK-2) CK-MB (CK-2) % Troponin I 1.15 H* Total Protein 6.6 D Albumin 2.6 L Vitamin B12 677 TSH Urine Color Urine Clarity Urine pH Ur Specific [place] Urine Protein Urine Glucose (UA) Urine Ketones Urine Occult Blood Urine Nitrate Urine Bilirubin Urine Urobilinogen Ur Leukocyte Esterase Urine RBC Urine WBC Urine Bacteria Micro UA Comment Ur Microscopic Review Urine Culture Comments Nasal Screen MRSA (PCR) Random Vancomycin 9.8 06/12/18 06/12/18 06/13/18 03:44 03:44 06:13 WBC 5.0 6.5 RBC 2.94 L 3.06 L Hgb 9.1 L 9.5 L Hct 28.0 L 29.4 L MCV 95.0 96.3 MCH 30.8 31.1 MCHC 32.5 32.3 RDW 21.5 H 21.0 H Plt Count 224 231 MPV 10.1 10.2 Prelim Diff (Auto) Slide review pending Neut % (Auto) 61.9 60.4 Lymph % (Auto) 17.7 15.7 [place] % (Auto) 17.4 H 21.8 H Eos % (Auto) 1.8 1.5 Baso % (Auto) 1.2 0.6 Neut # (Auto) 3.1 3.9 Lymph # (Auto) 0.9 L 1.0 [place] # (Auto) 0.9 1.4 H Eos # (Auto) 0.1 0.1 Baso # (Auto) 0.1 0.0 WBC Differential . Manual diff final Seg Neuts % (Manual) 48 Band Neuts % (Manual) 15 H Lymphocytes % (Manual) 17 Monocytes % (Manual) 16 H Eosinophils % (Manual) 3 Basophils % (Manual) 1 Abs Neuts (Manual) 4.1 Differential Comment Auto diff final . Platelet Estimate Normal Platelet Morphology Enlarged H Ovalocytes 1+ H Sodium 148 H Potassium 4.1 Chloride 117 H Carbon Dioxide 23.0 Anion Gap 8 BUN 28 H Creatinine 1.72 H Estimated GFR 39 L Random Glucose 137 H Lactic Acid Calcium 8.1 L Phosphorus 2.6 Magnesium 2.1 Total Bilirubin 0.5 AST 29 ALT 19 Alkaline Phosphatase 57 Total Creatine Kinase CK-MB (CK-2) CK-MB (CK-2) % Troponin I Total Protein 6.3 L Albumin 2.6 L Vitamin B12 TSH Urine Color Urine Clarity Urine pH Ur Specific [place] Urine Protein Urine Glucose (UA) Urine Ketones Urine Occult Blood Urine Nitrate Urine Bilirubin Urine Urobilinogen Ur Leukocyte Esterase Urine RBC Urine WBC Urine Bacteria Micro UA Comment Ur Microscopic Review Urine Culture Comments Nasal Screen MRSA (PCR) Random Vancomycin Result Diagrams: 06/13/18 06:13 06/12/18 03:44 Microbiology: Microbiology 06/10/18 12:50 Aerobic Blood Culture - Preliminary Blood - Peripheral No growth in 2 days Anaerobic Blood Culture - Preliminary No growth in 2 days 06/10/18 12:45 Aerobic Blood Culture - Preliminary Blood - Peripheral No growth in 2 days Anaerobic Blood Culture - Preliminary No growth in 2 days 06/10/18 12:45 Urine Culture - Final Catheterized Urine No growth in 48 hours Imaging: Carotid Doppler Study 06/10/18 00:00 CONCLUSION: 1. Moderate atherosclerotic plaquing at both carotid bifurcations. 2. No focal high-grade or hemodynamically significant stenosis. 3. The left vertebral artery was not visualized. Foot X-Ray 06/10/18 00:00 CONCLUSION: Chronic changes and no definite fracture for technique. Chest X-Ray 06/10/18 12:45 CONCLUSION: 1. Minimal bibasilar airspace disease, presumably atelectasis. Formal PA and lateral views of the chest may be obtained if there is continued clinical uncertainty. Head CT 06/10/18 13:20 CONCLUSION: Acute nonhemorrhagic infarction left MCA territory without any mass effect. Findings were discussed with Dr. Mccray at the time of this dictation on 06/10/2018 at 2:45 hours. Head MRI 06/11/18 00:00 CONCLUSION: 1. Extensive bilateral infarctions worse on the left without any significant mass effect or hemorrhage. Head MRA 06/11/18 00:00 CONCLUSION: 1. There is absent flow past the left M1 and possibility of acute thrombus at this site should be entertained. 2. Extensive atherosclerotic disease bilaterally worse involving the right MCA branches with multiple areas of high-grade stenosis. Patient/Family Conference Present at Family Conference: Met with patient's court appointed guardian, Tatum Fairbanks Sam. Family Conference Location: Bedside, Hallway, Telephone Issues Discussed: * Palliative care role, purpose, approach * Additional medical, psychosocial, and spiritual history * Patients general health, functional status, and cognitive changes in the months leading up to the current hospitalization * Patient/family understanding of the current medical problems * Patient/family understanding of prognosis * Patients goals of care as best understood from advance directives and/or conversations and/or values * Current medical treatment options and benefits/burdens of those options * Likely scenarios comparing ongoing aggressive care with a transition to comfort measures only * Questions answered to the best of my ability * Palliative care contact information provided . Assessment and Plan - Disease Oriented Problem List (1) Acute ischemic left MCA stroke (2) Acute encephalopathy (3) Sepsis (4) Non-ST elevation [place] (NSTEMI) (5) Gangrene of right foot (6) Cellulitis of right foot (7) Chronic kidney disease (8) TIA (transient ischemic attack) (9) Type 2 diabetes mellitus (10) Hypertension (11) Dementia Pertinent Non-Medical Issues: Psychosocial: Patient lived in [place] for many years. He has been twice. He has 2 adult children, a son and daughter, and several siblings. Patient was living at [facility] prior to this hospitalization. Spiritual: Unknown Legal: Patient has a court appointed guardian through [facility] Ethical issues impacting care: No known ethical issues impacting care at this time. Important Contacts: Tatum Vargas, court appointed guardian, at [phone] or [phone] Prognosis: Patient had an acute left MCA stroke which progressed to the intensive bilateral infarcts. Prognosis is exacerbated by acute on chronic renal failure, non-STEMI, sepsis, right foot gangrene, cellulitis and UTI. Patient is not a candidate for aggressive interventions. Hospice would be an appropriate option at this time for end-of-life care and symptom management of pain and dyspnea Code Status: No Code DNR Plan: * NO CODE-DNR/DNI * Patient has a court appointed guardian, Tatum Vargas, from [facility]. Contact number: [phone] or [phone] x [phone] * Court appointed guardian/family requesting hospice services for comfort focused care at end of life. If the patient is not appropriate for care center for admission, family would like patient admitted to a facility closer to their home in [place] or [place]. * Discussed patient with Cynthia-RN, Zoie Espinoza-case management, Justice-hospice intake and Dr. Dixon. * Hospice was consult. Patient be admitted to hospice services, transferring to [facility] for symptom management of pain and dyspnea. * Symptom management-pain, dyspnea:Patient's oxygen saturation is in the mid 90s on 2 L via nasal cannula. He is intermittently tachypneic with accessory muscle usage. Per nursing report, patient grimacing with care and repositioning. Patient being transferred to the hospice care center. Recommendations for morphine 5-10 mg PO/SL every 4 hours as needed for pain and/ or dyspnea as well as lorazepam 0.5-1 mg PO/SL every 4 hours as needed for dyspnea and/or anxiety. * [facility] DO NOT RESUSCITATE order was completed on 06/13/2018. Original was placed in the patient's paper chart. Copy was given to patient's court appointed guardian, Tatum Vargas. Appreciation Thank you for the opportunity to participate in the care of Jose F Chicas. Attestation Attestation: To help prompt me to consider important information that might be impacting today's encounter and assessment, information from prior notes written by myself or my colleagues may have been "brought forward" into today's note. My signature on this note, however, is an attestation that I personally performed the exam, history, and/or decision-making noted today, and, unless otherwise indicated, the interactions with patient, family, and staff as well as the review of records all occurred today. I also attest that the listed assessment and stated plan reflect my best clinical judgment today based on the combination of historical information, prior notes, and today's exam/ interactions. When time spent is documented, it refers only to time spent today by the signer, or if indicated, combined time spent today by collaborating physician/nurse practitioner.
[2018-06-13] MEDS: Senna/Docusate Sodium 8.6/50 MG Tablet PO SCH (10:15)
[2018-06-13] MEDS: Famotidine PF Inj 20 MG/2 ML Vial IV.PUSH SCH (10:18)
--- NOTE | 2018-06-13 15:27 | P.PNCC ---
Subjective Subjective Remarks/Hospital Course: 06/11: Noted right gaze deviation this a.m. neurologist Dr. Marcus mcelroy. MRI brain obtained revealed extensive bilateral infarct. Cardiology following patient was noted not to be candidate for aggressive cardiac evaluation secondary to the extensive bilateral brain infarcts. Vascular surgery was consulted regarding discoloration right great toe no plans for surgical intervention noted dry gangrene. Tube feedings initiated. 06/12: Afebrile .Noted left gaze deviation today. Withdraws to pain . No change in neurological status. Awaiting discussion with guardian and palliative care team as patient will require gastric feeding tube. Patient tolerating tube feeds. 06/13: Late entry note patient seen earlier this a.m. around 7:15 AM. No change in neurological status. Vital signs stable throughout the night. This afternoon discussion with guardian regarding patient's status. Meeting held with palliative care hourly team members Ms. Mely Bui. Post meeting, decision made to plan for transition to hospice. Objective Vital Signs / I&O: Vital Signs 06/12/18 15:30 06/12/18 16:00 06/12/18 16:30 Temperature 98.3 F Pulse Rate 102 H 110 H 94 H Respiratory Rate 21 23 18 Blood Pressure 144/67 H 164/79 H 137/78 Pulse Oximetry 99 95 100 06/12/18 17:00 06/12/18 17:30 06/12/18 18:00 Temperature Pulse Rate 99 H 99 H 99 H Respiratory Rate 23 16 11 L Blood Pressure 151/79 H 153/82 H 144/113 H Pulse Oximetry 97 100 100 06/12/18 19:00 06/12/18 19:30 06/12/18 20:00 Temperature 99.6 F Pulse Rate 96 H 100 H 98 H Respiratory Rate 20 21 20 Blood Pressure 125/84 143/81 H 151/80 H Pulse Oximetry 97 99 99 06/12/18 20:30 06/12/18 21:00 06/12/18 21:30 Temperature Pulse Rate 99 H 92 H 94 H Respiratory Rate 22 25 H 21 Blood Pressure 157/77 H 165/67 H 147/71 H Pulse Oximetry 99 99 99 06/12/18 21:54 06/12/18 22:00 06/12/18 22:30 Temperature Pulse Rate 95 H 104 H 100 H Respiratory Rate 20 22 26 H Blood Pressure 140/75 158/70 H Pulse Oximetry 100 100 99 06/12/18 23:00 06/12/18 23:30 06/13/18 00:00 Temperature 99.8 F H Pulse Rate 103 H 96 H 96 H Respiratory Rate 24 32 H 19 Blood Pressure 161/71 H 128/85 134/75 Pulse Oximetry 96 93 L 100 06/13/18 00:30 06/13/18 01:00 06/13/18 01:30 Temperature Pulse Rate 97 H 101 H 98 H Respiratory Rate 18 20 18 Blood Pressure 152/81 H 155/76 H 169/83 H Pulse Oximetry 99 99 100 06/13/18 02:00 06/13/18 02:30 06/13/18 03:00 Temperature Pulse Rate 102 H 99 H 97 H Respiratory Rate 21 26 H 20 Blood Pressure 151/112 H 160/80 H 156/81 H Pulse Oximetry 100 100 97 06/13/18 03:30 06/13/18 04:00 06/13/18 04:03 Temperature 99.6 F Pulse Rate 95 H 98 H 93 H Respiratory Rate 22 19 24 Blood Pressure 155/79 H 158/76 H Pulse Oximetry 99 92 L 06/13/18 04:30 06/13/18 04:53 06/13/18 05:00 Temperature Pulse Rate 95 H 91 H 98 H Respiratory Rate 22 23 18 Blood Pressure 185/76 H 170/79 H 161/77 H Pulse Oximetry 97 98 90 L 06/13/18 05:30 06/13/18 06:00 06/13/18 06:30 Temperature Pulse Rate 94 H 98 H 102 H Respiratory Rate 19 24 21 Blood Pressure 141/57 H 155/71 H 159/67 H Pulse Oximetry 06/13/18 08:00 06/13/18 08:30 06/13/18 10:00 Temperature Pulse Rate 101 H 113 H Respiratory Rate Blood Pressure Pulse Oximetry 100 97 Intake & Output 06/12/18 06/13/18 06/13/18 18:59 06:59 18:59 Intake Total 364 / 364 1308 / 1308 300 / 300 Balance 364 / 364 1308 / 1308 300 / 300 Weight 62.5 kg Intake: IV 100 / 100 1050 / 1050 300 / 300 NS Inj 1,000 ML @ 84 mls/hr IV. 1000 / 1000 CONT .[id number] [facility] Rx#:[id number] Zosyn 2.25 GM Premix 2.25 gm In 100 / 100 50 / 50 50 / 50 50 ml @ 100 mls/hr IV.SIG Q6H [facility] Rx#:[id number] Vancomycin Inj 1,000 MG In NS 250 / 250 Inj 250 ML @ 250 mls/hr IV.SIG Q24H [facility] Rx#:[id number] Tube Feeding 144 / 144 108 / 108 Tube Irrigant 150 / 150 Water Bolus Amount 120 / 120 Other: # Voids 7 # Incontinent Voids 2 Date of Last Bowel Movement 06/12/18 06/12/18 06/13/18 # Bowel Movements 5 # Incontinent Bowel Movements 2 Result Diagrams: 06/13/18 06:13 06/12/18 03:44 Other Results: Laboratory Results WBC 6.5 th/mm3 (4.0-11.0) 06/13/18 06:13 RBC 3.06 mil/mm3 (4.50-5.90) L 06/13/18 06:13 Hgb 9.5 gm/dL (13.0-17.0) L 06/13/18 06:13 Hct 29.4 % (39.0-51.0) L 06/13/18 06:13 MCV 96.3 fL (80.0-100.0) 06/13/18 06:13 MCH 31.1 pg (27.0-34.0) 06/13/18 06:13 MCHC 32.3 % (32.0-36.0) 06/13/18 06:13 RDW 21.0 % (11.6-17.2) H 06/13/18 06:13 Plt Count 231 th/mm3 (150-450) 06/13/18 06:13 MPV 10.2 fL (7.0-11.0) 06/13/18 06:13 Prelim Diff (Auto) Slide review pending 06/13/18 06:13 Neut % (Auto) 60.4 % (16.0-70.0) 06/13/18 06:13 Lymph % (Auto) 15.7 % (9.0-44.0) 06/13/18 06:13 [place] % (Auto) 21.8 % (0.0-8.0) H 06/13/18 06:13 Eos % (Auto) 1.5 % (0.0-4.0) 06/13/18 06:13 Baso % (Auto) 0.6 % (0.0-2.0) 06/13/18 06:13 Neut # (Auto) 3.9 th/mm3 (1.8-7.7) 06/13/18 06:13 Lymph # (Auto) 1.0 th/mm3 (1.0-4.8) 06/13/18 06:13 Dillon # (Auto) 1.4 th/mm3 (0.0-0.9) H 06/13/18 06:13 Eos # (Auto) 0.1 th/mm3 (0.0-0.4) 06/13/18 06:13 Baso # (Auto) 0.0 th/mm3 (0.0-0.2) 06/13/18 06:13 WBC Differential Manual diff final 06/13/18 06:13 Seg Neuts % (Manual) 48 % (16-70) 06/13/18 06:13 Band Neuts % (Manual) 15 % (0-6) H 06/13/18 06:13 Lymphocytes % (Manual) 17 % (9-44) 06/13/18 06:13 Monocytes % (Manual) 16 % (0-8) H 06/13/18 06:13 Eosinophils % (Manual) 3 % (0-4) 06/13/18 06:13 Basophils % (Manual) 1 % (0-2) 06/13/18 06:13 Abs Neuts (Manual) 4.1 th/mm3 (1.8-7.7) 06/13/18 06:13 Differential Comment . 06/13/18 06:13 Platelet Estimate Normal (Normal) 06/13/18 06:13 Platelet Morphology Enlarged (Normal) H 06/13/18 06:13 Ovalocytes 1+ (None) H 06/13/18 06:13 Sodium 148 meq/L (136-145) H 06/12/18 03:44 Potassium 4.1 meq/L (3.5-5.1) 06/12/18 03:44 Chloride 117 meq/L (98-107) H 06/12/18 03:44 Carbon Dioxide 23.0 meq/L (21.0-32.0) 06/12/18 03:44 Anion Gap 8 meq/L (5-15) 06/12/18 03:44 BUN 28 mg/dL (7-18) H 06/12/18 03:44 Creatinine 1.72 mg/dL (0.60-1.30) H 06/12/18 03:44 Estimated GFR 39 mL/min (>89) L 06/12/18 03:44 Random Glucose 137 mg/dL (74-106) H 06/12/18 03:44 Lactic Acid 2.0 mmol/L (0.4-2.0) 06/10/18 12:45 Calcium 8.1 mg/dL (8.5-10.1) L 06/12/18 03:44 Phosphorus 2.6 mg/dL (2.5-4.9) 06/12/18 03:44 Magnesium 2.1 mg/dL (1.5-2.5) 06/12/18 03:44 Total Bilirubin 0.5 mg/dL (0.2-1.0) 06/12/18 03:44 AST 29 U/L (15-37) 06/12/18 03:44 ALT 19 U/L (12-78) 06/12/18 03:44 Alkaline Phosphatase 57 U/L (45-117) 06/12/18 03:44 Total Creatine Kinase 489 U/L (39-308) H 06/10/18 12:45 CK-MB (CK-2) 4.0 ng/mL (0.5-3.6) H 06/10/18 12:45 CK-MB (CK-2) % 0.8 % (0.0-4.0) 06/10/18 12:45 Troponin I 1.15 ng/mL (0.02-0.05) H* 06/10/18 22:04 Total Protein 6.3 g/dL (6.4-8.2) L 06/12/18 03:44 Albumin 2.6 g/dL (3.4-5.0) L 06/12/18 03:44 Vitamin B12 677 pg/mL (193-986) 06/10/18 22:04 TSH 1.570 uIU/mL (0.358-3.740) 06/10/18 12:45 Urine Color Yellow (Yellw/Straw) 06/10/18 12:45 Urine Clarity Hazy (Clear) H 06/10/18 12:45 Urine pH 5.0 (5.0-8.5) 06/10/18 12:45 Ur Specific [place] 1.015 (1.002-1.035) 06/10/18 12:45 Urine Protein 100 mg/dL (Neg-Trace) H 06/10/18 12:45 Urine Glucose (UA) Negative mg/dL (Negative) 06/10/18 12:45 Urine Ketones Negative mg/dL (Negative) 06/10/18 12:45 Urine Occult Blood Moderate (Negative) H 06/10/18 12:45 Urine Nitrate Negative (Negative) 06/10/18 12:45 Urine Bilirubin Negative (Negative) 06/10/18 12:45 Urine Urobilinogen 2.0 mg/dL (Less than 2) H 06/10/18 12:45 Ur Leukocyte Esterase Trace (Negative) H 06/10/18 12:45 Urine RBC 18 /hpf (0-3) H 06/10/18 12:45 Urine WBC 31 /hpf (0-5) H 06/10/18 12:45 Urine Bacteria Rare /hpf (None) H 06/10/18 12:45 Micro UA Comment Cath-culture ind 06/10/18 12:45 Ur Microscopic Review Not Reportable 06/10/18 12:45 Urine Culture Comments Cath-cult indicated 06/10/18 12:45 Nasal Screen MRSA (PCR) Not detected (Negative) 06/10/18 18:15 Random Vancomycin 9.8 Comment 06/11/18 02:20 Impressions Carotid Doppler Study 06/10/18 00:00 CONCLUSION: 1. Moderate atherosclerotic plaquing at both carotid bifurcations. 2. No focal high-grade or hemodynamically significant stenosis. 3. The left vertebral artery was not visualized. Foot X-Ray 06/10/18 00:00 CONCLUSION: Chronic changes and no definite fracture for technique. Chest X-Ray 06/10/18 12:45 CONCLUSION: 1. Minimal bibasilar airspace disease, presumably atelectasis. Formal PA and lateral views of the chest may be obtained if there is continued clinical uncertainty. Head CT 06/10/18 13:20 CONCLUSION: Acute nonhemorrhagic infarction left MCA territory without any mass effect. Findings were discussed with Dr. Mccray at the time of this dictation on 06/10/2018 at 2:45 hours. Head MRI 06/11/18 00:00 CONCLUSION: 1. Extensive bilateral infarctions worse on the left without any significant mass effect or hemorrhage. Head MRA 06/11/18 00:00 CONCLUSION: 1. There is absent flow past the left M1 and possibility of acute thrombus at this site should be entertained. 2. Extensive atherosclerotic disease bilaterally worse involving the right MCA branches with multiple areas of high-grade stenosis. Objective Remarks: GENERAL: This is a well-developed well-nourished a phasic gentleman of stated age ,non-responsive SKIN: Warm and dry. HEAD: Atraumatic. Normocephalic. EYES: PERRLA. No scleral icterus. No injection or drainage. ENT: No nasal bleeding or discharge. Mucous membranes pink and moist. NECK: Trachea midline. No JVD. CARDIOVASCULAR: Normal rate, regular rhythm. RESPIRATORY: No accessory muscle use. Clear to auscultation. Breath sounds equal bilaterally. GASTROINTESTINAL: Abdomen soft, non-tender, nondistended. No guarding. MUSCULOSKELETAL: Extremities without clubbing or edema. Noted gangrene right great and fifth toe with discoloration NEUROLOGICAL: Awake, aphasic. RASS 0. Left gaze deviation. Rigidity right upper extremity. Spontaneous movement of bilateral lower extremities. Does not follow commands. Withdraws to painful stimuli. Assessment and Plan - Problem List (1) Acute ischemic left MCA stroke Code(s): I63.512 - Cerebral infarction due to unspecified occlusion or stenosis of left middle cerebral artery Status: Acute (2) Acute encephalopathy Code(s): G93.40 - Encephalopathy, unspecified Status: Acute (3) Sepsis Code(s): A41.9 - Sepsis, unspecified organism Status: Acute (4) Non-ST elevation [place] (NSTEMI) Code(s): I21.4 - Non-ST elevation (NSTEMI) myocardial infarction Status: Acute (5) UTI (urinary tract infection) Code(s): N39.0 - Urinary tract infection, site not specified Status: Acute (6) Gangrene of right foot Code(s): I96 - Gangrene, not elsewhere classified Status: Acute (7) Cellulitis of right foot Code(s): L03.115 - Cellulitis of right lower limb Status: Acute (8) Altered mental status Code(s): R41.82 - Altered mental status, unspecified Status: Acute (9) Chronic kidney disease Code(s): N18.9 - Chronic kidney disease, unspecified Status: Chronic (10) TIA (transient ischemic attack) Code(s): G45.9 - Transient cerebral ischemic attack, unspecified Status: Chronic (11) Type 2 diabetes mellitus Code(s): E11.9 - Type 2 diabetes mellitus without complications Status: Chronic (12) Hypertension Code(s): I10 - Essential (primary) hypertension Status: Chronic (13) Dementia Code(s): F03.90 - Unspecified dementia without behavioral disturbance Status: Chronic - Assessment and Plan Plan: NEURO: Acute left MCA stroke Acute metabolic encephalopathy History of TIA Dementia -CT shows acute stroke involving left MCA territory -06/11 MRI brain extensive bilateral infarcts -Not a TPA candidate unknown time of onset -Not a candidate for CT angiogram due to creatinine more than 2.2, and unknown time of onset -Aspirin 81 mg daily -Further workup with 2D echo, B12, TSH, carotid Doppler -Statins when p.o. permitted -PT OT, swallow eval pending RESP: Respiratory insufficiency -DuoNeb every 6 hours scheduled and as needed -Monitor closely for airway protection CV: Non-ST elevation OH Hypertension -Normal saline IV fluids 2 L bolus and 84 mL/h, -06/11 2d echo-EF 60-65%, grade 1 diastolic dysfunction -cardiology consulted-no plans for aggressive cardiac evaluation secondary to extensive bilateral brain infarct -Start aspirin 81 mg daily, Lipitor 20 mg daily -Not a candidate for IV anticoagulation due to acute stroke -Start low-dose beta-timothy Coreg 3.125 mg twice daily -Avoid systolic blood pressure less than 150 due to acute stroke however need control due to acute OH GI: -N.p.o. -Obtain swallow evaluation, IV famotidine -NG tube placement for medication administration -Patient will probably require PEG tube placement : Acute on chronic kidney disease -Monitor renal function closely. Joseph catheter continue. -Previous creatinine unknown. -Careful hydration as above, if creatinine not improving will consult nephrology -Noted continued improvement of creatinine ID/MSK: Severe sepsis UTI Right foot gangrene and cellulitis -Antibiotics in the form of vancomycin and Zosyn, metronidazole -Blood urine and sputum cultures -Podiatry consult for left foot gangrene HEME: Anemia -Monitor CBC, coags -Check B12 ENDO: -Electrolyte replacement as needed -Sliding scale insulin, if needed PROPH: -Bilateral lower extremity SCDs. Heparin/famotidine LINES: -Utilize peripheral IVs, central line if needed Patient is very critical with poor prognosis. He has acute left MCA stroke, which now has progressed to bilateral extensive infarcts which is large in size complicated by acute on chronic renal failure non-ST elevation [place], sepsis, right foot gangrene, cellulitis, and UTI. He is overall prognosis is very poor and I have consulted palliative care. He needs close ICU monitoring for potential neurological and respiratory decompensation Level 3 follow-up Discussion with palliative care hourly team members Mely Bui this afternoon post meeting with family and legal guardian decision made for discharge to hospice care center. Code Status: DNR Discussed Condition With: Mely Bui, and CUSTOMER SALES CONSULTANT at bedside (5) UTI (urinary tract infection) Qualifiers: Urinary tract infection type: site unspecified Hematuria presence: without hematuria Qualified Code(s): N39.0 - Urinary tract infection, site not specified (8) Altered mental status Qualifiers: Altered mental status type: unspecified Qualified Code(s): R41.82 - Altered mental status, unspecified
--- NOTE | 2018-06-13 15:40 | P.DS ---
Date of admission: 06/10/18 16:18 Primary care physician: UNKNOWN Attending physician on discharge: Tishkaycee Dixon Anticipated date of discharge: 06/13/18 Brief History from admission: Patient is a 78-year-old male who is a senior living resident with past medical history of TIA, dementia, chronic kidney disease, hypertension, type 2 diabetes. He also has a history of gangrene of the right big toe and fifth toe and was receiving antibiotics (Bactrim and Flagyl) at the senior living. He presented to the emergency department with altered mental status. No further history is available and time of onset is not clearly known. Further workup showed patient had evidence of UTI. His troponin was elevated at 1.4 with EKG showing evidence of lateral ischemia. A CT of the head showed acute left MCA stroke. Critical care medicine was consulted for admission of this critically ill patient. I evaluated the patient in the ED. He is lethargic eyes are spontaneously open with left gaze. He does not speak but moans on exam. Withdraws left upper and bilateral lower extremity right upper extremity is flaccid. He is severely encephalopathic and appears critically ill. Received 1 L normal saline bolus in the ED and vancomycin and Zosyn. I will continue vancomycin Zosyn after making sure cultures have been sent, Give additional 1 L fluid bolus. His stroke had been discussed with neurology Dr. Frederick. Because of unknown time of onset and overall poor prognosis he is not a candidate for any acute invasive procedures including angiogram, also his creatinine is elevated. He is developing multiorgan failure at this time. He also had right foot cellulitis and gangrene of right big toe and right fifth toe. I will consult palliative care for assistance in addressing goals of care Patient update on day of discharge: 06/11: Noted right gaze deviation this a.m. neurologist Dr. Velazquez aware. MRI brain obtained revealed extensive bilateral infarct. Cardiology following patient was noted not to be candidate for aggressive cardiac evaluation secondary to the extensive bilateral brain infarcts. Vascular surgery was consulted regarding discoloration right great toe no plans for surgical intervention noted dry gangrene. Tube feedings initiated. 06/12: Afebrile .Noted left gaze deviation today. Withdraws to pain . No change in neurological status. Awaiting discussion with guardian and palliative care team as patient will require gastric feeding tube. Patient tolerating tube feeds. 06/13: Late entry note patient seen earlier this a.m. around 7:15 AM. No change in neurological status. Vital signs stable throughout the night. This afternoon discussion with guardian regarding patient's status. Meeting held with palliative care teamcenter solution architect Ms. Mely Bui. Post meeting, decision made to plan for transition to hospice. DS: Diagnosis - Discharge Diagnosis (1) Acute ischemic left MCA stroke Status: Acute (2) Acute encephalopathy Status: Acute (3) Sepsis Status: Acute (4) Non-ST elevation MT (NSTEMI) Status: Acute (5) UTI (urinary tract infection) Status: Acute (6) Gangrene of right foot Status: Acute (7) Cellulitis of right foot Status: Acute (8) Altered mental status Status: Acute (9) Chronic kidney disease Status: Chronic (10) TIA (transient ischemic attack) Status: Chronic (11) Type 2 diabetes mellitus Status: Chronic (12) Hypertension Status: Chronic (13) Dementia Status: Chronic DS: Summary Hospital Course: 06/11: Noted right gaze deviation this a.m. neurologist Dr. Marcus mcelroy. MRI brain obtained revealed extensive bilateral infarct. Cardiology following patient was noted not to be candidate for aggressive cardiac evaluation secondary to the extensive bilateral brain infarcts. Vascular surgery was consulted regarding discoloration right great toe no plans for surgical intervention noted dry gangrene. Tube feedings initiated. 06/12: Afebrile .Noted left gaze deviation today. Withdraws to pain . No change in neurological status. Awaiting discussion with guardian and palliative care team as patient will require gastric feeding tube. Patient tolerating tube feeds. 06/13: Late entry note patient seen earlier this a.m. around 7:15 AM. No change in neurological status. Vital signs stable throughout the night. This afternoon discussion with guardian regarding patient's status. Meeting held with palliative care teamcenter solution architect Ms. Mely Bui. Post meeting, decision made to plan for transition to hospice. - Time Spent with Patient Total time spent providing and/or coordinating discharge services: Less than 30 minutes - Quality: AMI Clinical Trial Participant: No - Quality: Stroke Symptom Onset Unknown: Yes - Quality: VTE Deep Vein Thrombosis/Pulmonary Embolism Present on Admission: No Exam Vital signs: Vital Signs 06/12/18 16:00 06/12/18 16:30 06/12/18 17:00 Temperature Pulse Rate 110 H 94 H 99 H Respiratory Rate 23 18 23 Blood Pressure 164/79 H 137/78 151/79 H Pulse Oximetry 95 100 97 06/12/18 17:30 06/12/18 18:00 06/12/18 19:00 Temperature Pulse Rate 99 H 99 H 96 H Respiratory Rate 16 11 L 20 Blood Pressure 153/82 H 144/113 H 125/84 Pulse Oximetry 100 100 97 06/12/18 19:30 06/12/18 20:00 06/12/18 20:30 Temperature 99.6 F Pulse Rate 100 H 98 H 99 H Respiratory Rate 21 20 22 Blood Pressure 143/81 H 151/80 H 157/77 H Pulse Oximetry 99 99 99 06/12/18 21:00 06/12/18 21:30 06/12/18 21:54 Temperature Pulse Rate 92 H 94 H 95 H Respiratory Rate 25 H 21 20 Blood Pressure 165/67 H 147/71 H Pulse Oximetry 99 99 100 06/12/18 22:00 06/12/18 22:30 06/12/18 23:00 Temperature Pulse Rate 104 H 100 H 103 H Respiratory Rate 22 26 H 24 Blood Pressure 140/75 158/70 H 161/71 H Pulse Oximetry 100 99 96 06/12/18 23:30 06/13/18 00:00 06/13/18 00:30 Temperature 99.8 F H Pulse Rate 96 H 96 H 97 H Respiratory Rate 32 H 19 18 Blood Pressure 128/85 134/75 152/81 H Pulse Oximetry 93 L 100 99 06/13/18 01:00 06/13/18 01:30 06/13/18 02:00 Temperature Pulse Rate 101 H 98 H 102 H Respiratory Rate 20 18 21 Blood Pressure 155/76 H 169/83 H 151/112 H Pulse Oximetry 99 100 100 06/13/18 02:30 06/13/18 03:00 06/13/18 03:30 Temperature Pulse Rate 99 H 97 H 95 H Respiratory Rate 26 H 20 22 Blood Pressure 160/80 H 156/81 H 155/79 H Pulse Oximetry 100 97 99 06/13/18 04:00 06/13/18 04:03 06/13/18 04:30 Temperature 99.6 F Pulse Rate 98 H 93 H 95 H Respiratory Rate 19 24 22 Blood Pressure 158/76 H 185/76 H Pulse Oximetry 92 L 97 06/13/18 04:53 01/07/19 05:00 06/13/18 05:30 Temperature Pulse Rate 91 H 98 H 94 H Respiratory Rate 23 18 19 Blood Pressure 170/79 H 161/77 H 141/57 H Pulse Oximetry 98 90 L 06/13/18 06:00 06/13/18 06:30 06/13/18 08:00 Temperature Pulse Rate 98 H 102 H 101 H Respiratory Rate 24 21 Blood Pressure 155/71 H 159/67 H Pulse Oximetry 100 06/13/18 08:30 06/13/18 10:00 Temperature Pulse Rate 113 H Respiratory Rate Blood Pressure Pulse Oximetry 97 Intake & Output 06/12/18 06/13/18 06/13/18 18:59 06:59 18:59 Intake Total 364 / 364 1308 / 1308 1350 / 1350 Balance 364 / 364 1308 / 1308 1350 / 1350 Weight 62.5 kg Intake: IV 100 / 100 1050 / 1050 1350 / 1350 NS Inj 1,000 ML @ 84 mls/hr IV. 1000 / 1000 1000 / 1000 CONT .[id number] [facility] Rx#:[id number] Zosyn 2.25 GM Premix 2.25 gm In 100 / 100 50 / 50 100 / 100 50 ml @ 100 mls/hr IV.SIG Q6H [facility] Rx#:[id number] Vancomycin Inj 1,000 MG In NS 250 / 250 Inj 250 ML @ 250 mls/hr IV.SIG Q24H [facility] Rx#:[id number] Tube Feeding 144 / 144 108 / 108 Tube Irrigant 150 / 150 Water Bolus Amount 120 / 120 Other: # Voids 7 # Incontinent Voids 2 Date of Last Bowel Movement 06/12/18 06/12/18 06/13/18 # Bowel Movements 5 # Incontinent Bowel Movements 2 - Constitutional no acute distress - Routine HEENT Exam Head: Present: normocephalic Eye: Present: PERRL ENT: Present: mucous membranes moist, nares patent - Routine Neck Exam Present: supple, trachea midline - Routine Respiratory Exam Present: CTA bilaterally - Routine Cardiovascular Exam Present: RRR, S1, S2 - Routine Abdominal Exam Present: soft, normoactive bowel sounds - Routine Skin Exam Present: intact - Routine Neurological Exam Present: altered mental status Results Procedures completed during hospitalization: None Labs on day of discharge: Labs from last 24 hours 06/13/18 06:13 WBC 6.5 RBC 3.06 L Hgb 9.5 L Hct 29.4 L MCV 96.3 MCH 31.1 MCHC 32.3 RDW 21.0 H Plt Count 231 MPV 10.2 Prelim Diff (Auto) Slide review pending Neut % (Auto) 60.4 Lymph % (Auto) 15.7 [place] % (Auto) 21.8 H Eos % (Auto) 1.5 Baso % (Auto) 0.6 Neut # (Auto) 3.9 Lymph # (Auto) 1.0 [place] # (Auto) 1.4 H Eos # (Auto) 0.1 Baso # (Auto) 0.0 WBC Differential Manual diff final Seg Neuts % (Manual) 48 Band Neuts % (Manual) 15 H Lymphocytes % (Manual) 17 Monocytes % (Manual) 16 H Eosinophils % (Manual) 3 Basophils % (Manual) 1 Abs Neuts (Manual) 4.1 Differential Comment . Platelet Estimate Normal Platelet Morphology Enlarged H Ovalocytes 1+ H Preliminary micro results at discharge 06/10/18 12:50 Aerobic Blood Culture - Preliminary Blood - Peripheral No growth in 3 days Anaerobic Blood Culture - Preliminary No growth in 3 days 06/10/18 12:45 Aerobic Blood Culture - Preliminary Blood - Peripheral No growth in 3 days Anaerobic Blood Culture - Preliminary No growth in 3 days - Impressions ITS Impressions Carotid Doppler Study 06/10/18 00:00 CONCLUSION: 1. Moderate atherosclerotic plaquing at both carotid bifurcations. 2. No focal high-grade or hemodynamically significant stenosis. 3. The left vertebral artery was not visualized. Foot X-Ray 06/10/18 00:00 CONCLUSION: Chronic changes and no definite fracture for technique. Chest X-Ray 06/10/18 12:45 CONCLUSION: 1. Minimal bibasilar airspace disease, presumably atelectasis. Formal PA and lateral views of the chest may be obtained if there is continued clinical uncertainty. Head CT 06/10/18 13:20 CONCLUSION: Acute nonhemorrhagic infarction left MCA territory without any mass effect. Findings were discussed with Dr. Mccray at the time of this dictation on 06/10/2018 at 2:45 hours. Head MRI 06/11/18 00:00 CONCLUSION: 1. Extensive bilateral infarctions worse on the left without any significant mass effect or hemorrhage. Head MRA 06/11/18 00:00 CONCLUSION: 1. There is absent flow past the left M1 and possibility of acute thrombus at this site should be entertained. 2. Extensive atherosclerotic disease bilaterally worse involving the right MCA branches with multiple areas of high-grade stenosis. Discharge Plan - Discharge Disposition Patient Disposition: [facility] - Discharge Condition Condition: Fair - Discharge Order Discharge Orders: Discharge Order (Routine); Ordered 06/13/18 Ordered By: Tish Dixon ED Use Only Admit Order (Routine); Ordered 06/10/18 Ordered By: Don Mccray - Discharge Details Anticipated Discharge Date: 06/13/18 - Physicians Team Primary Care Provider: UNKNOWN, Attending Provider: Mylene Saunders Other Providers: Mike Johnson MD ; Mariluz Velazquez MD ; Kenia Alexander DPM ; Yanni Callaway MD ; Shamar Ragsdale MD
[2018-06-13] MEDS ORDERED: Pharmacy Ordered Lab Info OTHER ONE (15:45)
[2018-06-13 16:08] VITALS: PULSE 111; RESP 18
[2018-06-13 16:33] LABS: Calcium 8.2 mg/dL (8.5-10.1); Carbon Dioxide 24.9 meq/L (21.0-32.0); Magnesium 2.1 mg/dL (1.5-2.5); Phosphorus 2.1 mg/dL (2.5-4.9); Vancomycin,Trough 9.2 mcg/mL (5.0-10.0)
[2018-06-13 16:54] VITALS: BP 151/75; TEMP 100.8; O2SAT 92
== END 2018-06-13 18:15 | disposition hospice, inpatient (51) | DRG 64 ==
LOC: NEPC 12:21 → NEDA 16:18 → HIMC 17:20
PROVIDERS: ADMIT Internal Medicine; ATTEND Internal Medicine
CPT/HCPCS: 70450; 70544; 70551; 71010; 71045; 73620; 80048; 80053; 80202; 81001; 82550; 82552; 82607; 83605; 83735; 84100; 84443; 84484; 85025; 87040; 87086; 87641; 90760; 92610; 93005; 93306; 93880; 94640; 94665; 95819; 96360; 97163; 97166; 99291; G0195; J1644; J2543; J3370; J7030; J7040; J7050; P9612